=== PATIENT | female | born 1950 | race Caucasian/White ===

== ENCOUNTER → 2016-11-11 | Outpatient (CLI) | payer BC ==
[~2016-11-11] MED LIST: ACET-749 PO; ASCO-63 PO; ASPI81TA28 PO; B-CO1CAP17 PO; BIOT1CAP3 PO; CALC-388 PO; CYCL0.052 OP; FERR1TAB24 PO; INSDGI SC; INSU100I2 SC; INSUINJ4 SC; ISOS30TA35 PO; LPR25 PO; LSN20 PO; METF500T5 PO; MULT-513 PO; OMEG10007 PO; PANC24002 PO; PANC6000 PO; PRT/40 PO; ROSU10TA24 PO; ROSU20TA PO; ZINC1TAB PO; ZOLE5INJ3 INJ
--- NOTE | 2016-11-12 07:37 | MAMMOGRAPHY REPORT ---
BILATERAL DIGITAL SCREENING MAMMOGRAM TOMOSYNTHESIS WITH CAD: 11/11/2016 CLINICAL HISTORY: Routine screening. TECHNIQUE: Breast tomosynthesis in addition to standard 2D mammography was performed. Current study was also evaluated with a Computer Aided Detection (CAD) system. COMPARISON: Comparison is made to exams dated: 11/06/2015 mammogram, 11/11/2014 mammogram, 10/30/2012 m ammogram, and 10/31/2013 mammogram - [facility]. BREAST COMPOSITION: The tissue of both breasts is heterogeneously dense, which may obscure small ma sses. FINDINGS: No suspicious masses, calcifications, or areas of architectural distortion are noted in e ither breast. There has been no significant interval change compared to prior exams. IMPRESSION: ACR BI-RADS CATEGORY 1: NEGATIVE There is no mammographic evidence of malignancy. A 1 year screening mammogram is recommended. The p atient will receive written notification of the results. Approximately 10% of breast cancers are not detected with mammography. A negative mammographic repor t should not delay biopsy if a clinically suggestive mass is present. Alexsandra Montero M.D. ah/:11/11/2016 15:50:51 Front Office Associate: Yanet Grimm RT(R)(M)(BD), [facility] letter sent: Normal 1/2 BI-RADS Code: ACR BI-RADS Category 1: Negative
== END | disposition home or self-care (01) ==
LOC: C.MAMM 12:52
PROVIDERS: ATTEND Obstetrics & Gynecology
DX: Z12.31 Encounter for screening mammogram for malignant neoplasm of breast (principal)

== ENCOUNTER → 2016-11-18 | Outpatient (CLI) | payer BC ==
[2016-11-18 17:54] LABS: URINE APPEARANCE TURBID (CLEAR); URINE BILIRUBIN NEG (NEG); URINE COLOR DK YELLOW; URINE EPITHELIAL CELL AUTO >30 /lpf (0-5); URINE NITRITE NEG (NEG); URINE SPECIFIC GRAVITY 1.023 (1.000-1.030); UROBILINOGEN NEG (NEG)
[2016-11-18 17:55] LABS: MANUAL MICROSCOPIC REQUIRED? NO; REVIEW REQ? NO
== END | disposition home or self-care (01) ==
LOC: C.LABBFT 14:37
PROVIDERS: ATTEND Internal Medicine
DX: R39.9 Unspecified symptoms and signs involving the genitourinary system (principal)

== ENCOUNTER → 2017-01-24 | Outpatient (CLI) | payer BC ==
[~2017-01-24] MED LIST changes: -ACET-749 PO; +PANT40TA2 PO; -PRT/40 PO
[2017-01-24 13:49] LABS: ESTIMATED AVERAGE GLUCOSE 186 mg/dl; HA1C FLAG Normal (Normal)
== END | disposition home or self-care (01) ==
LOC: C.LAB1850 11:46
PROVIDERS: ATTEND Nurse Practitioner Family
DX: E10.65 Type 1 diabetes mellitus with hyperglycemia (principal)

== ENCOUNTER → 2017-03-02 | Outpatient (CLI) | payer BC | END | disposition home or self-care (01) | LOC: C.PATHSPEC 16:47 | PROVIDERS: ATTEND Dermatology | DX: L72.11 Pilar cyst (principal) ==

== ENCOUNTER → 2017-04-25 | Outpatient (CLI) | payer BC ==
[~2017-04-25] MED LIST changes: -PANT40TA2 PO; +PRT/40 PO
[2017-04-25 12:56] LABS: ESTIMATED AVERAGE GLUCOSE 206 mg/dl; HA1C FLAG Normal (Normal)
[2017-04-25 13:41] LABS: ALT/SGPT 95 U/L (12-78); BLOOD UREA NITROGEN 24 mg/dl (7-18); BUN/CREATININE RATIO 26.5 (10-20); CALCIUM 9.4 mg/dl (8.5-10.1); CARBON DIOXIDE 29 mmol/L (21-32); CHLORIDE 101 mmol/L (98-107); CREATININE 0.92 mg/dl (0.60-1.20); GLUCOSE 132 mg/dl (70-99); POTASSIUM 4.3 mmol/L (3.5-5.1); SODIUM 136 mmol/L (136-145)
[2017-04-25 13:51] LABS: ALB/GLOB RATIO 1.2 (0.9-2); ALKALINE PHOSPHATASE 68 U/L (45-117); AST/SGOT 95 U/L (15-37); THYROID STIMULATING HORMONE 0.865 uIu/ml (0.300-4.500)
--- NOTE | 2017-05-03 06:33 | CODING QUERY MEDICAL NECESSITY ---
CQSUPPORTING DIAGNOSIS NEEDED A supporting diagnosis is required for the test/procedure performed on this patient in order for us to be reimbursed by the patient's insurance. Please provide a supporting diagnosis for the following test/procedure listed below next to the test name along with your signature. *If there is no additional diagnosis for this patient that would support the following test/procedure please document that below next to the test/procedure. Test(s)/Procedure(s) that require a supporting diagnosis: DOS 04/25/17 VITAMIN D TEST Provider Signature: Date: Thank you Prabha Anton Health Information Management Once completed, please kindly fax back to [phone] For questions please call [phone]
== END | disposition home or self-care (01) ==
LOC: C.LABBFT 11:07
PROVIDERS: ATTEND Internal Medicine
DX: E10.65 Type 1 diabetes mellitus with hyperglycemia (principal); E78.00 Pure hypercholesterolemia, unspecified; E55.9 Vitamin D deficiency, unspecified

== ENCOUNTER → 2017-04-28 | Outpatient (CLI) | payer BC ==
--- NOTE | 2017-04-28 14:07 | DIAGNOSTIC IMAGING REPORT ---
CT SCAN OF THE ABDOMEN COMBO LIVER PROTOCOL CLINICAL HISTORY: Follow-up hepatic lesions. COMPARISON STUDY: Abdominal CT scans dated 05/04/2016, 11/03/2015, and 10/29/2010. Abdominal MRI dated 04/09/2011. TECHNIQUE: Before and following the IV administration of 118 cc of Optiray 320, CT scan of the abdomen is performed from the lung bases to the pelvic inlet utilizing the liver protocol. Images are reviewed in the axial, sagittal, and coronal planes. IV contrast was administered without complication. Automated dose control exposure was utilized. CT DOSE: 771.39 mGycm FINDINGS: Lung bases: The heart is normal in size and without pericardial effusion. The lung bases are clear noting bibasilar atelectasis. Liver: The contrast-enhanced liver is normal in size, contour, and attenuation. There is unchanged appearance of scattered small hepatic hypodense lesions (at least 5). These cannot be definitely characterized but have not significantly changed as compared to recent prior studies. The largest lesions are in the left lobe seen on image #89 measuring 9 mm and in the right lobe on image #101 measuring 10 mm. Hepatic and portal pressure: Hepatic arterial anatomy is conventional. The hepatic artery arises directly from the abdominal aorta. The hepatic veins, portal veins, and superior mesenteric vein are patent. Gallbladder: Surgically absent noting clips in the gallbladder fossa. Spleen: Surgically absent. Pancreas: Surgically absent. Adrenal glands: Unremarkable. Kidneys: The contrast enhanced kidneys are normal in size and without hydronephrosis. The kidneys enhance symmetrically. Abdominal vasculature: The abdominal aorta is normal in course and caliber. 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 There is moderate to severe constipation. There are 2 bowel containing ventral hernias. No bowel obstruction is seen. The appendix is well-visualized and normal. Peritoneum: There is no intraperitoneal free air or abdominal ascites. Lymphadenopathy: None. Skeletal structures: The skeletal structures are osteopenic. There is a 10 mm densely calcified nodule within the thecal sac eccentric to the right at the level of T10. This is unchanged from previous and could represent a small meningioma or calcified disc fragment. No lytic or blastic lesions are seen. IMPRESSION: 1. There are no acute infectious or inflammatory findings in the abdomen or pelvis. 2. 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 3. There are scattered (at least 5) small low-density hepatic lesions. These are too small for definitive characterization and have not significantly changed in appearance as compared to 05/04/2016. 4. Moderate constipation. 5. There are bowel containing ventral hernias. 6. Additional findings as above. Electronically signed by: Alfonso Gill M.D. 04/28/2017 2:05 PM Dictated Date/Time: 04/28/2017 1:45 PM
== END | disposition home or self-care (01) ==
LOC: C.CTS 12:14
PROVIDERS: ATTEND Physician Assistant
DX: K76.9 Liver disease, unspecified (principal); K86.2 Cyst of pancreas; Z90.81 Acquired absence of spleen; Z98.890 Other specified postprocedural states; K59.00 Constipation, unspecified; K43.9 Ventral hernia without obstruction or gangrene

== ENCOUNTER → 2017-05-02 | Outpatient (CLI) | payer BC ==
[2017-05-02 17:58] LABS: URINE APPEARANCE CLEAR (CLEAR); URINE BILIRUBIN NEG (NEG); URINE COLOR YELLOW; URINE NITRITE NEG (NEG); URINE SPECIFIC GRAVITY 1.013 (1.000-1.030); UROBILINOGEN NEG (NEG); ZZUR CULT IF INDIC CLEAN CATCH YES
[2017-05-02 18:01] LABS: MANUAL MICROSCOPIC REQUIRED? NO; REVIEW REQ? NO
== END | disposition home or self-care (01) ==
LOC: C.LABBFT 17:49
PROVIDERS: ATTEND Internal Medicine
DX: R39.9 Unspecified symptoms and signs involving the genitourinary system (principal); R74.0 Nonspecific elevation of levels of transaminase and lactic acid dehydrogenase [LDH]

== ENCOUNTER → 2017-05-31 | Outpatient (CLI) | payer BC | END | disposition home or self-care (01) | LOC: C.LABBFT 13:35 | PROVIDERS: ATTEND Internal Medicine | DX: R74.0 Nonspecific elevation of levels of transaminase and lactic acid dehydrogenase [LDH] (principal) ==

== ENCOUNTER → 2017-06-21 | Day surgery (SDC) | payer BC ==
[2017-06-15 15:48] VITALS: Ht 157.5 cm; Wt 61.4 kg
[~2017-06-21] VITALS: Ht 157.5 cm; Wt 61.4 kg
[~2017-06-21] MED LIST changes: +LIDOCAINE HCL 2% 2 ML VIAL (20MG/ML) ONE; +PROPOFOL IV EMULSION 10 MG/ML 20 ML VIAL IV ONE; -ROSU10TA24 PO; +SODIUM CHLORIDE 0.9% 500ML 500 ML IV ONE; -ZINC1TAB PO
--- NOTE | 2017-06-21 10:37 | Endo History and Physical ---
History & Physical Date of Service: Jun 21, 2017. Chief Complaint: ESOPHAGEAL VARICES Referring Physician: DR CONLEY History of Present Illness 66 yo CF who presents for EGD secondary to esophageal varices. Past Medical History Diabetes, Osteoporosis, Pulmonary Emboli, Reflux, High Cholesterol, Hypertension , Other, [place] Past Surgical History Hx Cardiac Surgery: Yes (HEART CATH, NO STENTS) Hx Internal Defibrillator: No Hx Pacemaker: No Hx Abdominal Surgery: Yes (PARUL, SPLEENECTOMY, PARTIAL GASTRECTOMY, HYSTER, VULVULAR CYSTECTOMY) Hx of Implantable Prosthesis: No Hx Post-Op Nausea and Vomiting: No Hx Cancer Surgery: Yes (PANCREATECTOMY) Hx Thoracic Surgery: No Hx Orthopedic: Yes (LT WRIST SURGERY X2 S/P BREAK) Hx Urinary Tract Surgery: No Family History Polyp Social History Smoking Status: Never Smoker Hx Substance Use: No Hx Alcohol Use: No Allergies Coded Allergies: Oxycodone (Verified Allergy, Unknown, "BRAIN DOESN'T FUNCTION RIGHT", 06/21) Amoxicillin (Verified Adverse Reaction, Unknown, YEAST INFECTIONS, 06/21/17 ) Current Medications Reported Home Medications Medications Dose Route/Sig Max Daily Dose Days Date Category Dose Instructions Lantus (Insulin Glargine) 100 Unit/Ml Inj 9 Units SC HS 06/15/17 Reported Crestor (Rosuvastatin Calcium) 20 Mg Tab 20 Mg PO HS 06/15/17 Reported Zoledronic Acid 5 Mg/100 Ml Inj 5 Mg INJ YEARLY 06/25/16 Reported Calcium + D3 600-200 mg-Unit (Calcium Carbonate-Vitamin D) 1 Tab Tab 2 Tabs PO HS 06/25/16 Reported Biotin 5,000 Mcg Cap 5,000 Mcg PO DAILY 06/25/16 Reported Mvi With Minerals (Multivitamins/Minerals) Tab 1 Tab PO BID 06/25/16 Reported Nephrocaps (Vitamin B Complex/Vit C/Folic Acid) Cap 1 Cap PO NOON 06/25/16 Reported Restasis (Cyclosporine (Ophth)) 0.05 % Emu 1 Drop OP BID PRN 06/25/16 Reported Pantoprazole Sodium (Pantoprazole) 40 Mg Tab 40 Mg PO QAM 06/25/16 Reported Lisinopril 20 Mg Tab 20 Mg PO QAM 06/25/16 Reported Lopressor (Metoprolol Tartrate) 25 Mg Tab 0.5 Tab PO BID 06/25/16 Reported Imdur Ext Rel (Isosorbide Mononitrate) 30 Mg Tabcr 30 Mg PO LUNCH 06/25/16 Reported Humalog Kwikpen (Insulin Lispro (Human)) 100 Unit/Ml Inj 1 Dose SC TIDM 06/25/16 Reported ADMINISTER 1 UNIT FOR EVERY 5 CARBS TAKEN PLUS SLIDING SCALE Lantus Solostar Pen (Insulin Glargine) 100 Unit/ Inj 7 Units SC QAM 06/25/16 Reported Creon (Pancrelipase (Lipase-Protease-) 1 Cap Cap 2 Cap PO WITH SNACKS 08/13/15 Reported Creon (Pancrelipase (Lipase-Protease-) 1 Cap Cap 3 Cap PO WM 08/13/15 Reported Glucophage Er (Metformin HCl) 500 Mg Tab 2 Tabs PO BIDM 09/02/14 Reported Feosol (Ferrous Sulfate) 65 Mg Tab 65 Mg PO QAM 12/17/13 Reported Aspirin Ec (Aspirin) 81 Mg Tab 81 Mg PO HS 09/10/13 Reported Vitamin C (Ascorbic Acid) 500 Mg Tab 500 Mg PO DAILY 02/17/13 Reported [place]-3 (Fish Oil) 1 Ea Cap 1,000 Mg PO BID 10/29/10 Reported Vital Signs Weight (Kilograms): 61.36 Height (Feet): 5 Height (Inches): 2 Physical Exam General Appearance: WD/WN, no apparent distress Respiratory/Chest: Auscultation: breath sounds normal Cardiovascular: Heart Auscultation: RRR Abdomen: Bowel Sounds: normal Inspection & Palpation: soft, non-distended, no tenderness, guarding & rebound Assessment and Plan Assessment: 66 yo CF who presents for EGD secondary to esophageal varices. Plan: Proceed with EGD.
--- NOTE | 2017-06-21 11:29 | Discharge Instructions ---
Endoscopy Patient Instructions Date / Procedure(s) Performed Jun 21, 2017. EGD Allergy Information Coded Allergies: Oxycodone (Verified Allergy, Unknown, "BRAIN DOESN'T FUNCTION RIGHT", 06/21) Amoxicillin (Verified Adverse Reaction, Unknown, YEAST INFECTIONS, 06/21/17 ) Discharge Date / Findings Jun 21, 2017. Small Esophageal varices Medication Instructions Stopped Medication(s): 06/18/17 METFORMIN 06/20/17 ASPIRIN 81MG OK to resume all medications today as prescribed Reported Home Medications Medications Dose Route/Sig Max Daily Dose Days Date Category Dose Instructions Lantus (Insulin Glargine) 100 Unit/Ml Inj 9 Units SC HS 06/15/17 Reported Crestor (Rosuvastatin Calcium) 20 Mg Tab 20 Mg PO HS 06/15/17 Reported Zoledronic Acid 5 Mg/100 Ml Inj 5 Mg INJ YEARLY 06/25/16 Reported Calcium + D3 600-200 mg-Unit (Calcium Carbonate-Vitamin D) 1 Tab Tab 2 Tabs PO HS 06/25/16 Reported Biotin 5,000 Mcg Cap 5,000 Mcg PO DAILY 06/25/16 Reported Mvi With Minerals (Multivitamins/Minerals) Tab 1 Tab PO BID 06/25/16 Reported Nephrocaps (Vitamin B Complex/Vit C/Folic Acid) Cap 1 Cap PO NOON 06/25/16 Reported Restasis (Cyclosporine (Ophth)) 0.05 % Emu 1 Drop OP BID PRN 06/25/16 Reported Pantoprazole Sodium (Pantoprazole) 40 Mg Tab 40 Mg PO QAM 06/25/16 Reported Lisinopril 20 Mg Tab 20 Mg PO QAM 06/25/16 Reported Lopressor (Metoprolol Tartrate) 25 Mg Tab 0.5 Tab PO BID 06/25/16 Reported Imdur Ext Rel (Isosorbide Mononitrate) 30 Mg Tabcr 30 Mg PO LUNCH 06/25/16 Reported Humalog Kwikpen (Insulin Lispro (Human)) 100 Unit/Ml Inj 1 Dose SC TIDM 06/25/16 Reported ADMINISTER 1 UNIT FOR EVERY 5 CARBS TAKEN PLUS SLIDING SCALE Lantus Solostar Pen (Insulin Glargine) 100 Unit/ Inj 7 Units SC QAM 06/25/16 Reported Creon (Pancrelipase (Lipase-Protease-) 1 Cap Cap 2 Cap PO WITH SNACKS 08/13/15 Reported Creon (Pancrelipase (Lipase-Protease-) 1 Cap Cap 3 Cap PO WM 08/13/15 Reported Glucophage Er (Metformin HCl) 500 Mg Tab 2 Tabs PO BIDM 09/02/14 Reported Feosol (Ferrous Sulfate) 65 Mg Tab 65 Mg PO QAM 12/17/13 Reported Aspirin Ec (Aspirin) 81 Mg Tab 81 Mg PO HS 09/10/13 Reported Vitamin C (Ascorbic Acid) 500 Mg Tab 500 Mg PO DAILY 02/17/13 Reported [place]-3 (Fish Oil) 1 Ea Cap 1,000 Mg PO BID 10/29/10 Reported Provider Instructions Activity Restrictions - No exercising or heavy lifting for 24 hours. - Do not drink alcohol the day of the procedure. - Do not drive a car or operate machinery until the day after the procedure. - Do not make any important decisions or sign important papers in 24 hours after the procedure. Following Day: - Return to full activity which may include returning to work/school. Diet Start your diet with liquids and light foods (jello, soup, juice, toast). Then eat your usual diet if not nauseated. Treatment For Common After Affects For mild abdominal pain, bloating, or excessive gas: - Rest - Eat lightly - Lie on right side Follow-Up Information Follow-up with DR CONLEY as scheduled Anesthesia Information What You Should Know You have had a procedure that required some medicine to reduce anxiety and discomfort. This treatment is called moderate sedation. After receiving the treatment, you may be sleepy, but you will be able to breathe on your own. The effects of the treatment may last for several hours. Follow these instructions along with Activity/Diet recommendations noted above: * Do NOT do anything where dizziness or clumsiness would be dangerous. * Rest quietly at home today, then you can be up and about tomorrow. * Have a responsible person stay with you the rest of today. * You may have had an I.V. today. If so, you may take the dressing off later today. Recommendations Call your doctor if: * Trouble breathing * Continuous vomiting for more than 24 hours * Temperature above 101 degrees * Severe abdominal pain or bloating * Pain not relieved by pain medicine ordered * There is increased drainage or redness from any incision * A large amount of rectal bleeding greater than 2-3 tablespoons. (If you had a polyp/s removed or have hemorrhoids, a small amount of blood - from the rectum is to be expected.) * You have any unanswered questions or concerns. IN THE EVENT OF A SERIOUS EMERGENCY, GO TO THE NEAREST EMERGENCY ROOM Your discharge instructions were prepared by provider Joel Main. Patient Instructions Signature Page Maria Antonia Alvarado Patient (or Guardian) Signature/Date: I have read and understand the instructions given to me by my caregivers. Caregiver/RN/Doctor Signature/Date: The above-named patient and/or guardian has received patient instructions on this date. + Original Patient Signature Page (only) stays with chart. Please make copy for patient.
--- NOTE | 2017-06-21 11:36 | GI REPORT ---
Procedure Date: 06/21/2017 10:49 AM Procedure: Upper GI endoscopy Indications: Follow-up of esophageal varices Medicines: Monitored Anesthesia Care Complications: No immediate complications. Estimated Blood Loss: Estimated blood loss: none. Procedure: Pre-Anesthesia Assessment: - Prior to the procedure, a History and Physical was performed, and patient medications and allergies were reviewed. The patient's tolerance of previous anesthesia was also reviewed. The risks and benefits of the procedure and the sedation options and risks were discussed with the patient. All questions were answered, and informed consent was obtained. Prior Anticoagulants: The patient has taken aspirin, last dose was 1 day prior to procedure. ASA Grade Assessment: III - A patient with severe systemic disease. After reviewing the risks and benefits, the patient was deemed in satisfactory condition to undergo the procedure. After obtaining informed consent, the endoscope was passed under direct vision. Throughout the procedure, the patient's blood pressure, pulse, and oxygen saturations were monitored continuously. The scope was introduced through the mouth, and advanced to the second part of duodenum. The upper GI endoscopy was accomplished without difficulty. Findings: Grade I varices were found in the lower third of the esophagus. They were 3 mm in largest diameter. Evidence of an antrectomy was found in the gastric antrum. This was characterized by healthy appearing mucosa. The examined duodenum was normal. Impression: - Grade I esophageal varices. - An antrectomy was found, characterized by healthy appearing mucosa. - Normal examined duodenum. - No specimens collected. Recommendation: - Resume previous diet. - Continue present medications. - Repeat the upper endoscopy in 2 years for surveillance. - Return to primary care physician as previously scheduled. Joel Main, 06/21/2017 11:35:43 AM This report has been signed electronically. Note Initiated On: 06/21/2017 10:49 AM I attest to the content of the Intraoperative Record and orders documented therein, exceptions below
--- NOTE | 2017-06-21 11:50 | Anesthesiology Progress Note ---
Anesthesia Post Op Note Date & Time Jun 21, 2017 at 11:50 Vital Signs Pain Intensity: 0 Vital Signs Past 12 Hours Date Time Temp Pulse Resp B/P (MAP) Pulse Ox O2 Delivery O2 Flow Rate FiO2 06/21/17 11:32 36.5 68 18 140/80 (100) 96 Room Air 06/21/17 10:36 36.8 65 18 162/93 (116) 95 Room Air Notes Mental Status: alert / awake / arousable, participated in evaluation Pt Amnestic to Procedure: Yes Nausea / Vomiting: adequately controlled Pain: adequately controlled Airway Patency, RR, SpO2: stable & adequate BP & HR: stable & adequate Hydration State: stable & adequate Anesthetic Complications: no major complications apparent
[2017-06-21 12:02] VITALS: BP 153/90; PULSE 66; O2SAT 95
== END | disposition home or self-care (01) ==
LOC: C.GI 09:57
PROVIDERS: ATTEND Internal Medicine
DX: I85.00 Esophageal varices without bleeding (principal); E10.9 Type 1 diabetes mellitus without complications; M81.0 Age-related osteoporosis without current pathological fracture; Z86.711 Personal history of pulmonary embolism; K21.9 Gastro-esophageal reflux disease without esophagitis; E78.00 Pure hypercholesterolemia, unspecified; I10 Essential (primary) hypertension; I25.2 Old myocardial infarction; Z90.49 Acquired absence of other specified parts of digestive tract; Z90.81 Acquired absence of spleen; Z90.710 Acquired absence of both cervix and uterus; Z85.07 Personal history of malignant neoplasm of pancreas; Z79.84 Long term (current) use of oral hypoglycemic drugs; Z79.82 Long term (current) use of aspirin

== ENCOUNTER 2017-10-17 19:50 | Inpatient (IN) | payer BC, OTHER ==
[~2017-10-17] VITALS: Ht 157.5 cm; Wt 65.2 kg
[~2017-10-17 19:50] MED LIST changes: -B-CO1CAP17 PO; +B-COCAP2 PO; -LIDOCAINE HCL 2% 2 ML VIAL (20MG/ML) ONE; +LISI-726 PO; -LSN20 PO; +PANT40TA2 PO; -PROPOFOL IV EMULSION 10 MG/ML 20 ML VIAL IV ONE; -PRT/40 PO; -SODIUM CHLORIDE 0.9% 500ML 500 ML IV ONE
[2017-10-17] MEDS ORDERED: ONDANSETRON INJ 2 MG/ML 2 ML VIAL IV STA (19:59)
[2017-10-17] MEDS ORDERED: SODIUM CHLORIDE 0.9% 1000ML 1,000 ML IV STA (19:59)
[2017-10-17] MEDS ORDERED: SODIUM CHLORIDE 0.9% 1000ML 500 ML IV STA (19:59)
[2017-10-17] MEDS ORDERED: FENTANYL CITRATE INJ 50 MCG/1 ML 2 ML VIAL IV PRN (20:00)
[2017-10-17 20:12] LABS: BASO % 0.3 %; BASO ABS # 0.03 K/uL (0-0.2); EOS ABS # 0.12 K/uL (0-0.5); HEMATOCRIT 42.8 % (37-47); IG# 0.05 K/uL (0.00-0.02); LYMPH % 20.6 %; LYMPH ABS # 2.41 K/uL (1.2-3.4); MEAN CELL VOLUME 97.1 fL (80-100); MEAN CORPUSCULAR HEMOGLOBIN 31.7 pg (25-34); MEAN CORPUSCULAR HGB CONC 32.7 g/dl (32-36); MEAN PLATELET VOLUME 11.8 fL (7.4-10.4); MONO % 6.8 %; NEUT % 70.9 %; PLATELET COUNT 298 K/uL (130-400); RED CELL DISTRIBUTION WIDTH CV 12.9 % (11.5-14.5); RED CELL DISTRIBUTION WIDTH SD 45.5 fL (36.4-46.3); WHITE BLOOD COUNT 11.71 K/uL (4.8-10.8)
[2017-10-17 20:35] LABS: ALBUMIN 3.6 gm/dl (3.4-5.0); ALKALINE PHOSPHATASE 78 U/L (45-117); ALT/SGPT 51 U/L (12-78); AST/SGOT 44 U/L (15-37); BLOOD UREA NITROGEN 22 mg/dl (7-18); CALCIUM 9.4 mg/dl (8.5-10.1); CARBON DIOXIDE 28 mmol/L (21-32); GLUCOSE 541 mg/dl (70-99); LIPASE 30 U/L (73-393); POTASSIUM 5.4 mmol/L (3.5-5.1); SODIUM 134 mmol/L (136-145); TOTAL PROTEIN 7.3 gm/dl (6.4-8.2)
[2017-10-17] MEDS ORDERED: NovoLIN-R INSULIN PER UNIT CHARGE IV STA (20:55)
[2017-10-17] MEDS ORDERED: SODIUM CHLORIDE 0.9% 500ML 500 ML IV STA (20:55)
--- NOTE | 2017-10-17 20:57 | DIAGNOSTIC IMAGING REPORT ---
ABD/PELVIS NO IV OR ORAL CONT CLINICAL HISTORY: 66 years-old Female presenting with acute abdominal pain. TECHNIQUE: Multidetector CT of the abdomen and pelvis was performed without the use of intravenous contrast. IV contrast: None. A dose lowering technique was used consistent with the principles of ALARA (as low as reasonably achievable). COMPARISON: 04/28/2017. CT DOSE (mGy.cm): The estimated cumulative dose is 303.91 mGy.cm. FINDINGS: Upkeep Worker topogram: Massive gaseous distention of the stomach. Lung bases: Extensive basilar opacities, likely atelectasis. Solid 8 mm nodule in the right middle lobe (series 3 image 4). Normal heart size. Mild coronary artery calcification. No pericardial or pleural effusion. Liver: Normal morphology. Normal density. Biliary: Expected pneumobilia with a hepaticojejunostomy.. Gallbladder surgically absent. Pancreas: Severe parenchymal atrophy versus postsurgical changes of pancreatectomy. Spleen: Surgically absent. Adrenal glands: Normal. Kidneys and ureters: Left perinephric fat stranding, nonspecific. No hydronephrosis. No nephrolithiasis. Normal proximal ureters. Distal ureters poorly assessed. Bladder: Normal. Pelvic organs: Normal noncontrast appearance. Bowel: Diverticulosis of the sigmoid colon. Small bowel diffusely contains feces. There is significantly dilated small bowel, measuring over 4 cm in diameter. The blind-ending hepatobiliary limb is dilated. Dilated small bowel to the the level of the right lower quadrant at an anastomotic site or suture line, where there is a focal transition point (series 3 image 334). A gastrojejunostomy is noted. Massive dilation of the stomach. Postsurgical changes of distal gastrectomy. Peritoneal cavity: Trace free fluid in the pelvis. Lymph nodes: Suggestion of numerous small retroperitoneal lymph nodes resulting in a diffusely infiltrated appearance of the perivascular region. Vasculature: Atherosclerosis of the normal caliber abdominal aorta. Abdominal wall: Small amount of ascites in a ventral hernia. Additional ventral hernia contains dilated loop of small bowel. Musculoskeletal: Normal. IMPRESSION: 1. Findings consistent with complete small bowel obstruction in the right lower quadrant at the level of anastomosis or suture line. Resulting massive distention of the Jon limb as well as the hepatobiliary limb. 2. Postsurgical changes suggestive of Whipple procedure. 3. Suggestion of numerous small retroperitoneal lymph nodes, which raises concern for malignancy although these may be reactive. 4. Solid 8 mm nodule in the right middle lobe. This was not present on prior CT chest from 2011 and not included within the [id number] on prior abdominal pelvic CT. The report will be called/faxed according to standard departmental protocol. Electronically signed by: Boris Yousif M.D. 10/17/2017 8:56 PM Dictated Date/Time: 10/17/2017 8:42 PM
[2017-10-17] MEDS ORDERED: FERR27TA5 PO (22:07)
[2017-10-17] MEDS ORDERED: INSDGIPEN SC ×2 (22:07)
[2017-10-17] MEDS ORDERED: FERR83TA2 PO (22:09)
--- NOTE | 2017-10-17 22:12 | Medical Consult ---
Consultation Date of Consultation: Oct 17, 2017. Attending Physician: Reason for Consultation: Small bowel obstruction History of Present Illness Patient presented to the ED due to generalized abdominal pain which she states started earlier today while she was eating a large family meal for bernardo. States her pain was about a 5/10 upon presenting to the ED. She reports nausea and dry heaves but is not able to actually vomit anything up due to a surgical history of Magan fundoplication. PSHx also significant for whipple which was performed along with her magan at [facility] in 2010, cholecystectomy, and a prior PSBO. States she did have a bowel movement earlier today. She also reports pushing out a very small amount of stool during her current hospital visit. She does note a small amount of blood but believes this is due to her hemorrhoids. She last ate this afternoon. Upon entering the room, an NG tube was already placed and she does report almost complete remission of her pain and nausea since. Reports that she does have a history of a couple heart attacks in the past and follows with a boat carpenter once a year. She currently takes ASA 81mg PO QD. Denies use of any other blood thinning or anticoagulant medications. Family History No pertinent family history Social History Smoking Status: Never Smoker Drug Use: none Marital Status: Occupation Status: retired Allergies Coded Allergies: Oxycodone (Verified Allergy, Unknown, "BRAIN DOESN'T FUNCTION RIGHT", ) Amoxicillin (Verified Adverse Reaction, Unknown, YEAST INFECTIONS, ) Current Inpatient Medications Current Inpatient Medications Medications (Trade) Dose Ordered Sig/Tacos Route Start Time Stop Time Status Last Admin Dose Admin Sodium Chloride 1,000 ml @ 125 mls/hr Q8H STAT IV 10/17/17 19:59 10/18/17 03:58 Fentanyl Citrate (Fentanyl Inj) 50 mcg Q20M PRN IV 10/17/17 20:00 10/31/17 19:59 10/17/17 20:16 50 MCG Review of Systems Constitutional: No fever, No chills, No sweats, No weight loss Respiratory: No shortness of breath Cardiovascular: No chest pain Abdomen: + pain (Moderate prior to NG, mild now.), + nausea (prior to NG), + vomiting (dry heaves), No diarrhea, No constipation Genitourinary - Female: No dysuria Integumentary: No rash, No color change Physical Exam Date Time Temp Pulse Resp B/P (MAP) Pulse Ox O2 Delivery O2 Flow Rate FiO2 10/17/17 21:33 91 135/91 90 Room Air 10/17/17 20:48 43 10/17/17 20:43 88 10/17/17 20:22 85 22 139/84 93 Nasal Cannula 2.0 10/17/17 20:04 93 Nasal Cannula 2.0 10/17/17 20:04 93 Nasal Cannula 2.0 10/17/17 19:50 90 22 150/102 86 Room Air Patient resting in bed. very relieved since NG tube placement. General Appearance: WD/WN, no apparent distress Head: normocephalic, atraumatic Eyes: normal inspection ENT: hearing grossly normal Neck: trachea midline Respiratory/Chest: no respiratory distress, no accessory muscle use Abdomen/GI: non tender, soft, no organomegaly, no pulsatile mass, + abnormal bowel sounds (mildly hyperactive) Neurologic/Psych: alert, oriented x 3 Skin: normal color, warm/dry, no rash Laboratory Results Last 24 Hours Test 10/17/17 19:30 10/17/17 20:56 White Blood Count 11.71 K/uL Red Blood Count 4.41 M/uL Hemoglobin 14.0 g/dL Hematocrit 42.8 % Mean Corpuscular Volume 97.1 fL Mean Corpuscular Hemoglobin 31.7 pg Mean Corpuscular Hemoglobin Concent 32.7 g/dl Platelet Count 298 K/uL Mean Platelet Volume 11.8 fL Neutrophils (%) (Auto) 70.9 % Lymphocytes (%) (Auto) 20.6 % Monocytes (%) (Auto) 6.8 % Eosinophils (%) (Auto) 1.0 % Basophils (%) (Auto) 0.3 % Neutrophils # (Auto) 8.30 K/uL Lymphocytes # (Auto) 2.41 K/uL Monocytes # (Auto) 0.80 K/uL Eosinophils # (Auto) 0.12 K/uL Basophils # (Auto) 0.03 K/uL RDW Standard Deviation 45.5 fL RDW Coefficient of Variation 12.9 % Immature Granulocyte % (Auto) 0.4 % Immature Granulocyte # (Auto) 0.05 K/uL Sodium Level 134 mmol/L Potassium Level 5.4 mmol/L Chloride Level 98 mmol/L Carbon Dioxide Level 28 mmol/L Anion Gap 8.0 mmol/L Blood Urea Nitrogen 22 mg/dl Creatinine 1.20 mg/dl Est Creatinine Clear Calc Drug Dose 40.3 ml/min Estimated GFR () 54.2 Estimated GFR (Non- 46.7 BUN/Creatinine Ratio 18.7 Random Glucose 541 mg/dl Calcium Level 9.4 mg/dl Total Bilirubin 0.6 mg/dl Direct Bilirubin 0.2 mg/dl Aspartate Amino Transf (AST/SGOT) 44 U/L Alanine Aminotransferase (ALT/SGPT) 51 U/L Alkaline Phosphatase 78 U/L Troponin I < 0.015 ng/ml Total Protein 7.3 gm/dl Albumin 3.6 gm/dl Lipase 30 U/L Beta-Hydroxybutyric Acid 2.64 mg/dL Assessment & Plan Complete small bowel obstruction per CT abd/pelvis in ED Findings discussed with Dr. Joseph Due to her extensive surgical history and significant improvement with NG tube placement we will opt for conservative management at this time. If symptoms persist or worsen we may consider surgical management at that time - No surgical intervention necessary at this time. NPO, IV Fluids, bowel rest. NG tube in place, pain controlled without any pain medication - recommend IV dilaudid PRN for pain if necessary Admission per hospitalist service. Findings and plan discussed with patient and her family - all questions were answered. Surgery will continue to follow during her hospital stay. Please contact with any questions or concerns. Patient seen and examined, labs and imaging reviewed, agree with above. 66-year- old female with history of Whipple procedure and Alissa fundoplication as well as hysterectomy, now with small bowel obstruction. She had a previous episode a few years ago that resolved with non operative management. She had an NG-tube placed in the ER, and her symptoms significantly improved. This morning she states that she has passed a small amount of gas and is feeling much better. Abdomen soft, mildly distended, positive bowel sounds. Continue with non operative management, continue NG tube. If patient would require surgery, based on her complex surgical history she may be better served at a tertiary center. Nathalia Joseph, DO
--- NOTE | 2017-10-17 22:41 | History and Physical ---
History & Physical Date & Time of Service: Oct 17, 2017 at 22:35 Chief Complaint: Ab Pain Primary Care Physician: Collin Yee M.D. History of Present Illness Source: patient, family This is a 66 y/o F who presents with abdominal pain, nausea that started 4 hours ago. She reports that this started shortly after dinner. She has a history of bowel obstruction that resolved on its own without surgery but took about 7 days. She felt that this was similar. The patient has been in significant pain. Her pain was a 10/10 and is currently 5/10. Her last bowel movement was earlier today but it was a small one. She reports a tiny amount of blood that she thinks is from her hemorrhoids. Denies dark stools. She does report being able to pass gas today. The patient has a history of Whipple's procedure for pancreatic cancer. Has diabetes as a result. She denies diarrhea Denies chest pain, shortness of breath She also has an esophageal wrap which prevents her from vomiting, So she mostly dry heaves. Past Medical/Surgical History Medical Problems: (1) DIAB EVA WO COMPL, TYPE II OR UNSPEC TYPE, NOT UNCNTRLD Status: Chronic (2) HYPERTENSION NOS Status: Chronic (3) IRON DEFIC ANEMIA NOS Status: Chronic (4) MALIG JENNIFER PANCREAS NOS Status: Chronic (5) OSTEOPOROSIS NOS Status: Chronic Family History No pertinent family history Social History Smoking Status: Never Smoker Smokeless Tobacco Use: No Alcohol Use: none Drug Use: none Marital Status: Housing status: lives with family Occupational Status: retired Immunizations History of Influenza Vaccine: N/A History of Tetanus Vaccine?: YES - UNKNOWN DATE History of Pneumococcal: Yes History of Hepatitis B Vaccine: YES - UNKNOWN DATE Multi-Drug Resistant Organisms History of MDRO: No Allergies Coded Allergies: Oxycodone (Verified Allergy, Unknown, "BRAIN DOESN'T FUNCTION RIGHT", ) Amoxicillin (Verified Adverse Reaction, Unknown, YEAST INFECTIONS, ) Home Medications Scheduled Ascorbic Acid (Vitamin C), 500 MG PO DAILY Aspirin (Aspirin Ec), 81 MG PO HS Biotin (Biotin), 5,000 MCG PO DAILY Calcium Carbonate-Vitamin D (Calcium + D3 600-200 mg-Unit), 2 TABS PO HS Ferrous Sulfate (Ferrous Sulfate), 65 MG PO DAILY Fish Oil ([place]-3), 1,000 MG PO BID Insulin Glargine (Lantus Solostar), 11 UNITS SC QAM Insulin Glargine (Lantus Solostar), 12 UNITS SC HS Insulin Lispro (Human) (Humalog Kwikpen), 1 DOSE SC TIDM Isosorbide Mononitrate Ext Rel (Imdur Ext Rel), 30 MG PO LUNCH Lisinopril (Lisinopril), 20 MG PO QAM Metformin Hcl Er (Glucophage Er), 1,000 MG PO BIDM Metoprolol Tartrate (Lopressor), 12.5 MG PO BID Multivitamins/Minerals (Mvi With Minerals), 1 TAB PO BID Pancrelipase (Lipase-Protease- (Creon), 3 CAP PO WM Pancrelipase (Lipase-Protease- (Creon), 2 CAP PO WITH SNACKS Pantoprazole (Pantoprazole Sodium), 40 MG PO QAM Rosuvastatin Calcium (Crestor), 20 MG PO HS Vitamin B Cmplx/Vitc/Folic Ac (Nephrocaps), 1 CAP PO NOON Zoledronic Acid (Zoledronic Acid), 5 MG INJ YEARLY Scheduled PRN Cyclosporine (Ophth) (Restasis), 1 DROP OP BID PRN for DRY EYES Review of Systems Constitutional: No fever, No chills Respiratory: No cough, No sputum, No shortness of breath, No dyspnea on exertion, No dyspnea at rest Cardiovascular: No chest pain Abdomen: + pain, + nausea, No vomiting Genitourinary - Female: No dysuria, No urinary frequency, No urinary urgency Physical Exam Vital Signs Date Time Temp Pulse Resp B/P (MAP) Pulse Ox O2 Delivery O2 Flow Rate FiO2 10/17/17 21:33 91 135/91 90 Room Air 10/17/17 20:48 43 10/17/17 20:43 88 10/17/17 20:22 85 22 139/84 93 Nasal Cannula 2.0 10/17/17 20:04 93 Nasal Cannula 2.0 10/17/17 20:04 93 Nasal Cannula 2.0 10/17/17 19:50 90 22 150/102 86 Room Air General Appearance: no apparent distress Eyes: PERRL, EOMI Neck: supple Respiratory/Chest: lungs clear, normal breath sounds, no respiratory distress, no accessory muscle use Cardiovascular: regular rate, rhythm, no murmur Abdomen/GI: non tender, soft, + abnormal bowel sounds (hypoactive) Extremities/Musculoskelatal: no calf tenderness, no pedal edema Neurologic/Psych: no motor/sensory deficits, alert, oriented x 3 Diagnostics Laboratory Results Results Past 24 Hours Test 10/17/17 19:30 10/17/17 20:56 Range/Units White Blood Count 11.71 4.8-10.8 K/uL Red Blood Count 4.41 4.2-5.4 M/uL Hemoglobin 14.0 12.0-16.0 g/dL Hematocrit 42.8 37-47 % Mean Corpuscular Volume 97.1 80-100 fL Mean Corpuscular Hemoglobin 31.7 25-34 pg Mean Corpuscular Hemoglobin Concent 32.7 32-36 g/dl Platelet Count 298 130-400 K/uL Mean Platelet Volume 11.8 7.4-10.4 fL Neutrophils (%) (Auto) 70.9 % Lymphocytes (%) (Auto) 20.6 % Monocytes (%) (Auto) 6.8 % Eosinophils (%) (Auto) 1.0 % Basophils (%) (Auto) 0.3 % Neutrophils # (Auto) 8.30 1.4-6.5 K/uL Lymphocytes # (Auto) 2.41 1.2-3.4 K/uL Monocytes # (Auto) 0.80 0.11-0.59 K/uL Eosinophils # (Auto) 0.12 0-0.5 K/uL Basophils # (Auto) 0.03 0-0.2 K/uL RDW Standard Deviation 45.5 36.4-46.3 fL RDW Coefficient of Variation 12.9 11.5-14.5 % Immature Granulocyte % (Auto) 0.4 % Immature Granulocyte # (Auto) 0.05 0.00-0.02 K/uL Sodium Level 134 136-145 mmol/L Potassium Level 5.4 3.5-5.1 mmol/L Chloride Level 98 98-107 mmol/L Carbon Dioxide Level 28 21-32 mmol/L Anion Gap 8.0 3-11 mmol/L Blood Urea Nitrogen 22 7-18 mg/dl Creatinine 1.20 0.60-1.20 mg/dl Est Creatinine Clear Calc Drug Dose 40.3 ml/min Estimated GFR () 54.2 Estimated GFR (Non- 46.7 BUN/Creatinine Ratio 18.7 10-20 Random Glucose 541 70-99 mg/dl Calcium Level 9.4 8.5-10.1 mg/dl Total Bilirubin 0.6 0.2-1 mg/dl Direct Bilirubin 0.2 0-0.2 mg/dl Aspartate Amino Transf (AST/SGOT) 44 15-37 U/L Alanine Aminotransferase (ALT/SGPT) 51 12-78 U/L Alkaline Phosphatase 78 45-117 U/L Troponin I < 0.015 0-0.045 ng/ml Total Protein 7.3 6.4-8.2 gm/dl Albumin 3.6 3.4-5.0 gm/dl Lipase 30 73-393 U/L Beta-Hydroxybutyric Acid 2.64 0.2-2.81 mg/dL Urine Color YELLOW Urine Appearance CLEAR CLEAR Urine pH 5.0 4.5-7.5 Urine Specific [place] 1.027 1.000-1.030 Urine Protein NEG NEG Urine Glucose (UA) 3+ NEG Urine Ketones NEG NEG Urine Occult Blood NEG NEG Urine Nitrite POS NEG Urine Bilirubin NEG NEG Urine Urobilinogen NEG NEG Urine Leukocyte Esterase NEG NEG Urine WBC (Auto) 1-5 0-5 /hpf Urine RBC (Auto) 0-4 0-4 /hpf Urine Hyaline Casts (Auto) 0 0-5 /lpf Urine Epithelial Cells (Auto) 10-20 0-5 /lpf Urine Bacteria (Auto) 4+ NEG Microbiology Results 10/17/17 Urine Culture, Received Pending Impression Assessment and Plan 66 y/o F presenting with abdominal pain 2/2 SBO small bowel obstruction, complete Evidenced on Abdominal CT NPO, Bowel rest IVF NG decompression Cipro, Flagyl- allergy to Amox Surgery has evaluated the patient and recommends conservative management given extensive history Hyperglycemia, IDDM Given 6 units of regular insulin in the ED for Bsg of 540 Home dose of Lantus given Additional dose of regular insulin 6 units ISS Accu-checks IVFs recheck BMP am Hold metformin CAD / HTN Hold Aspirin, Crestor, Imdur, Lisinopril DVT proph: Lovenox Code: FUll Attending addendum: I have physically seen this patient, have supervised the medical residents activities, and agree with the H&P unless as otherwise noted. Assessment and Plan: Complete small bowel obstruction-- Admitted to the medical surgical floor Nothing by mouth status-hold all oral medications IV fluids NG tube to low intermittent suction Cipro IV/Flagyl IV Seen by surgery in the ED, recommending conservative treatment, we'll consult surgery Hyperglycemia/diabetes mellitus insulin requiring-- Patient took him a lot of extra sugar because she thought her symptoms might be related to low blood sugar, which resulted in high blood sugar. Given 6 units of regular insulin IV in the ED, and another 6 now for blood sugar 540 Continue Lantus home insulin dose Accu-Cheks before meals and at bedtime with NovoLog coverage per scale IV fluids as above Hold metformin BMP and magnesium in the a.m. CAD/hypertension - Hold outpatient dosing of aspirin, Crestor, and lisinopril We will place on Nitropaste to replace IMDUR. Level of Care Med/Surg Advanced Directives Existing Advance Directive: No Existing Living Will: No Existing Power of Parts Sales Manager: No Resuscitation Status FULL RESUSCITATION VTE Prophylaxis VTE Risk Assessment Done? Y/N: Yes Risk Level: Moderate Given or contraindicated: SCD's Social Service Consult None Apply
[2017-10-17] MEDS ORDERED: ONDANSETRON INJ 2 MG/ML 2 ML VIAL IV PRN (22:45)
[2017-10-17] MEDS ORDERED: ENOXAPARIN 40 MG/0.4 ML SYR SQ SCH (22:45)
[2017-10-17] MEDS ORDERED: ALUMINUM/MAGNESIUM/SIMETH (MAALOX MAX) 30 ML UDC PO PRN (22:45)
[2017-10-17] MEDS ORDERED: MAGNESIUM HYDROXIDE SUSP 30 ML UDC PO PRN (22:45)
[2017-10-17] MEDS ORDERED: ACETAMINOPHEN 325 MG TAB PO PRN (22:45)
[2017-10-17] MEDS ORDERED: POLYETHYLENE (MIRALAX) 17 GM PACK PO PRN (22:45)
[2017-10-17 23:57] VITALS: BP 151/76; PULSE 91; TEMP 36.5; O2SAT 91; BMI 26.3
[2017-10-18] VITALS (7 sets, daily range): BP systolic 129–161; BP diastolic 71–97; PULSE 71–96; TEMP 36.5–37.3; O2SAT 91–94
--- NOTE | 2017-10-18 | NUR ---
ID/A: Pt. arrived in room #377-2 at about 0000. Alert and oriented x 4. VSS. Made aware that pt. will be NPO except chips and sips. NSS infusing at 125 ml/hr to left AC vein. Denies pain at this time. NGT to left nare, will be hooked to low intermittent wall suction as ordered. Positive placement on auscultation. Repositions self in bed. Ambulates in room with 1 person assist. Encouraged to ring for assistance, call grier within reach.
[2017-10-18] MEDS ORDERED: DEXTROSE 50% 50 ML SYR IV PRN (00:15)
[2017-10-18] MEDS ORDERED: GLUCOSE 10 TABS/TUBE PO PRN (00:15)
[2017-10-18] MEDS ORDERED: GLUCOSE 40% GEL 15 GM TUBE PO PRN (00:15)
[2017-10-18] MEDS ORDERED: GLUCAGON FOR INJ 1 MG VIAL SQ PRN (00:15)
[2017-10-18] MEDS: INSULIN GLARGINE SOLOSTAR 100 UNITS/ML 3 ML PEN SC SCH ×3 (01:10→21:23)
--- NOTE | 2017-10-18 01:25 | EMERGENCY ROOM VISIT NOTE ---
History Report prepared by Amanda: Dee Dee Olsen Under the Supervision of: Dr. Emery Soto M.D. First contact with patient: 19:56 Chief Complaint: ABDOMINAL PAIN Stated Complaint: AB PAIN History of Present Illness The patient is a 66 year old female who presents to the Emergency Room with complaints of worsening abdominal pain starting four hours ago. The patient states that she had a bowel obstruction 4 years ago. She reports that it feels similar to her previous bowel obstruction and she feels bloated. She reports it started shortly after eating [place] dinner. She notes that she has only ever had one bowel obstruction and it did not require surgery because it passed in seven days. Her daughter states that the patient was pale and writhing in pain before the ambulance gave her medication. She rated her pain as a 10/10 in severity at its worst, but currently rates it as a 1/10 in severity. The patient states that what they gave her worked well. The patient complains of feeling like she needs to vomit, but can't because of her esophageal issues. She states that she has been dry heaving. The patient complains of being fatigued, back pain, and nausea. She notes that she has had two small bowel movements today that were loose and abnormal for her, but denies it being diarrhea. The patient reports that she is in remission from her pancreatic cancer because they removed her pancreas. The patient also notes that her bulge in her abdomen has been there since her main surgery, but usually isn't as hard and noticeable as it is today. Pt denies LOC, headache, fevers, chills, diaphoresis, visual changes, neck pain , chest pain, breathing difficulties, melena, hematochezia, urinary symptoms, numbness, weakness, lymphadenopathy, rash, or other complaints. Source of History: patient Onset: four hours ago Position: abdomen Symptom Intensity: 1/10 Quality: other (bloating, similar to previous bowel obstruction) Timing: worsening Associated Symptoms: + nausea, + back pain, + fatigue Review of Systems See HPI for pertinent positives and negatives. A total of ten systems were reviewed and were otherwise negative. Past Medical & Surgical Medical Problems: (1) DIAB EVA WO COMPL, TYPE II OR UNSPEC TYPE, NOT UNCNTRLD (2) HYPERTENSION NOS (3) IRON DEFIC ANEMIA NOS (4) MALIG JENNIFER PANCREAS NOS (5) OSTEOPOROSIS NOS (6) Small bowel obstruction Family History No pertinent family history Social History Smoking Status: Never Smoker Alcohol Use: none Drug Use: none Marital Status: Housing Status: lives with family Occupation Status: retired Current/Historical Medications Scheduled Ascorbic Acid (Vitamin C), 500 MG PO DAILY Aspirin (Aspirin Ec), 81 MG PO HS Biotin (Biotin), 5,000 MCG PO DAILY Calcium Carbonate-Vitamin D (Calcium + D3 600-200 mg-Unit), 2 TABS PO HS Ferrous Sulfate (Ferrous Sulfate), 65 MG PO DAILY Fish Oil ([place]-3), 1,000 MG PO BID Insulin Glargine (Lantus Solostar), 11 UNITS SC QAM Insulin Glargine (Lantus Solostar), 12 UNITS SC HS Insulin Lispro (Human) (Humalog Kwikpen), 1 DOSE SC TIDM Isosorbide Mononitrate Ext Rel (Imdur Ext Rel), 30 MG PO LUNCH Lisinopril (Lisinopril), 20 MG PO QAM Metformin Hcl Er (Glucophage Er), 1,000 MG PO BIDM Metoprolol Tartrate (Lopressor), 12.5 MG PO BID Multivitamins/Minerals (Mvi With Minerals), 1 TAB PO BID Pancrelipase (Lipase-Protease- (Creon), 3 CAP PO WM Pancrelipase (Lipase-Protease- (Creon), 2 CAP PO WITH SNACKS Pantoprazole (Pantoprazole Sodium), 40 MG PO QAM Rosuvastatin Calcium (Crestor), 20 MG PO HS Vitamin B Cmplx/Vitc/Folic Ac (Nephrocaps), 1 CAP PO NOON Zoledronic Acid (Zoledronic Acid), 5 MG INJ YEARLY Scheduled PRN Cyclosporine (Ophth) (Restasis), 1 DROP OP BID PRN for DRY EYES Allergies Coded Allergies: Oxycodone (Verified Allergy, Unknown, "BRAIN DOESN'T FUNCTION RIGHT", ) Amoxicillin (Verified Adverse Reaction, Unknown, YEAST INFECTIONS, ) Physical Exam Vital Signs Date Time Temp Pulse Resp B/P (MAP) Pulse Ox O2 Delivery O2 Flow Rate FiO2 10/17/17 23:08 95 16 120/86 91 Room Air 10/17/17 21:33 91 135/91 90 Room Air 10/17/17 20:48 43 10/17/17 20:43 88 10/17/17 20:22 85 22 139/84 93 Nasal Cannula 2.0 10/17/17 20:04 93 Nasal Cannula 2.0 10/17/17 20:04 93 Nasal Cannula 2.0 10/17/17 19:50 90 22 150/102 86 Room Air Physical Exam GENERAL: Awake, alert, well-appearing, in no distress HENT: Normocephalic, atraumatic. Oropharynx unremarkable. EYES: Normal conjunctiva. Sclera non-icteric. NECK: Supple. No nuchal rigidity. FROM. No JVD. RESPIRATORY: Clear to auscultation. CARDIAC: Regular rate, normal rhythm. Extremities warm and well perfused. Pulses equal. ABDOMEN: Soft, moderately distended. Diffusely tenderness to palpation. No rebound or guarding. No masses. Midline incisional hernia present. RECTAL: Deferred. MUSCULOSKELETAL: Chest examination reveals no tenderness. The back is symmetrical on inspection without obvious abnormality. There is left CVA tenderness to palpation. No joint edema. LOWER EXTREMITIES: Calves are equal size bilaterally and non-tender. No edema. No discoloration. NEURO: Normal sensorium. No sensory or motor deficits noted. SKIN: No rash or jaundice noted. Medical Decision & Procedures ER Provider Diagnostic Interpretation: Radiology results as stated below per my review and radiologist interpretation: ABD/PELVIS NO IV OR ORAL CONT CLINICAL HISTORY: 66 years-old Female presenting with acute abdominal pain. TECHNIQUE: Multidetector CT of the abdomen and pelvis was performed without the use of intravenous contrast. IV contrast: None. A dose lowering technique was used consistent with the principles of ALARA (as low as reasonably achievable). COMPARISON: 04/28/2017. CT DOSE (mGy.cm): The estimated cumulative dose is 303.91 mGy.cm. FINDINGS: Shoes Hand Sewer topogram: Massive gaseous distention of the stomach. Lung bases: Extensive basilar opacities, likely atelectasis. Solid 8 mm nodule in the right middle lobe (series 3 image 4). Normal heart size. Mild coronary artery calcification. No pericardial or pleural effusion. Liver: Normal morphology. Normal density. Biliary: Expected pneumobilia with a hepaticojejunostomy.. Gallbladder surgically absent. Pancreas: Severe parenchymal atrophy versus postsurgical changes of pancreatectomy. Spleen: Surgically absent. Adrenal glands: Normal. Kidneys and ureters: Left perinephric fat stranding, nonspecific. No hydronephrosis. No nephrolithiasis. Normal proximal ureters. Distal ureters poorly assessed. Bladder: Normal. Pelvic organs: Normal noncontrast appearance. Bowel: Diverticulosis of the sigmoid colon. Small bowel diffusely contains feces. There is significantly dilated small bowel, measuring over 4 cm in diameter. The blind-ending hepatobiliary limb is dilated. Dilated small bowel to the the level of the right lower quadrant at an anastomotic site or suture line, where there is a focal transition point (series 3 image 334). A gastrojejunostomy is noted. Massive dilation of the stomach. Postsurgical changes of distal gastrectomy. Peritoneal cavity: Trace free fluid in the pelvis. Lymph nodes: Suggestion of numerous small retroperitoneal lymph nodes resulting in a diffusely infiltrated appearance of the perivascular region. Vasculature: Atherosclerosis of the normal caliber abdominal aorta. Abdominal wall: Small amount of ascites in a ventral hernia. Additional ventral hernia contains dilated loop of small bowel. Musculoskeletal: Normal. IMPRESSION: 1. Findings consistent with complete small bowel obstruction in the right lower quadrant at the level of anastomosis or suture line. Resulting massive distention of the Jon limb as well as the hepatobiliary limb. 2. Postsurgical changes suggestive of Whipple procedure. 3. Suggestion of numerous small retroperitoneal lymph nodes, which raises concern for malignancy although these may be reactive. 4. Solid 8 mm nodule in the right middle lobe. This was not present on prior CT chest from 2011 and not included within the [id number] on prior abdominal pelvic CT. The report will be called/faxed according to standard departmental protocol. Electronically signed by: Boris Yousif M.D. 10/17/2017 8:56 PM Dictated Date/Time: 10/17/2017 8:42 PM Laboratory Results 10/17/17 19:30 Red Blood Count 4.41, Mean Corpuscular Volume 97.1, Mean Corpuscular Hemoglobin 31.7, Mean Corpuscular Hemoglobin Concent 32.7, Mean Platelet Volume 11.8, Neutrophils (%) (Auto) 70.9, Lymphocytes (%) (Auto) 20.6, Monocytes (%) (Auto) 6.8, Eosinophils (%) (Auto) 1.0, Basophils (%) (Auto) 0.3, Neutrophils # (Auto) 8.30, Lymphocytes # (Auto) 2.41, Monocytes # (Auto) 0.80, Eosinophils # (Auto) 0.12, Basophils # (Auto) 0.03 10/17/17 19:30 Test 10/17/17 19:30 10/17/17 20:56 White Blood Count 11.71 K/uL (4.8-10.8) Red Blood Count 4.41 M/uL (4.2-5.4) Hemoglobin 14.0 g/dL (12.0-16.0) Hematocrit 42.8 % (37-47) Mean Corpuscular Volume 97.1 fL (80-100) Mean Corpuscular Hemoglobin 31.7 pg (25-34) Mean Corpuscular Hemoglobin Concent 32.7 g/dl (32-36) Platelet Count 298 K/uL (130-400) Mean Platelet Volume 11.8 fL (7.4-10.4) Neutrophils (%) (Auto) 70.9 % Lymphocytes (%) (Auto) 20.6 % Monocytes (%) (Auto) 6.8 % Eosinophils (%) (Auto) 1.0 % Basophils (%) (Auto) 0.3 % Neutrophils # (Auto) 8.30 K/uL (1.4-6.5) Lymphocytes # (Auto) 2.41 K/uL (1.2-3.4) Monocytes # (Auto) 0.80 K/uL (0.11-0.59) Eosinophils # (Auto) 0.12 K/uL (0-0.5) Basophils # (Auto) 0.03 K/uL (0-0.2) RDW Standard Deviation 45.5 fL (36.4-46.3) RDW Coefficient of Variation 12.9 % (11.5-14.5) Immature Granulocyte % (Auto) 0.4 % Immature Granulocyte # (Auto) 0.05 K/uL (0.00-0.02) Anion Gap 8.0 mmol/L (3-11) Est Creatinine Clear Calc Drug Dose 40.3 ml/min Estimated GFR () 54.2 Estimated GFR (Non- 46.7 BUN/Creatinine Ratio 18.7 (10-20) Calcium Level 9.4 mg/dl (8.5-10.1) Total Bilirubin 0.6 mg/dl (0.2-1) Direct Bilirubin 0.2 mg/dl (0-0.2) Aspartate Amino Transf (AST/SGOT) 44 U/L (15-37) Alanine Aminotransferase (ALT/SGPT) 51 U/L (12-78) Alkaline Phosphatase 78 U/L (45-117) Troponin I < 0.015 ng/ml (0-0.045) Total Protein 7.3 gm/dl (6.4-8.2) Albumin 3.6 gm/dl (3.4-5.0) Lipase 30 U/L (73-393) Beta-Hydroxybutyric Acid 2.64 mg/dL (0.2-2.81) Urine Color YELLOW Urine Appearance CLEAR (CLEAR) Urine pH 5.0 (4.5-7.5) Urine Specific [place] 1.027 (1.000-1.030) Urine Protein NEG (NEG) Urine Glucose (UA) 3+ (NEG) Urine Ketones NEG (NEG) Urine Occult Blood NEG (NEG) Urine Nitrite POS (NEG) Urine Bilirubin NEG (NEG) Urine Urobilinogen NEG (NEG) Urine Leukocyte Esterase NEG (NEG) Urine WBC (Auto) 1-5 /hpf (0-5) Urine RBC (Auto) 0-4 /hpf (0-4) Urine Hyaline Casts (Auto) 0 /lpf (0-5) Urine Epithelial Cells (Auto) 10-20 /lpf (0-5) Urine Bacteria (Auto) 4+ (NEG) Laboratory results reviewed by me Medications Administered Medications (Trade) Dose Ordered Sig/Tacos Route Start Time Stop Time Status Last Admin Dose Admin Sodium Chloride 1,000 ml @ 125 mls/hr Q8H STAT IV 10/17/17 19:59 10/18/17 00:04 DC 10/17/17 19:59 125 MLS/HR Sodium Chloride 500 ml @ 999 mls/hr Q31M STAT IV 10/17/17 19:59 10/17/17 20:29 DC 10/17/17 19:59 999 MLS/HR Fentanyl Citrate (Fentanyl Inj) 50 mcg Q20M PRN IV 10/17/17 20:00 10/18/17 00:04 DC 10/17/17 20:16 50 MCG Insulin Human Regular (novoLIN-R U-100 PER UNIT) 6 units NOW STAT IV 10/17/17 20:55 10/17/17 20:57 DC 10/17/17 21:45 6 UNITS Sodium Chloride 500 ml @ 999 mls/hr Q31M STAT IV 10/17/17 20:55 10/17/17 21:25 DC 10/17/17 21:39 999 MLS/HR Procedure NG tube placement: The patient had a nasogastric tube placed by me in the left naris. This was confirmed by auscultation. Significant stomach contents and air aspirated. Patient felt significantly better afterwards. No, medications. ECG Indication: abdominal pain Rate (beats per minute): 86 Rhythm: normal sinus Findings: T-wave inversion (Inferior), no ectopy Comparison ECG Date: June 29, 2016 Change: Inferior T-wave inversions have replaced the nonspecific-ST abnormality. ED Course 1956: The patient was evaluated in room C4. A complete history and physical exam was performed. 1958: Ordered Zofran Inj 4 mg IV, NSS 500 ml @ 999 mls/hr IV, NSS 1000 ml @ 125 mls/hr IV. 1999: Ordered Fentanyl Inj 50 mcg PRN IV Pain. 2010: I reevaluated the patient and she is doing okay. 2031: I reevaluated the patient and she is doing well. 2054: Ordered NSS 500 ml @ 999 mls/hr IV, Insulin Human Regular 6 units IV. 2110: Discussed the patient's case with Dr. Joseph- Dominique. They will come see the patient and asked for internal medicine to admit. 2209: Discussed the patient's case with Dr. Hinkle. The patient will be evaluated for further treatment and disposition. Medical Decision Triage Nursing notes reviewed. The patient's presentation and history were concerning for abdominal pain and prior bowel obstruction. Etiologies such as obstruction, appendicitis, diverticulitis, inflammatory bowel disease, renal colic, PUD, biliary pathology, pancreatitis, mesenteric ischemia, aortic pathology, infections, genitourinary, UTI, perforated viscus, as well as others were entertained. The patient was evaluated. She was doing somewhat better from the medication received prehospital. Her abdomen is very distended. This is concerning for obstruction. The patient blood work obtained. She was given IV hydration. She received IV Zofran. She was sent to CT imaging. She has had significant distention of her stomach and bowel consistent with small bowel obstruction. I did place an NG tube and this relieved a significant amount of discomfort for the patient. Consultation was made with general surgery as well as internal medicine. The patient was also given a dose of IV insulin for hyperglycemia. Patient and family were informed of the issues. The patient was evaluated in the Emergency Room for further management. Medication Reconcilliation Current Medication List: was personally reviewed by me Blood Pressure Screening Patient's blood pressure: Normal blood pressure Will be further monitored by hospitalist. Consults Time Called: 2105 Consulting Physician: Dr. Joseph- Dominique Returned Call: 2110 Discussed the patient's case with Dr. Joseph- Dominique. They will come see the patient and asked for internal medicine to admit. Additional Consults: Time Called: 2204 Consulted Physician: Dr. Hinkle- Hospitalist Returned Call: 2209 Additional Comments: Discussed the patient's case with Dr. Hinkle. The patient will be evaluated for further treatment and disposition. Impression Primary Impression: Small bowel obstruction Scribe Attestation The scribe's documentation has been prepared under my direction and personally reviewed by me in its entirety. I confirm that the note above accurately reflects all work, treatment, procedures, and medical decision making performed by me. Departure Information Dispostion Being Evaluated By Hospitalist Referrals Collin Yee M.D. (PCP) Patient Instructions [facility]
[2017-10-18] MEDS ORDERED: NURSING VERBAL MED ORDER ONE ×3 (03:45→21:00)
[2017-10-18] MEDS: METRONIDAZOLE / NSS 500 MG in PREMIXED NSS 100 ML IV SCH ×3 (03:47→19:47)
[2017-10-18] MEDS ORDERED: INSULIN HUMAN REGULAR PER UNIT 6 UNITS in SYRINGE 5.94 ML IV SCH (04:00)
[2017-10-18] MEDS ORDERED: INSULIN ASPART 100 UNITS/ML 3 ML PEN SC SCH ×2 (04:00→08:00)
[2017-10-18] MEDS: SODIUM CHLORIDE 0.9% 1000ML 1,000 ML IV SCH ×3 (04:07→19:47)
[2017-10-18] MEDS ORDERED: FAMOTIDINE IV INJ 20 MG in DEXTROSE 5% 100ML 100 ML IV SCH (06:00)
[2017-10-18] MEDS ORDERED: NITROGLYCERIN OINT 2% 1GM PACKET EXT SCH (06:00)
[2017-10-18] MEDS: INSULIN ASPART 100 UNITS/ML 3 ML PEN SC SCH ×4 (06:00→21:22)
[2017-10-18 06:20] LABS: CALCIUM 8.6 mg/dl (8.5-10.1); CREATININE 0.95 mg/dl (0.60-1.20); POTASSIUM 3.7 mmol/L (3.5-5.1)
[2017-10-18] MEDS: FAMOTIDINE IV INJ 20 MG in SYRINGE 3 ML IV SCH ×2 (06:34→18:16)
[2017-10-18] MEDS ORDERED: INSULIN ASPART 100 UNITS/ML 3 ML PEN SC STA (07:03)
--- NOTE | 2017-10-18 07:42 | Surgery Progress Note ---
Surgery Progress Note Date of Service Oct 18, 2017. Subjective + feeling well, + flatus, + pain controlled, No complaints, No nausea, No vomiting Objective Vital Signs: Date Time Temp Pulse Resp B/P (MAP) Pulse Ox O2 Delivery O2 Flow Rate FiO2 10/18/17 07:02 37.3 96 16 143/77 (99) 92 Room Air 10/18/17 06:41 95 138/71 (93) 10/18/17 00:00 36.5 92 18 151/76 (101) 91 Room Air 10/18/17 00:00 93 Nasal Cannula 2.0 10/17/17 23:57 36.5 91 16 151/76 91 Room Air 10/17/17 23:08 95 16 120/86 91 Room Air 10/17/17 21:33 91 135/91 90 Room Air 10/17/17 20:48 43 10/17/17 20:43 88 10/17/17 20:22 85 22 139/84 93 Nasal Cannula 2.0 10/17/17 20:04 93 Nasal Cannula 2.0 10/17/17 20:04 93 Nasal Cannula 2.0 10/17/17 19:50 90 22 150/102 86 Room Air Physical Exam: nasogastric drainage (40 mL) General Appearance: WD/WN, no apparent distress Head: normocephalic, atraumatic Abdomen: non tender, + distended, + pertinent finding Laboratory Results: Results Past 24 Hours Test 10/17/17 19:30 10/17/17 20:56 10/18/17 00:33 10/18/17 03:11 Range/Units White Blood Count 11.71 4.8-10.8 K/uL Red Blood Count 4.41 4.2-5.4 M/uL Hemoglobin 14.0 12.0-16.0 g/dL Hematocrit 42.8 37-47 % Mean Corpuscular Volume 97.1 80-100 fL Mean Corpuscular Hemoglobin 31.7 25-34 pg Mean Corpuscular Hemoglobin Concent 32.7 32-36 g/dl Platelet Count 298 130-400 K/uL Mean Platelet Volume 11.8 7.4-10.4 fL Neutrophils (%) (Auto) 70.9 % Lymphocytes (%) (Auto) 20.6 % Monocytes (%) (Auto) 6.8 % Eosinophils (%) (Auto) 1.0 % Basophils (%) (Auto) 0.3 % Neutrophils # (Auto) 8.30 1.4-6.5 K/uL Lymphocytes # (Auto) 2.41 1.2-3.4 K/uL Monocytes # (Auto) 0.80 0.11-0.59 K/uL Eosinophils # (Auto) 0.12 0-0.5 K/uL Basophils # (Auto) 0.03 0-0.2 K/uL RDW Standard Deviation 45.5 36.4-46.3 fL RDW Coefficient of Variation 12.9 11.5-14.5 % Immature Granulocyte % (Auto) 0.4 % Immature Granulocyte # (Auto) 0.05 0.00-0.02 K/uL Sodium Level 134 136-145 mmol/L Potassium Level 5.4 3.5-5.1 mmol/L Chloride Level 98 98-107 mmol/L Carbon Dioxide Level 28 21-32 mmol/L Anion Gap 8.0 3-11 mmol/L Blood Urea Nitrogen 22 7-18 mg/dl Creatinine 1.20 0.60-1.20 mg/dl Est Creatinine Clear Calc Drug Dose 40.3 ml/min Estimated GFR () 54.2 Estimated GFR (Non- 46.7 BUN/Creatinine Ratio 18.7 10-20 Random Glucose 541 70-99 mg/dl Calcium Level 9.4 8.5-10.1 mg/dl Total Bilirubin 0.6 0.2-1 mg/dl Direct Bilirubin 0.2 0-0.2 mg/dl Aspartate Amino Transf (AST/SGOT) 44 15-37 U/L Alanine Aminotransferase (ALT/SGPT) 51 12-78 U/L Alkaline Phosphatase 78 45-117 U/L Troponin I < 0.015 0-0.045 ng/ml Total Protein 7.3 6.4-8.2 gm/dl Albumin 3.6 3.4-5.0 gm/dl Lipase 30 73-393 U/L Beta-Hydroxybutyric Acid 2.64 0.2-2.81 mg/dL Urine Color YELLOW Urine Appearance CLEAR CLEAR Urine pH 5.0 4.5-7.5 Urine Specific [place] 1.027 1.000-1.030 Urine Protein NEG NEG Urine Glucose (UA) 3+ NEG Urine Ketones NEG NEG Urine Occult Blood NEG NEG Urine Nitrite POS NEG Urine Bilirubin NEG NEG Urine Urobilinogen NEG NEG Urine Leukocyte Esterase NEG NEG Urine WBC (Auto) 1-5 0-5 /hpf Urine RBC (Auto) 0-4 0-4 /hpf Urine Hyaline Casts (Auto) 0 0-5 /lpf Urine Epithelial Cells (Auto) 10-20 0-5 /lpf Urine Bacteria (Auto) 4+ NEG Bedside Glucose 399 399 70-90 mg/dl Test 10/18/17 05:08 10/18/17 05:10 10/18/17 06:37 10/18/17 07:04 Range/Units Bedside Glucose 315 246 70-90 mg/dl Prothrombin Time 10.7 9.0-12.0 SECONDS Prothromb Time International Ratio 1.0 0.9-1.1 Sodium Level 137 136-145 mmol/L Potassium Level 3.7 3.5-5.1 mmol/L Chloride Level 104 98-107 mmol/L Carbon Dioxide Level 23 21-32 mmol/L Anion Gap 10.0 3-11 mmol/L Blood Urea Nitrogen 25 7-18 mg/dl Creatinine 0.95 0.60-1.20 mg/dl Est Creatinine Clear Calc Drug Dose 50.9 ml/min Estimated GFR () 71.8 Estimated GFR (Non- 62.0 BUN/Creatinine Ratio 26.2 10-20 Random Glucose 311 70-99 mg/dl Calcium Level 8.6 8.5-10.1 mg/dl Beta-Hydroxybutyric Acid 2.28 0.2-2.81 mg/dL Lactic Acid Level 3.0 0.4-2.0 mmol/L Microbiology Results 10/17/17 Urine Culture, Received Pending Assessment & Plan 10/18/2017- Complete Small Bowel Obstruction Patient resting comfortably in bed- no new concerns or complaints overnight. NG tube to remain in place for now. Reports abdominal pain is nearly gone. +Flatus Will continue sips and chips until NG tube is removed. 10/17/2017-Complete small bowel obstruction per CT abd/pelvis in ED Findings discussed with Dr. Joseph Due to her extensive surgical history and significant improvement with NG tube placement we will opt for conservative management at this time. If symptoms persist or worsen we may consider surgical management at that time - No surgical intervention necessary at this time. NPO, IV Fluids, bowel rest. NG tube in place, pain controlled without any pain medication - recommend IV dilaudid PRN for pain if necessary Admission per hospitalist service. Findings and plan discussed with patient and her family - all questions were answered. Surgery will continue to follow during her hospital stay. Please contact with any questions or concerns.
[2017-10-18] MEDS ORDERED: INSULIN HUMAN REGULAR SC SCH (08:00)
[2017-10-18] MEDS ORDERED: OMEGA-3 (PURIFIED FISH OIL) 1 GM CAP PO SCH (09:00)
[2017-10-18] MEDS ORDERED: PANTOprazole SOD 40 MG TAB PO SCH (09:00)
[2017-10-18] MEDS ORDERED: NEPHROCAPS PO SCH (09:00)
[2017-10-18] MEDS ORDERED: LISINOPRIL 20 MG TAB PO SCH (09:00)
[2017-10-18] MEDS ORDERED: CEROVITE ADV FORMULA TAB PO SCH (09:00)
[2017-10-18] MEDS ORDERED: ISOSORBIDE MONONITRATE 30 MG TABCR PO SCH (09:00)
[2017-10-18] MEDS: CIPROFLOXACIN / D5W 400 MG in PREMIXED IN D5W 200 ML IV SCH ×2 (09:16→21:12)
[2017-10-18] MEDS: METOPROLOL TARTRATE 25 MG TAB PO SCH ×2 (09:17→21:27)
[2017-10-18 10:05] LABS: HEMOGLOBIN A1C 8.5 % (4.5-5.6)
[2017-10-18] MEDS: NITROGLYCERIN 2% OINTMENT 30GM TUBE EXT SCH ×2 (11:53→18:15)
[2017-10-18] MEDS ORDERED: KETOROLAC TROMETHAMINE 30 MG/ML VIAL IV STA (17:05)
--- NOTE | 2017-10-18 18:33 | Family Medicine Progress Note ---
Progress Note Date of Service Oct 18, 2017. Subjective Pt evaluation today including: conversation w/ patient, physical exam, chart review, lab review, review of studies Pain: patient reports no abdominal pain PO Intake: NPO, NGT in situ Voiding: no voiding problems Patient reports she is feeling drastically better since last night. She states she has no abdominal pain, has started to pass flatus, and had only minimal "gagging" nausea which she believes is related to the NGT and not her illness. Constitutional: No fever, No chills, No sweats, No weight loss, No weakness , No fatigue, No problem reported Respiratory: No cough, No sputum, No wheezing, No shortness of breath Cardiovascular: No chest pain, No orthopnea, No PND, No edema, No claudication, No palpitations, No problem reported Abdomen: + nausea (related to NGT), No see HPI, No pain, No vomiting, No diarrhea, No constipation, No GI bleeding Female : No see HPI, No dysuria, No urinary frequency, No hematuria Neurologic: No memory loss, No paralysis, No weakness, No numbness/tingling , No vertigo, No balance problems, No problem reported All Other Systems: Reviewed and Negative Medications Current Inpatient Medications Medications (Trade) Dose Ordered Sig/Tacos Route Start Time Stop Time Status Last Admin Dose Admin Ondansetron HCl (Zofran Inj) 4 mg Q6H PRN IV 10/17/17 22:45 11/16/17 22:44 Insulin Glargine (Lantus Solostar Pen) 11 units QAM SC 10/18/17 09:00 11/17/17 08:59 10/18/17 09:20 11 UNITS Insulin Glargine (Lantus Solostar Pen) 12 units HS SC 10/18/17 21:00 11/17/17 20:59 10/18/17 01:10 12 UNITS Metoprolol Tartrate (Lopressor Tab) 12.5 mg BID PO 10/18/17 09:00 11/17/17 08:59 10/18/17 09:17 12.5 MG Glucose (Glucose 40% Gel) 15-30 GRAMS 15 GRAMS... UD PRN PO 10/18/17 00:15 11/17/17 00:14 Glucose (Glucose Chew Tab) 4-8 Tablets 4 Tabl... UD PRN PO 10/18/17 00:15 11/17/17 00:14 Dextrose (Dextrose 50% 50ML Syringe) 25-50ML OF 50% DW IV FOR... UD PRN IV 10/18/17 00:15 11/17/17 00:14 Glucagon (Glucagon Inj) 1 mg UD PRN SQ 10/18/17 00:15 11/17/17 00:14 Ciprofloxacin/ Dextrose 400 mg/ Prmx 200 ml @ 100 mls/hr Q12 IV 10/18/17 09:00 10/28/17 08:59 10/18/17 09:16 100 MLS/HR Metronidazole 500 mg/Prmx 100 ml @ 100 mls/hr Q8H IV 10/18/17 04:00 10/28/17 03:59 10/18/17 11:54 100 MLS/HR Insulin Aspart (novoLOG ASPART) SLIDING SCALE G... Q6 SC 10/18/17 06:00 11/17/17 05:59 10/18/17 06:00 2 UNITS Sodium Chloride 1,000 ml @ 125 mls/hr Q8H IV 10/18/17 04:00 11/17/17 03:59 10/18/17 16:57 125 MLS/HR Famotidine 20 mg/ Syringe 5 ml @ 2.5 mls/min Q12H IV 10/18/17 06:00 11/17/17 05:59 10/18/17 06:34 2.5 MLS/MIN Nitroglycerin (Nitroglycerin 2% Oint) 1 inch Q6H EXT 10/18/17 12:00 11/17/17 05:59 10/18/17 11:53 1 INCH Objective Vital Signs Date Time Temp Pulse Resp B/P (MAP) Pulse Ox O2 Delivery O2 Flow Rate FiO2 10/18/17 15:49 Room Air 10/18/17 15:00 36.6 80 20 149/97 (114) 94 Room Air 10/18/17 11:39 74 16 161/87 (111) 94 Room Air 10/18/17 07:35 Room Air 10/18/17 07:02 37.3 96 16 143/77 (99) 92 Room Air 10/18/17 06:41 95 138/71 (93) 10/18/17 00:00 36.5 92 18 151/76 (101) 91 Room Air 10/18/17 00:00 93 Nasal Cannula 2.0 10/17/17 23:57 36.5 91 16 151/76 91 Room Air 10/17/17 23:08 95 16 120/86 91 Room Air 10/17/17 21:33 91 135/91 90 Room Air 10/17/17 20:48 43 10/17/17 20:43 88 10/17/17 20:22 85 22 139/84 93 Nasal Cannula 2.0 10/17/17 20:04 93 Nasal Cannula 2.0 10/17/17 20:04 93 Nasal Cannula 2.0 10/17/17 19:50 90 22 150/102 86 Room Air Physical Exam General Appearance: WD/WN, no apparent distress Eyes: normal inspection, PERRL, EOMI, sclerae normal ENT: normal ENT inspection, hearing grossly normal, TMs normal, pharynx normal Neck: supple, no adenopathy, no JVD, trachea midline Respiratory/Chest: chest non-tender, lungs clear, normal breath sounds, no respiratory distress, no accessory muscle use Cardiovascular: regular rate, rhythm, no edema, no gallop, no JVD, no murmur Abdomen: normal bowel sounds, non tender, soft Extremities: normal range of motion, non-tender, normal inspection, no pedal edema Neurologic/Psychiatric: 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-XII nml as tested, no motor/sensory deficits, alert, normal mood/affect, oriented x 3 Skin: normal color, warm/dry, no rash Laboratory Results 10/17/17 19:30 Red Blood Count 4.41, Mean Corpuscular Volume 97.1, Mean Corpuscular Hemoglobin 31.7, Mean Corpuscular Hemoglobin Concent 32.7, Mean Platelet Volume 11.8, Neutrophils (%) (Auto) 70.9, Lymphocytes (%) (Auto) 20.6, Monocytes (%) (Auto) 6.8, Eosinophils (%) (Auto) 1.0, Basophils (%) (Auto) 0.3, Neutrophils # (Auto) 8.30, Lymphocytes # (Auto) 2.41, Monocytes # (Auto) 0.80, Eosinophils # (Auto) 0.12, Basophils # (Auto) 0.03 10/18/17 05:10 Test 10/17/17 19:30 10/17/17 20:56 10/18/17 05:10 10/18/17 08:30 White Blood Count 11.71 K/uL (4.8-10.8) Red Blood Count 4.41 M/uL (4.2-5.4) Hemoglobin 14.0 g/dL (12.0-16.0) Hematocrit 42.8 % (37-47) Mean Corpuscular Volume 97.1 fL (80-100) Mean Corpuscular Hemoglobin 31.7 pg (25-34) Mean Corpuscular Hemoglobin Concent 32.7 g/dl (32-36) Platelet Count 298 K/uL (130-400) Mean Platelet Volume 11.8 fL (7.4-10.4) Neutrophils (%) (Auto) 70.9 % Lymphocytes (%) (Auto) 20.6 % Monocytes (%) (Auto) 6.8 % Eosinophils (%) (Auto) 1.0 % Basophils (%) (Auto) 0.3 % Neutrophils # (Auto) 8.30 K/uL (1.4-6.5) Lymphocytes # (Auto) 2.41 K/uL (1.2-3.4) Monocytes # (Auto) 0.80 K/uL (0.11-0.59) Eosinophils # (Auto) 0.12 K/uL (0-0.5) Basophils # (Auto) 0.03 K/uL (0-0.2) RDW Standard Deviation 45.5 fL (36.4-46.3) RDW Coefficient of Variation 12.9 % (11.5-14.5) Immature Granulocyte % (Auto) 0.4 % Immature Granulocyte # (Auto) 0.05 K/uL (0.00-0.02) Total Bilirubin 0.6 mg/dl (0.2-1) Direct Bilirubin 0.2 mg/dl (0-0.2) Aspartate Amino Transf (AST/SGOT) 44 U/L (15-37) Alanine Aminotransferase (ALT/SGPT) 51 U/L (12-78) Alkaline Phosphatase 78 U/L (45-117) Troponin I < 0.015 ng/ml (0-0.045) Total Protein 7.3 gm/dl (6.4-8.2) Albumin 3.6 gm/dl (3.4-5.0) Lipase 30 U/L (73-393) Urine Color YELLOW Urine Appearance CLEAR (CLEAR) Urine pH 5.0 (4.5-7.5) Urine Specific [place] 1.027 (1.000-1.030) Urine Protein NEG (NEG) Urine Glucose (UA) 3+ (NEG) Urine Ketones NEG (NEG) Urine Occult Blood NEG (NEG) Urine Nitrite POS (NEG) Urine Bilirubin NEG (NEG) Urine Urobilinogen NEG (NEG) Urine Leukocyte Esterase NEG (NEG) Urine WBC (Auto) 1-5 /hpf (0-5) Urine RBC (Auto) 0-4 /hpf (0-4) Urine Hyaline Casts (Auto) 0 /lpf (0-5) Urine Epithelial Cells (Auto) 10-20 /lpf (0-5) Urine Bacteria (Auto) 4+ (NEG) Prothrombin Time 10.7 SECONDS (9.0-12.0) Prothromb Time International Ratio 1.0 (0.9-1.1) Anion Gap 10.0 mmol/L (3-11) Est Creatinine Clear Calc Drug Dose 50.9 ml/min Estimated GFR () 71.8 Estimated GFR (Non- 62.0 BUN/Creatinine Ratio 26.2 (10-20) Calcium Level 8.6 mg/dl (8.5-10.1) Beta-Hydroxybutyric Acid 2.28 mg/dL (0.2-2.81) Hepatitis C Antibody Screen NEG (NEG) Estimated Average Glucose 197 mg/dl Hemoglobin A1c 8.5 % (4.5-5.6) Lactic Acid Level 2.0 mmol/L (0.4-2.0) Test 10/18/17 11:57 Bedside Glucose 144 mg/dl (70-90) Assessment and Plan 66 y/o F presenting with abdominal pain 2/2 complete SBO. PMH significant for Pancreatic cancer s/p whipple/natan fundoplication with resultant IDDM. Small bowel obstruction, complete Evidenced on Abdominal CT Surgery has evaluated the patient and recommends conservative management given extensive history; appreciate recommendations NPO, Bowel rest, IVF, Cipro, Flagyl NG decompression started: Patient tolerating well and is passing flatus without pain or significant nausea. Will stop NG suction overnight with possible NGT removal tomorrow AM Advance diet as tolerated starting with clear liquids 6 hours after closing NG suction Will reassess tomorrow AM, or if symptoms return overnight will restart suction Maintain sips and chips until diet advanced or if patient regresses Lactic acid originally 3.0; repeat of 2.0 today CBC and BMP grossly normal, repeat tomorrow AM Hyperglycemia, IDDM ISS in place along with home med dosages: glucose levels have responded well Accu-checks recheck BMP am Hold metformin while inpatient HbA1c of 8.5--will discuss outpatient diabetes management with patient tomorrow AM Incidental finding of pulmonary nodule on CT abdo/pelvis 8mm pulmonary nodule seen on CTAP, new since last chest CT of 2011 Also noted retroperitoneal lymphadenopathy, which could be malignant or reactive Discussed with Dr. Yousif, radiology. In light of her PMH of pancreatic Ca and no scan since 2011, as well as LAD, this should be monitored more closely than standard incidental pulm nodule Will discuss with patient tomorrow AM. She may choose to have Chest CT while in hospital. Otherwise repeat scan as outpatient in next 2-4 weeks. Headache Given 30 mg IV toradol CAD / HTN Hold Aspirin, Crestor, Imdur, Lisinopril while NPO DVT proph: Lovenox Code: Full Dispo: Med/surg, NGT hopefully out tomorrow Resident Physician Supervision Note: I interviewed and examined the patient. Discussed with Dr. Long and agree with findings and plan as documented in the note. Any exceptions or clarifications are listed here: None Documented By: Marty Brooks feeling much better already, had some flatus this AM vitals noted nad breathing unlabored NGT wtihout [place], abd soft nd nt no masses SBO - almost certainly adhesional - improving. as above abdominal adenopathy/other findings on CT - GI f/u as outpt as long as she shows ongoign improvement Resident Tracking Resident Involvement: Resident Care Provided Care Provided: Adult Hospital Medicine
--- NOTE | 2017-10-18 20:20 | NUR ---
A: Pt is tolerating clear liquids and off NG wall suction. Denies nausea or any symptoms.
[2017-10-18] MEDS ORDERED: ASPIRIN 81 MG ECTAB PO SCH (21:00)
[2017-10-18] MEDS ORDERED: ROSUVASTATIN CALCIUM 20 MG TAB PO SCH (21:00)
[2017-10-19] VITALS (10 sets, daily range): BP systolic 114–169; BP diastolic 53–90; PULSE 53–79; TEMP 36.6–37; O2SAT 91–97; Ht 157.5 cm; Wt 65.2 kg
--- NOTE | 2017-10-19 | NUR ---
ID: Pt. alert and oriented x 4. VSS. Tolerating clear liquid diet. NSS infusing at 125 ml/hr to left AC vein. Denies pain at this time. NGT to left nare, clamped as ordered. Positive placement on auscultation. Denies nausea or vomiting. Repositions in bed and ambulates to the bathroom independently. Discharge plan to home when stable.
--- NOTE | 2017-10-19 | NUR ---
ID/A: Pt. arrived in room #377-2 at about 0000. Alert and oriented x 4. VSS. Made aware that pt. will be NPO except chips and sips. NSS infusing at 125 ml/hr to left AC vein. Denies pain at this time. NGT to left nare, will be hooked to low intermittent wall suction as ordered. Positive placement on auscultation. Repositions self in bed. Ambulates in room with 1 person assist. Encouraged to ring for assistance, call grier within reach. Addendum: 10/19/17 at 0147 by Keturah Banegas RN error with date
[2017-10-19] MEDS: NITROGLYCERIN 2% OINTMENT 30GM TUBE EXT SCH ×2 (00:28→06:12)
[2017-10-19] MEDS: SODIUM CHLORIDE 0.9% 1000ML 1,000 ML IV SCH ×3 (03:14→20:54)
[2017-10-19] MEDS: METRONIDAZOLE / NSS 500 MG in PREMIXED NSS 100 ML IV SCH (04:45)
[2017-10-19] MEDS: FAMOTIDINE IV INJ 20 MG in SYRINGE 3 ML IV SCH ×2 (06:12→18:53)
[2017-10-19 06:45] LABS: HEMATOCRIT 37.4 % (37-47); HEMOGLOBIN 12.6 g/dL (12.0-16.0); MEAN CELL VOLUME 93.5 fL (80-100); MEAN CORPUSCULAR HEMOGLOBIN 31.5 pg (25-34); MEAN CORPUSCULAR HGB CONC 33.7 g/dl (32-36); PLATELET COUNT 282 K/uL (130-400); RED CELL DISTRIBUTION WIDTH CV 12.8 % (11.5-14.5); RED CELL DISTRIBUTION WIDTH SD 43.8 fL (36.4-46.3); WHITE BLOOD COUNT 9.14 K/uL (4.8-10.8)
[2017-10-19 07:15] LABS: CREATININE 0.55 mg/dl (0.60-1.20); POTASSIUM 2.9 mmol/L (3.5-5.1)
--- NOTE | 2017-10-19 07:30 | NUR ---
A note: Pt. BSG on the lab draw was 58. Checked with floor BSG machine and she is 57. Pt. verbalizes she felt like she was a little low, but not having severe symptoms. Apple juice given and will recheck BSG per protocol. Call grier within reach.
--- NOTE | 2017-10-19 08:26 | NUR ---
CALLED DIAB EDUCATOR, LINDA CONDE FOR CONSULT.
[2017-10-19] MEDS: INSULIN ASPART 100 UNITS/ML 3 ML PEN SC SCH ×4 (08:53→20:53)
[2017-10-19] MEDS: METOPROLOL TARTRATE 25 MG TAB PO SCH ×2 (08:54→22:20)
[2017-10-19] MEDS: CIPROFLOXACIN / D5W 400 MG in PREMIXED IN D5W 200 ML IV SCH ×2 (08:54→20:54)
[2017-10-19] MEDS: INSULIN GLARGINE SOLOSTAR 100 UNITS/ML 3 ML PEN SC SCH (08:55)
--- NOTE | 2017-10-19 09:41 | Surgery Progress Note ---
Surgery Progress Note Date of Service Oct 19, 2017. Subjective 66-year-old female with history of open Alissa fundoplication, Whipple procedure , and hysterectomy, admitted with small bowel obstruction. NG tube was clamped yesterday, she is still feeling well with no nausea. She did pass some gas yesterday, but has not passed gas or had a bowel movement over the past 12 hours. The pain and bloating that was present upon arrival is much improved. Objective Vital Signs: Date Time Temp Pulse Resp B/P (MAP) Pulse Ox O2 Delivery O2 Flow Rate FiO2 10/19/17 07:20 Room Air 10/19/17 06:50 36.6 71 16 140/86 (104) 94 Room Air 10/19/17 06:11 66 139/82 (101) 93 Room Air 10/19/17 00:12 60 139/83 (101) 94 Room Air 10/19/17 00:00 Room Air 10/18/17 22:43 37.1 71 16 142/83 (102) 92 Room Air 10/18/17 21:20 71 129/83 (98) 10/18/17 15:49 Room Air 10/18/17 15:00 36.6 80 20 149/97 (114) 94 Room Air 10/18/17 11:39 74 16 161/87 (111) 94 Room Air General Appearance: no apparent distress Abdomen: non tender, soft, + distended (mild distention, improved from yesterday), + hernia (reducible incisional hernia, not the source of her obstruction) Laboratory Results: Results Past 24 Hours Test 10/18/17 11:57 10/18/17 17:59 10/18/17 20:40 10/19/17 06:22 Range/Units Bedside Glucose 144 89 248 70-90 mg/dl White Blood Count 9.14 4.8-10.8 K/uL Red Blood Count 4.00 4.2-5.4 M/uL Hemoglobin 12.6 12.0-16.0 g/dL Hematocrit 37.4 37-47 % Mean Corpuscular Volume 93.5 80-100 fL Mean Corpuscular Hemoglobin 31.5 25-34 pg Mean Corpuscular Hemoglobin Concent 33.7 32-36 g/dl RDW Standard Deviation 43.8 36.4-46.3 fL RDW Coefficient of Variation 12.8 11.5-14.5 % Platelet Count 282 130-400 K/uL Mean Platelet Volume 11.0 7.4-10.4 fL Sodium Level 140 136-145 mmol/L Potassium Level 2.9 3.5-5.1 mmol/L Chloride Level 106 98-107 mmol/L Carbon Dioxide Level 28 21-32 mmol/L Anion Gap 6.0 3-11 mmol/L Blood Urea Nitrogen 13 7-18 mg/dl Creatinine 0.55 0.60-1.20 mg/dl Est Creatinine Clear Calc Drug Dose 88.0 ml/min Estimated GFR () 112.5 Estimated GFR (Non- 97.1 BUN/Creatinine Ratio 24.5 10-20 Random Glucose 58 70-99 mg/dl Calcium Level 8.0 8.5-10.1 mg/dl Test 10/19/17 07:24 10/19/17 07:48 Range/Units Bedside Glucose 57 75 70-90 mg/dl Assessment & Plan 66-year-old female with complicated surgical history admitted with small bowel obstruction, currently undergoing nonoperative management. She has passed minimal flatus over the past 24 hours, but is tolerated clamping of her NG tube. Continue nonoperative management I recommend that she keep the NG tube in at this time but leave it clamped, as it was very difficult to place in the emergency department Surgery will follow, call with questions or concerns Plan of care as discussed the patient, she expressed understanding and agreed with the plan of care as stated
--- NOTE | 2017-10-19 14:31 | NUR ---
DIABETES: Pt seen on consult for DM education- no comments noted. See DM network & DM teaching interventions. Addendum: 10/19/17 at 1432 by Yanet Arrington RN Amended: Links added.
--- NOTE | 2017-10-19 16:09 | Family Medicine Progress Note ---
Progress Note Date of Service Oct 19, 2017. Subjective Pt evaluation today including: conversation w/ patient, physical exam, chart review, lab review, review of inpatient medication list Pain: patient reporting pain along lower anterior margin of ribcage PO Intake: clear liquids Voiding: no voiding problems Patient reports no abdominal pain but pain along lower anterior margin of ribcage. She passed flatus last evening but has not since then. She states she will consume at mealtimes but is not overtly hungry. She is concerned about having NG tube pulled. She has been tolerating liquid diets and reports no nausea. Constitutional: No fever, No chills, No sweats, No weight loss, No weakness , No fatigue, No problem reported Respiratory: No cough, No sputum, No wheezing, No shortness of breath, No dyspnea on exertion, No dyspnea at rest, No hemoptysis, No problem reported Cardiovascular: No chest pain, No orthopnea, No PND, No edema, No claudication, No palpitations, No problem reported Abdomen: No pain, No nausea, No vomiting, No diarrhea, No constipation, No GI bleeding Musculoskeletal: + problem reported (pain on anterior margin of lower ribcage) All Other Systems: Reviewed and Negative Medications Current Inpatient Medications Medications (Trade) Dose Ordered Sig/Tacos Route Start Time Stop Time Status Last Admin Dose Admin Ondansetron HCl (Zofran Inj) 4 mg Q6H PRN IV 10/17/17 22:45 11/16/17 22:44 Insulin Glargine (Lantus Solostar Pen) 11 units QAM SC 10/18/17 09:00 11/17/17 08:59 10/18/17 09:20 11 UNITS Insulin Glargine (Lantus Solostar Pen) 12 units HS SC 10/18/17 21:00 11/17/17 20:59 10/18/17 21:23 12 UNITS Metoprolol Tartrate (Lopressor Tab) 12.5 mg BID PO 10/18/17 09:00 11/17/17 08:59 10/19/17 08:54 12.5 MG Glucose (Glucose 40% Gel) 15-30 GRAMS 15 GRAMS... UD PRN PO 10/18/17 00:15 11/17/17 00:14 Glucose (Glucose Chew Tab) 4-8 Tablets 4 Tabl... UD PRN PO 10/18/17 00:15 11/17/17 00:14 Dextrose (Dextrose 50% 50ML Syringe) 25-50ML OF 50% DW IV FOR... UD PRN IV 10/18/17 00:15 11/17/17 00:14 Glucagon (Glucagon Inj) 1 mg UD PRN SQ 10/18/17 00:15 11/17/17 00:14 Ciprofloxacin/ Dextrose 400 mg/ Prmx 200 ml @ 100 mls/hr Q12 IV 10/18/17 09:00 10/28/17 08:59 10/19/17 08:54 100 MLS/HR Sodium Chloride 1,000 ml @ 125 mls/hr Q8H IV 10/18/17 04:00 11/17/17 03:59 10/19/17 14:57 125 MLS/HR Famotidine 20 mg/ Syringe 5 ml @ 2.5 mls/min Q12H IV 10/18/17 06:00 11/17/17 05:59 10/19/17 06:12 2.5 MLS/MIN Insulin Aspart (novoLOG ASPART) SLIDING SCALE G... ACHS SC 10/18/17 21:09 11/17/17 21:08 10/19/17 12:31 1 UNITS Aspirin (Ecotrin Tab) 81 mg QAM PO 10/20/17 09:00 11/19/17 08:59 Rosuvastatin Calcium (Crestor Tab) 20 mg QAM PO 10/20/17 09:00 11/19/17 08:59 Isosorbide Mononitrate (Imdur Ext Rel Tab) 30 mg QAM PO 10/20/17 09:00 11/19/17 08:59 Objective Vital Signs Date Time Temp Pulse Resp B/P (MAP) Pulse Ox O2 Delivery O2 Flow Rate FiO2 10/19/17 13:46 79 16 125/69 (87) 93 Room Air 10/19/17 13:46 79 16 118/53 (74) 94 Room Air 10/19/17 13:45 79 16 114/66 (82) 91 Room Air 10/19/17 07:20 Room Air 10/19/17 06:50 36.6 71 16 140/86 (104) 94 Room Air 10/19/17 06:11 66 139/82 (101) 93 Room Air 10/19/17 00:12 60 139/83 (101) 94 Room Air 10/19/17 00:00 Room Air 10/18/17 22:43 37.1 71 16 142/83 (102) 92 Room Air 10/18/17 21:20 71 129/83 (98) Physical Exam General Appearance: WD/WN, no apparent distress, + pertinent finding (NGT in situ) Eyes: normal inspection, PERRL, EOMI, sclerae normal ENT: hearing grossly normal, pharynx normal Neck: supple, no adenopathy Respiratory/Chest: chest non-tender, lungs clear, normal breath sounds, no respiratory distress, no accessory muscle use Cardiovascular: regular rate, rhythm, no edema, no gallop, no JVD, no murmur Abdomen: normal bowel sounds (hypoactive bowel sounds, not high-pitched; all 4 quadrants), non tender, soft, no organomegaly Extremities: normal range of motion, non-tender, normal inspection, no pedal edema, no calf tenderness Neurologic/Psychiatric: 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, no motor/sensory deficits, alert, normal mood/affect, oriented x 3 Skin: normal color, warm/dry, no rash Laboratory Results 10/19/17 06:22 10/19/17 06:22 Test 10/19/17 06:22 10/19/17 12:03 Red Blood Count 4.00 M/uL (4.2-5.4) Mean Corpuscular Volume 93.5 fL (80-100) Mean Corpuscular Hemoglobin 31.5 pg (25-34) Mean Corpuscular Hemoglobin Concent 33.7 g/dl (32-36) RDW Standard Deviation 43.8 fL (36.4-46.3) RDW Coefficient of Variation 12.8 % (11.5-14.5) Mean Platelet Volume 11.0 fL (7.4-10.4) Anion Gap 6.0 mmol/L (3-11) Est Creatinine Clear Calc Drug Dose 88.0 ml/min Estimated GFR () 112.5 Estimated GFR (Non- 97.1 BUN/Creatinine Ratio 24.5 (10-20) Calcium Level 8.0 mg/dl (8.5-10.1) Bedside Glucose 172 mg/dl (70-90) Assessment and Plan 66 y/o F presenting with abdominal pain 2/2 complete SBO. PMH significant for Pancreatic cancer s/p whipple/natan fundoplication with resultant IDDM. Patient responded well with bowel rest, IVF, NGT; lactic acid has returned to normal Small bowel obstruction, complete, evidenced on Abdo CT Surgery has evaluated the patient and recommends conservative management given extensive history; appreciate recommendations Flagyl DCd today NG decompression: Patient tolerated well and is passing flatus without pain or nausea. 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 Evening lantus decreased to 7 units from 12 units, due to hypoglycemia this AM Hypokalemia 2.9 today, supplemented with 40 K+ PO; recheck tomorrow Incidental finding of pulmonary nodule on CT abdo/pelvis 8mm pulmonary nodule seen on CTAP, new since last chest CT of 2011 Also noted retroperitoneal lymphadenopathy, which could be malignant or reactive Discussed with Dr. Yousif, radiology. In light of her PMH of pancreatic Ca and no scan since 2011, as well as LAD, this should be monitored more closely than standard incidental pulm nodule Patient opts and is amenable to have Chest CT as outpatient in next 2-4 weeks. UTI, growth of klebsiella On cipro 400 BID day 2 CAD / HTN Aspirin 81, Crestor 20, Imdur 30, Lisinopril 20, lopressor 12.5 restarted with oral intake DVT proph: Lovenox Code: Full Dispo: Med/surg Resident Physician Supervision Note: I interviewed and examined the patient. Discussed with Dr. Long and agree with findings and plan as documented in the note. Any exceptions or clarifications are listed here: None Documented By: Marty Brooks feeling better pain improved no nausea, NGT clamped since last night abd soft nd nt no guarding no rebound. hypoactive bowel sounds SBO - improvign. ongoing supportive care. outpt workup in regards to lung nodule, adenopathy, distention beyond SBO, etc. she is aware and comfortable w outpt eval for this. Resident Tracking Resident Involvement: Resident Care Provided Care Provided: [facility] Medicine
[2017-10-19] MEDS ORDERED: POTASSIUM CHLORIDE 10 MEQ TABCR PO ONE (17:15)
[2017-10-19] MEDS ORDERED: NURSING VERBAL MED ORDER SCH (17:15)
[2017-10-19] MEDS ORDERED: INSULIN GLARGINE SOLOSTAR 100 UNITS/ML 3 ML PEN SC SCH (21:00)
--- NOTE | 2017-10-20 00:06 | NUR ---
ID: A&Ox4. VSS. Denies pain at this time. IVF infusing per MD order. Ambulates independently to BR with 1 assist. Hypoactive bowel sounds and occ flatus. Plan home when stable. Will continue to monitor.
[2017-10-20] MEDS: SODIUM CHLORIDE 0.9% 1000ML 1,000 ML IV SCH ×2 (03:41→12:53)
[2017-10-20] MEDS: FAMOTIDINE IV INJ 20 MG in SYRINGE 3 ML IV SCH (05:35)
[2017-10-20 06:19] LABS: BASO % 0.5 %; BASO ABS # 0.04 K/uL (0-0.2); EOS % 1.9 %; EOS ABS # 0.16 K/uL (0-0.5); HEMOGLOBIN 13.4 g/dL (12.0-16.0); IG# 0.02 K/uL (0.00-0.02); LYMPH % 28.4 %; LYMPH ABS # 2.35 K/uL (1.2-3.4); MEAN CELL VOLUME 93.2 fL (80-100); MEAN CORPUSCULAR HEMOGLOBIN 31.2 pg (25-34); MEAN CORPUSCULAR HGB CONC 33.5 g/dl (32-36); MEAN PLATELET VOLUME 11.4 fL (7.4-10.4); MONO % 15.3 %; MONO ABS # 1.27 K/uL (0.11-0.59); NEUT % 53.7 %; NEUT ABS # 4.44 K/uL (1.4-6.5); PLATELET COUNT 289 K/uL (130-400); RED CELL DISTRIBUTION WIDTH SD 43.7 fL (36.4-46.3); WHITE BLOOD COUNT 8.28 K/uL (4.8-10.8)
[2017-10-20 06:53] LABS: CALCIUM 8.3 mg/dl (8.5-10.1); CREATININE 0.49 mg/dl (0.60-1.20); POTASSIUM 3.4 mmol/L (3.5-5.1)
[2017-10-20 07:40] VITALS: BP 146/72; PULSE 62; TEMP 37.1; O2SAT 95
[2017-10-20] MEDS ORDERED: PANCREAZE (LIPASE 16,800U) CAP PO PRN (07:45)
[2017-10-20] MEDS ORDERED: POTASSIUM CHLORIDE 20 MEQ TABCR PO STA (07:48)
[2017-10-20] MEDS: INSULIN ASPART 100 UNITS/ML 3 ML PEN SC SCH ×2 (08:00→12:50)
[2017-10-20] MEDS: INSULIN GLARGINE SOLOSTAR 100 UNITS/ML 3 ML PEN SC SCH (08:37)
[2017-10-20] MEDS: METOPROLOL TARTRATE 25 MG TAB PO SCH (08:40)
[2017-10-20] MEDS: CIPROFLOXACIN / D5W 400 MG in PREMIXED IN D5W 200 ML IV SCH (08:44)
[2017-10-20] MEDS: PANCREAZE (LIPASE 16,800U) CAP PO SCH ×2 (08:54→12:46)
[2017-10-20] MEDS ORDERED: ROSUVASTATIN CALCIUM 5 MG TAB PO SCH (09:00)
[2017-10-20] MEDS ORDERED: PANTOprazole SOD 40 MG TAB PO SCH (09:00)
[2017-10-20] MEDS ORDERED: ASPIRIN 81 MG ECTAB PO SCH (09:00)
[2017-10-20] MEDS ORDERED: ISOSORBIDE MONONITRATE 30 MG TABCR PO SCH (09:00)
[2017-10-20] MEDS ORDERED: LISINOPRIL 20 MG TAB PO SCH (09:00)
--- NOTE | 2017-10-20 10:55 | Surgery Progress Note ---
Surgery Progress Note Date of Service Oct 20, 2017. Subjective 66-year-old female with history of Alissa fundoplication, Whipple procedure, and hysterectomy, admitted with partial small bowel obstruction. NG tube was removed yesterday and she tolerated clear liquids. She had a bowel movement overnight. Her distention and abdominal pain is gone. She would like to try regular diet and hopefully go home today or tomorrow. Objective Vital Signs: Date Time Temp Pulse Resp B/P (MAP) Pulse Ox O2 Delivery O2 Flow Rate FiO2 10/20/17 07:40 37.1 62 16 146/72 (96) 95 Room Air 10/20/17 07:15 Room Air 10/19/17 23:20 36.9 62 14 153/89 (110) 97 Room Air 10/19/17 23:15 Room Air 10/19/17 22:17 64 169/90 (116) 10/19/17 20:52 56 10/19/17 20:49 56 161/83 (109) 10/19/17 16:00 Room Air 10/19/17 15:00 37.0 53 18 158/84 (108) 94 Room Air 10/19/17 13:46 79 16 125/69 (87) 93 Room Air 10/19/17 13:46 79 16 118/53 (74) 94 Room Air 10/19/17 13:45 79 16 114/66 (82) 91 Room Air General Appearance: WD/WN, no apparent distress Abdomen: normal bowel sounds, non tender, non distended, soft, + hernia ( reducible incisional hernia) Laboratory Results: Results Past 24 Hours Test 10/19/17 12:03 10/19/17 17:15 10/19/17 20:47 10/20/17 05:58 Range/Units Bedside Glucose 172 131 142 70-90 mg/dl White Blood Count 8.28 4.8-10.8 K/uL Red Blood Count 4.29 4.2-5.4 M/uL Hemoglobin 13.4 12.0-16.0 g/dL Hematocrit 40.0 37-47 % Mean Corpuscular Volume 93.2 80-100 fL Mean Corpuscular Hemoglobin 31.2 25-34 pg Mean Corpuscular Hemoglobin Concent 33.5 32-36 g/dl Platelet Count 289 130-400 K/uL Mean Platelet Volume 11.4 7.4-10.4 fL Neutrophils (%) (Auto) 53.7 % Lymphocytes (%) (Auto) 28.4 % Monocytes (%) (Auto) 15.3 % Eosinophils (%) (Auto) 1.9 % Basophils (%) (Auto) 0.5 % Neutrophils # (Auto) 4.44 1.4-6.5 K/uL Lymphocytes # (Auto) 2.35 1.2-3.4 K/uL Monocytes # (Auto) 1.27 0.11-0.59 K/uL Eosinophils # (Auto) 0.16 0-0.5 K/uL Basophils # (Auto) 0.04 0-0.2 K/uL RDW Standard Deviation 43.7 36.4-46.3 fL RDW Coefficient of Variation 13.0 11.5-14.5 % Immature Granulocyte % (Auto) 0.2 % Immature Granulocyte # (Auto) 0.02 0.00-0.02 K/uL Sodium Level 141 136-145 mmol/L Potassium Level 3.4 3.5-5.1 mmol/L Chloride Level 108 98-107 mmol/L Carbon Dioxide Level 27 21-32 mmol/L Anion Gap 6.0 3-11 mmol/L Blood Urea Nitrogen 7 7-18 mg/dl Creatinine 0.49 0.60-1.20 mg/dl Est Creatinine Clear Calc Drug Dose 98.8 ml/min Estimated GFR () 116.8 Estimated GFR (Non- 100.8 BUN/Creatinine Ratio 15.2 10-20 Random Glucose 64 70-99 mg/dl Calcium Level 8.3 8.5-10.1 mg/dl Test 10/20/17 08:00 Range/Units Bedside Glucose 134 70-90 mg/dl Assessment & Plan 66-year-old female with complicated surgical history admitted with small bowel obstruction, which appears to have resolved. Advance diet as tolerated Discharge today or tomorrow if tolerating a regular diet Return precautions given Surgery will follow, call with questions or concerns Plan of care as discussed the patient, she expressed understanding and agreed with the plan of care as stated
[2017-10-20 11:45] VITALS: BP 177/86; PULSE 60; O2SAT 94
--- NOTE | 2017-10-20 14:59 | NUR ---
chrome [facility]: I arrange a follow up appt w/ Dr. Yee on October 27 at 1:50 pm. I added this info to the DC instructions.
[2017-10-20] MEDS ORDERED: CIPROFLOXACIN 500 MG TAB PO STA (15:30)
--- NOTE | 2017-10-20 15:59 | Discharge Instructions ---
Discharge Instructions Date of Service Oct 20, 2017. Admission Reason for Admission: Small Bowel Obstruction Discharge Discharge Diagnosis / Problem: Small Bowel Obstruction Discharge Goals Goal(s): Decrease discomfort, Improve function, Improve disease control, Improve nutritional status Activity Recommendations Activity Limitations: per Instructions/Follow-up section . Instructions / Follow-Up Instructions / Follow-Up During this admission you were treated for an obstruction of your small bowel. Continue to increase your diet with solid foods as you are able. Small meals throughout the day would be better than a few large meals. As you are aware, this condition may return at any time. If you begin to feel symptoms similar to those prior to admission, please return to the ED. During your stay you were found to have a low potassium level. This is likely related to your lack of diet during the first few days. We supplemented you with potassium tablets during your stay. You will be given a hand-written prescription to have a repeat blood check of this level in one week. Your primary care doctor will monitor this and supplement as needed. Your primary care doctor will be made aware of the incidental finding of the pulmonary nodule seen on your CT scan. As discussed, we recommend a repeat chest CT in about 1 month after you leave. Your PCP will be able to set this up for you. Also, your hemoglobin A1c was found to be 8.5%. As discussed, this indicates poor control and is likely related to the stress you've been experiencing in the last few months. Please follow up with your primary care doctor to ensure that your diabetes control improves in the next 3 months. You were also treated for a urinary tract infection during this visit, and we completed the full course of antibiotics while you were in the hospital. If you remain symptomatic, please discuss with your PCP at your follow up visit. Resume and continue all of your home medications as before. Follow up with your PCP within the next 1 week to discuss this visit. Current Hospital Diet Patient's current hospital diet: Diabetes Type 2 Diet Discharge Diet Recommended Diet: Diabetes Type 2 Diet Pending Studies Studies pending at discharge: no Laboratory Results Hemoglobin A1c Test 10/18/17 08:30 Range/Units Estimated Average Glucose 197 mg/dl Hemoglobin A1c 8.5 H 4.5-5.6 % Medical Emergencies . Who to Call and When: Medical Emergencies: If at any time you feel your situation is an emergency, please call 911 immediately. . Non-Emergent Contact Non-Emergency issues call your: Primary Care Provider . . "Provider Documentation" section prepared by Rosa Long. . VTE Core Measure Inpt VTE Proph given/why not?: SCD's
[2017-10-20 16:10] VITALS: BP 124/71; PULSE 56; TEMP 36.8; O2SAT 96
[2017-10-20 16:16] VITALS: BP 146/72; PULSE 62; TEMP 37.1; O2SAT 95
[2017-10-20] MEDS ORDERED: CIPROFLOXACIN 500 MG TAB PO SCH (21:00)
--- NOTE | 2017-10-20 23:07 | Discharge Summary ---
Discharge Summary Date of Service Oct 20, 2017. Discharge Summary Admission Date: Oct 17, 2017 at 23:16 Discharge Date: Oct 20, 2017 Discharge Disposition: Home Principal Diagnosis: Complete small bowel obstruction Problems/Secondary Diagnoses: hypokalemia, IDDM, klebsiella UTI Immunizations: Have You Had Influenza Vaccine: N/A History of Tetanus Vaccine?: YES - UNKNOWN DATE History of Pneumococcal: Yes History of Hepatitis B Vaccine: YES - UNKNOWN DATE Medication Reconciliation Continued Medications: Ascorbic Acid (Vitamin C) 500 Mg Tab 500 MG PO DAILY Aspirin (Aspirin Ec) 81 Mg Tab 81 MG PO HS Biotin (Biotin) 5,000 Mcg Cap 5000 MCG PO DAILY Calcium Carbonate-Vitamin D (Calcium + D3 600-200 mg-Unit) 1 Tab Tab 2 TABS PO HS Cyclosporine (Ophth) (Restasis) 0.05 % Emu 1 DROP OP BID PRN for DRY EYES Ferrous Sulfate (Ferrous Sulfate) 27 Mg Tab 65 MG PO DAILY Fish Oil (Colo-3) 1 Ea Cap 1000 MG PO BID Insulin Glargine (Lantus Solostar) 100 Unit/Ml Inj 11 UNITS SC QAM Insulin Glargine (Lantus Solostar) 100 Unit/Ml Inj 12 UNITS SC HS Insulin Lispro (Human) (Humalog Kwikpen) 100 Unit/Ml Inj 1 DOSE SC TIDM ADMINISTER 1 UNIT FOR EVERY 5 CARBS TAKEN PLUS SLIDING SCALE Isosorbide Mononitrate Ext Rel (Imdur Ext Rel) 30 Mg Tabcr 30 MG PO LUNCH Lisinopril (Lisinopril) 20 Mg Tab 20 MG PO QAM Metformin Hcl Er (Glucophage Er) 500 Mg Tab 1000 MG PO BIDM Metoprolol Tartrate (Lopressor) 25 Mg Tab 12.5 MG PO BID Multivitamins/Minerals (Mvi With Minerals) Tab 1 TAB PO BID Pancrelipase (Lipase-Protease- (Creon) 1 Cap Cap 3 CAP PO WM Pancrelipase (Lipase-Protease- (Creon) 1 Cap Cap 2 CAP PO WITH SNACKS Pantoprazole (Pantoprazole Sodium) 40 Mg Tab 40 MG PO QAM Rosuvastatin Calcium (Crestor) 20 Mg Tab 20 MG PO HS Vitamin B Cmplx/Vitc/Folic Ac (Nephrocaps) Cap 1 CAP PO NOON Zoledronic Acid (Zoledronic Acid) 5 Mg/100 Ml Inj 5 MG INJ YEARLY Discharge Exam ROS Constitutional: No fever, No chills, No sweats, No weight loss, No weakness, No fatigue, No problem reported Respiratory: No cough, No sputum, No wheezing, No shortness of breath, No dyspnea on exertion, No dyspnea at rest, No hemoptysis, No problem reported Cardiovascular: No chest pain, No orthopnea, No PND, No edema, No claudication, No palpitations, No problem reported Abdomen: No pain, No nausea, No vomiting, No diarrhea, No constipation, No GI bleeding Musculoskeletal: + problem reported (pain on anterior margin of lower ribcage) All Other Systems: Reviewed and Negative PE General Appearance: WD/WN, no apparent distress Eyes: normal inspection, PERRL, EOMI, sclerae normal ENT: hearing grossly normal, pharynx normal Neck: supple, no adenopathy Respiratory/Chest: chest non-tender, lungs clear, normal breath sounds, no respiratory distress, no accessory muscle use Cardiovascular: regular rate, rhythm, no edema, no gallop, no JVD, no murmur Abdomen: normal bowel sounds (hypoactive bowel sounds, not high-pitched; all 4 quadrants), non tender, soft, no organomegaly Extremities: normal range of motion, non-tender, normal inspection, no pedal edema, no calf tenderness Neurologic/Psychiatric: 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 PMH significant for Pancreatic cancer s/p whipple/natan fundoplication with resultant IDDM. Patient responded well with bowel rest, IVF, NGT. Patient slowly restarted solid foods and had bowel motion within 2 days. Incidental finding of pulmonary nodule found on CT. Diabetes management was discussed and should be monitored as outpatient. Small bowel obstruction, complete, evidenced on Abdo CT Surgery evaluated the patient and recommended conservative management given extensive abdominal surgical history NG decompression: Patient tolerated well and is passing flatus without pain or nausea. NGT removed and diet was advanced. Hyperglycemia, IDDM ISS in place along with home med dosages while in house Held metformin while inpatient HbA1c of 8.5--will need outpatient diabetes management art educator consulted. Hypokalemia K+=2.9 supplemented with 40 K+ PO Should be rechecked as outpatient in one week; patient given handwritten script for this. Incidental finding of pulmonary nodule on CT abdo/pelvis 8mm pulmonary nodule seen on CTAP, new since last chest CT of 2011 Also noted retroperitoneal lymphadenopathy, which could be malignant or reactive Discussed with Dr. Yousif, radiology. In light of her PMH of pancreatic Ca and no scan since 2011, as well as LAD, this should be monitored more closely than standard incidental pulm nodule Patient opts and is amenable to having Chest CT as outpatient in next 2-4 weeks. UTI, growth of klebsiella Treated with Cipro as inpatient, course completed in house CAD / HTN Aspirin 81, Crestor 20, Imdur 30, Lisinopril 20, lopressor 12.5 restarted with oral intake Resident Physician Supervision Note: I interviewed and examined the patient. Discussed with Dr. Long and agree with findings and plan as documented in the note. Any exceptions or clarifications are listed here: None Documented By: Marty Brooks feeling better eating well had a BM vitals noted nad breathing unlabored no pallor or icterus SBO - adhesional - resolved lung nodule and abdominal adenopathy as well as GI distention that appears not directly related to SBO - she is comfortable w outpt f/u for this via PCP. anticipate clinical f/u and repeat CT chest/abdomen/pelvis in ~4wks as next steps stable for home Total Time Spent: Less than 30 minutes This includes examination of the patient, discharge planning, medication reconciliation, and communication with other providers. Discharge Instructions Please refer to the electronic Patient Visit Report (Discharge Instructions) for additional information. Additional Copies To Collin Yee M.D. Resident Tracking Resident Involvement: Resident Care Provided Care Provided: Adult [facility]
== END 2017-10-20 16:48 | disposition home or self-care (01) | DRG 389 ==
LOC: EDBD 19:50 → C.EDC 19:51 → C.MSN 23:16 → EDBEDREQ 23:19 → ENRESERV 23:24
PROVIDERS: ADMIT Hospitalist; ATTEND Family Medicine
DX: K56.601 Complete intestinal obstruction, unspecified as to cause (principal); N39.0 Urinary tract infection, site not specified; E11.65 Type 2 diabetes mellitus with hyperglycemia; I10 Essential (primary) hypertension; B96.1 Klebsiella pneumoniae [K. pneumoniae] as the cause of diseases classified elsewhere; E87.6 Hypokalemia; I25.10 Atherosclerotic heart disease of native coronary artery without angina pectoris; Z79.4 Long term (current) use of insulin; Z79.82 Long term (current) use of aspirin; Z79.84 Long term (current) use of oral hypoglycemic drugs; Z79.899 Other long term (current) drug therapy

== ENCOUNTER → 2017-10-25 | Outpatient (CLI) | payer BC, OTHER ==
[~2017-10-25] MED LIST changes: -FERR1TAB24 PO; +FERR83TA2 PO; -INSDGI SC; +INSDGIPEN SC; -INSUINJ4 SC
[2017-10-25 17:19] LABS: BASO % 0.2 %; BASO ABS # 0.02 K/uL (0-0.2); EOS % 1.8 %; EOS ABS # 0.16 K/uL (0-0.5); HEMATOCRIT 40.9 % (37-47); HEMOGLOBIN 13.3 g/dL (12.0-16.0); IG# 0.02 K/uL (0.00-0.02); LYMPH ABS # 2.62 K/uL (1.2-3.4); MEAN CELL VOLUME 97.6 fL (80-100); MEAN CORPUSCULAR HEMOGLOBIN 31.7 pg (25-34); MEAN CORPUSCULAR HGB CONC 32.5 g/dl (32-36); MONO % 9.5 %; MONO ABS # 0.83 K/uL (0.11-0.59); NEUT % 58.3 %; NEUT ABS # 5.09 K/uL (1.4-6.5); PLATELET COUNT 349 K/uL (130-400); RED CELL DISTRIBUTION WIDTH CV 13.4 % (11.5-14.5); RED CELL DISTRIBUTION WIDTH SD 47.5 fL (36.4-46.3); WHITE BLOOD COUNT 8.74 K/uL (4.8-10.8)
[2017-10-25 18:08] LABS: ALBUMIN 3.6 gm/dl (3.4-5.0); ALKALINE PHOSPHATASE 105 U/L (45-117); ALT/SGPT 96 U/L (12-78); AST/SGOT 40 U/L (15-37); BLOOD UREA NITROGEN 20 mg/dl (7-18); CALCIUM 8.7 mg/dl (8.5-10.1); CARBON DIOXIDE 30 mmol/L (21-32); CREATININE 0.78 mg/dl (0.60-1.20); GLUCOSE 159 mg/dl (70-99); POTASSIUM 4.2 mmol/L (3.5-5.1); SODIUM 135 mmol/L (136-145); TOTAL PROTEIN 7.2 gm/dl (6.4-8.2)
[2017-10-25 19:34] LABS: CREATININE RANDOM URINE 53.6 mg/dl
[2017-10-26 06:01] LABS: HEMOGLOBIN A1C 8.5 % (4.5-5.6)
== END | disposition home or self-care (01) ==
LOC: C.LABBFT 11:29
PROVIDERS: ATTEND Student in an Organized Health Care Education/Training Program
DX: E87.6 Hypokalemia (principal); E78.00 Pure hypercholesterolemia, unspecified; E10.65 Type 1 diabetes mellitus with hyperglycemia; E55.9 Vitamin D deficiency, unspecified

== ENCOUNTER → 2017-11-14 | Outpatient (CLI) | payer BC ==
[~2017-11-14] MED LIST changes: +B-CO1CAP17 PO; -B-COCAP2 PO; -LISI-726 PO; +LSN20 PO
--- NOTE | 2017-11-15 14:39 | MAMMOGRAPHY REPORT ---
BILATERAL DIGITAL SCREENING MAMMOGRAM TOMOSYNTHESIS WITH CAD: 11/14/2017 CLINICAL HISTORY: Routine screening. Patient has no complaints. TECHNIQUE: Breast tomosynthesis in addition to standard 2D mammography was performed. Current study was also evaluated with a Computer Aided Detection (CAD) system. COMPARISON: Comparison is made to exams dated: 11/11/2016 mammogram, 11/04/2014 mammogram, 10/31/2013 ma mmogram, 10/30/2012 mammogram, 09/28/2010 mammogram, and 09/22/2009 mammogram - [facility]ter. BREAST COMPOSITION: The tissue of both breasts is heterogeneously dense, which may obscure small mas ses. FINDINGS: No suspicious mass, architectural distortion or cluster of microcalcifications is seen. IMPRESSION: ACR BI-RADS CATEGORY 1: NEGATIVE There is no mammographic evidence of malignancy. A 1 year screening mammogram is recommended. The pa tient will receive written notification of the results. Approximately 10% of breast cancers are not detected with mammography. A negative mammographic report should not delay biopsy if a clinically suggestive mass is present. Robyn sterling/jarrod:11/14/2017 17:28:19 Grape Pruner: Dione RAPHAEL(Mindy)(Patricia), [facility] letter sent: Normal 1/2 BI-RADS Code: ACR BI-RADS Category 1: Negative
== END | disposition home or self-care (01) ==
LOC: C.MAMM 13:15
PROVIDERS: ATTEND Internal Medicine
DX: Z12.31 Encounter for screening mammogram for malignant neoplasm of breast (principal)

== ENCOUNTER → 2017-12-13 | Outpatient (CLI) | payer BC ==
[2017-12-13 17:43] LABS: ALBUMIN 3.8 gm/dl (3.4-5.0); ALT/SGPT 56 U/L (12-78); BLOOD UREA NITROGEN 18 mg/dl (7-18); CALCIUM 9.5 mg/dl (8.5-10.1); CARBON DIOXIDE 31 mmol/L (21-32); CREATININE 0.87 mg/dl (0.60-1.20); GLUCOSE 217 mg/dl (70-99); POTASSIUM 4.3 mmol/L (3.5-5.1); SODIUM 137 mmol/L (136-145)
[2017-12-13 17:46] LABS: ALKALINE PHOSPHATASE 63 U/L (45-117); AST/SGOT 43 U/L (15-37); TOTAL PROTEIN 6.9 gm/dl (6.4-8.2)
== END | disposition home or self-care (01) ==
LOC: C.LABBFT 11:44
PROVIDERS: ATTEND Internal Medicine
DX: R74.0 Nonspecific elevation of levels of transaminase and lactic acid dehydrogenase [LDH] (principal)

== ENCOUNTER → 2017-12-21 | Outpatient (CLI) | payer BC ==
--- NOTE | 2017-12-21 10:21 | DIAGNOSTIC IMAGING REPORT ---
GI W/AIR SMALL BOWEL ROUTINE CLINICAL HISTORY: R10.9 Abdominal pain of multiple [id number] pain COMPARISON STUDY: None FLUOROSCOPY TIME: 4.7 minutes. FINDINGS: Patient initiated the swallowing function well. The esophagus is normal in course and caliber. There are operative changes involving the stomach and duodenal sweep consistent with a prior Whipple procedure. There is good contrast flow to the small bowel. No evidence for obstruction or extravasation The small bowel is normal in course and caliber. Mucosal pattern is unremarkable. Spot films of the terminal ileum are within normal limits. IMPRESSION: Normal study post Whipple procedure. The above report was generated using voice recognition software. It may contain grammatical, syntax or spelling errors. Electronically signed by: Bennie Waldrop M.D. 12/21/2017 10:20 AM Dictated Date/Time: 12/21/2017 10:19 AM
== END | disposition home or self-care (01) ==
LOC: C.RAD 07:59
PROVIDERS: ATTEND Internal Medicine
DX: R10.9 Unspecified abdominal pain (principal)

== ENCOUNTER → 2018-02-10 | Outpatient (CLI) | payer BC | END | disposition home or self-care (01) | LOC: C.LABSPEC 16:02 | PROVIDERS: ATTEND Obstetrics & Gynecology | DX: N89.8 Other specified noninflammatory disorders of vagina (principal) ==

== ENCOUNTER → 2018-02-10 | Outpatient (CLI) | payer BC | END | disposition home or self-care (01) | LOC: C.PAPS 16:57 | PROVIDERS: ATTEND Obstetrics & Gynecology | DX: Z01.419 Encounter for gynecological examination (general) (routine) without abnormal findings (principal); Z11.51 Encounter for screening for human papillomavirus (HPV) ==

== ENCOUNTER → 2018-05-17 | Outpatient (CLI) | payer BC ==
[~2018-05-17] MED LIST changes: +LISI-726 PO; -LSN20 PO
[2018-05-17 18:27] LABS: ALBUMIN 3.5 gm/dl (3.4-5.0)
== END | disposition home or self-care (01) ==
LOC: C.LAB1850 16:10
PROVIDERS: ATTEND Internal Medicine
DX: M81.0 Age-related osteoporosis without current pathological fracture (principal)

== ENCOUNTER → 2018-05-22 | Day surgery (SDC) | payer BC ==
[~2018-05-22] VITALS: Ht 157.5 cm; Wt 61.0 kg
[~2018-05-22] MED LIST changes: +ZOLEDRONIC ACID INJ 5 MG in EMPTY BAG 0 ML IV SCH
[2018-05-22 10:32] VITALS: BP 127/78; PULSE 59; TEMP 36.6; O2SAT 92; Ht 157.5 cm; Wt 61.0 kg
== END | disposition home or self-care (01) ==
LOC: C.MTU 10:21
PROVIDERS: ATTEND Internal Medicine
DX: M81.0 Age-related osteoporosis without current pathological fracture (principal); Z88.1 Allergy status to other antibiotic agents; Z88.5 Allergy status to narcotic agent

== ENCOUNTER 2019-07-13 20:19 | Observation (INO) ==
[2019-07-13] MEDS ORDERED: ACETAMINOPHEN 1,000 MG/100 ML VIAL IV STA (21:11)
[2019-07-13] MEDS ORDERED: KETOROLAC TROMETHAMINE 15 MG/ML VIAL IV STA (21:11)
[2019-07-13 21:14] LABS: Basophils # (auto) 0.02 K/uL (0-0.2); Basophils % (auto) 0.2 %; Eosinophils # (auto) 0.06 K/uL (0-0.5); Eosinophils % (auto) 0.6 %; Hematocrit (blood only) 36.7 % (37-47); Hemoglobin 12.1 g/dL (12.0-16.0); Immature Granulocytes # (auto) 0.05 K/uL (0.00-0.02); Immature Granulocytes % (auto) 0.5 %; Lymphocytes # (auto) 2.11 K/uL (1.2-3.4); Lymphocytes % (auto) 20.9 %; Mean Corpuscular Hemoglobin 31.4 pg (25-34); Mean Corpuscular Volume 95.3 fL (80-100); Mean Platelet Volume 11.2 fL (7.4-10.4); Monocytes # (auto) 0.82 K/uL (0.11-0.59); Monocytes % (auto) 8.1 %; Neutrophils # (auto) 7.05 K/uL (1.4-6.5); Neutrophils % (auto) 69.7 %; Platelet Count 316 K/uL (130-400); RDW Standard Deviation 44.7 fL (36.4-46.3); Red Blood Count 3.85 M/uL (4.2-5.4); White Blood Count 10.11 K/uL (4.8-10.8)
[2019-07-13 21:26] LABS: Partial Thromboplastin Ratio 0.8; Partial Thromboplastin Time 22.2 Seconds (21.0-31.0); Prothrombin Time 10.5 Seconds (9.0-12.0)
[2019-07-13 21:29] LABS: BUN Creatinine Ratio 29.9 (10-20); Calcium 9.1 mg/dl (8.5-10.1); Creatinine Clr Calc Pharmacy 48.3 ml/min; Est GFR (African American) 78.8; Potassium 4.8 mmol/L (3.5-5.1)
--- NOTE | 2019-07-13 21:40 | XRay Report ---
XR hip LT 2V w pelvis CLINICAL HISTORY: 68 years-old Female presenting with left hip pain. TECHNIQUE: Single frontal view of the pelvis and frontal and frog-leg lateral views of the left hip w ere obtained. COMPARISON: Comparison made to CT of the abdomen and pelvis from 10/17/2017. FINDINGS: Sacroiliac joints, pubic symphysis, and hip joints congruent. Arcuate lines of the sacrum intact. The left superior and inferior pubic rami are slightly asymmetric to the right. It is difficult to exclu de nondisplaced fractures. No degenerative change. The left hip specifically demonstrates preservatio n of joint space and no demonstrable degenerative change. Left femoral neck intact. Moderate stool bu rden. IMPRESSION: 1. Difficult to exclude nondisplaced fractures of the left superior and inferior pubic rami. Otherwi se no acute osseous injury of the pelvis or left hip. 2. Constipation suggested. Electronically signed by: Boris Yousif M.D. 07/13/2019 9:39 PM
--- NOTE | 2019-07-13 22:24 | CT Scan Report ---
CT hip LT wo con CLINICAL HISTORY: 68 years-old Female presenting with poss fx, please include pubic rami. TECHNIQUE: Multidetector CT of the left hip was performed without the use of intravenous contrast. IV contrast: None. One or more dose lowering techniques were used consistent with the principles of ALA RA (as low as reasonably achievable), including automatic exposure control, mA or kV adjustment to in dividual patient size, and/or use of iterative reconstruction. COMPARISON: Plain radiographs performed earlier today. CT DOSE (mGy.cm): The estimated cumulative dose is 175.10 mGy.cm. FINDINGS: [employer] Professor topogram: Unremarkable. Spiral nondisplaced fracture of the left superior pubic ramus, which extends into the parasymphyseal region though not definitively intra-articular. Nondisplaced obliquely oriented fracture of the left inferior pubic ramus. Left femoral neck intact. No significant degenerative changes of the left hip. The acetabulum is inta ct. Pubic symphysis intact. Limited evaluation of the pelvis demonstrates a distended urinary bladder . No evidence of an extrapelvic hematoma. IMPRESSION: 1. Nondisplaced fractures of the left superior and inferior pubic rami. 2. No evidence of a hematoma. 3. Distended urinary bladder. Decompression recommended. Electronically signed by: Boris Yousif M.D. 07/13/2019 10:23 PM
[2019-07-13 22:29] LABS: Appearance Urine Clear (Clear); Bilirubin Urine Negative (Negative); Blood Urine Negative (Negative); Color Urine Yellow; Glucose Urine UA Negative (Negative); Ketones Urine Negative (Negative); Leukocyte Esterase Urine Negative (Negative); Nitrite Urine Negative (Negative); Protein Urine Negative (Negative); Specific Gravity Urine 1.016 (1.000-1.030); Urobilinogen Urine Negative (Negative); pH Urine 5.5 (4.5-7.5)
--- NOTE | 2019-07-13 23:07 | Emergency Department Note ---
Entered by Ifeoma Buchanan acting as a scribe for Alfonso Cedeño MD History of Present Illness General Chief complaint: Hip Pain Stated complaint: FALL, POSSIBLY BROKEN HIP Time Seen by Provider: 07/13/19 21:06 Source: patient History of Present Illness Onset (ago): hour(s) 4 (4.5) Location: hip (pain of left hip after fall) Pain Consistency: + other (episode) Maximum Pain Intensity: 2 Exacerbated By: + movement Associated symptoms: + denies other symptoms (back pain) The patient is a 68 year old F who presents to the Emergency Room with complaints of an episode of a fall that occurred 4.5 hours ago. The patient states that she was walking outside with her grandson, who was on his bicycle. She notes that she was walking on the sidewalk when she misstepped and lost her balance. She adds that she fell down and fell onto her left hip. She notes that she started to experience hip pain after her fall. She states that she could not get up by herself. She adds that her brought a car and her neighbors helped her up into the car. She states that movement worsens her pain. She denies hitting her had or a loss of consciousness. She also denies experiencing any back pain. She states that she has a history of wrist fractures. She adds that her tetanus is up to date. She notes that she is currently on aspirin but denies being on any other blood thinners. Home Medications Home Medications Medication Instructions Recorded Confirmed Type ascorbic acid (vitamin C) 500 mg PO DAILY #0 02/17/13 07/13/19 History aspirin 81 mg PO DAILY #0 09/10/13 07/13/19 History metformin [Glucophage XR] 1,000 mg PO PM #0 09/02/14 07/13/19 History qpmggn-ilxlduhc-ejzarvr [Creon] 2 cap PO DIRECTED #0 08/13/15 07/13/19 History emzivh-bixckgcs-jffckdk [Creon] 3 cap PO TID #0 08/13/15 07/13/19 History calcium carbonate-vitamin D3 2 tab PO DAILY #0 06/25/16 07/13/19 History insulin lispro protamin-lispro 1 sliding scale dose SUBCUT UD #0 06/25/16 07/13/19 History [Humalog Mix 75-25(U-100)Insuln] lisinopril 20 mg PO DAILY #0 06/25/16 07/13/19 History multivitamin with minerals 1 tab PO BID #0 06/25/16 07/13/19 History rosuvastatin [Crestor] 20 mg PO HS #0 06/15/17 07/13/19 History ferrous sulfate 65 mg PO DAILY #0 10/17/17 07/13/19 History insulin glargine (U-100) 100 8 units SUBCUT HS #0 ml 05/15/19 07/13/19 History unit/mL (3 mL) subcutaneous pen insulin glargine (U-100) 100 10 units SC QAM #0 ml 05/15/19 07/13/19 History unit/mL (3 mL) subcutaneous pen pantoprazole 40 mg tablet,delayed 40 mg PO DAILY #30 tab 05/21/19 07/13/19 Rx release cyanocobalamin (vit B-12) 1,000 1,000 mcg PO DAILY tab 06/18/19 07/13/19 History mcg tablet zinc gluconate 50 mg tablet 50 mg PO DAILY tab 06/18/19 07/13/19 History nitrofurantoin 100 mg PO BID #14 cap 07/10/19 07/13/19 Rx monohydrate/macrocrystals 100 mg capsule isosorbide mononitrate 30 mg PO QDL 07/13/19 07/13/19 History metoprolol tartrate 12.5 mg PO BID 07/13/19 07/13/19 History Allergies Allergy/AdvReac Type Severity Reaction Status Date / Time oxycodone AdvReac Intermediate "BRAIN Verified 07/13/19 22:54 DOESN'T FUNCTION RIGHT" amoxicillin AdvReac Mild YEAST Verified 07/13/19 22:54 INFECTIONS Past Med/Surg History Medical History Vitamin D deficiency (Acute) Seborrheic keratosis (Acute) Renal insufficiency (Acute) Rectal discharge (Acute) Pulmonary nodule (Acute) Pilomatrixoma (Acute) Pilar cyst (Acute) Pancreatic insufficiency (Acute) Pancreatic cyst (Acute) Osteoporosis (Acute) Multiple thyroid nodules (Acute) Mass of anus (Acute) Low sodium levels (Acute) Iron deficiency anemia (Acute) Internal hemorrhoids (Acute) Hypoglycemia due to type 1 diabetes mellitus (Acute) Hypercholesterolemia (Acute) Hepatic lesion (Acute) Gastroparesis (Acute) Gastrointestinal bleeding (Acute) Fecal urgency (Acute) Esophageal varices (Acute) Elevated transaminase level (Acute) Dyslipidemia (Acute) Diverticulosis of colon (Acute) Diabetes mellitus type 1, uncontrolled, without complications (Acute) Coronary arteriosclerosis (Acute) Cataracts, bilateral (Acute) Carotid artery stenosis (Acute) BMI 25.0-25.9,adult (Acute) Allergic rhinitis (Acute) Acid reflux Hx of acid reflux prior to removal of pancreas Arm fracture, left Pt reports fx x 3. Repaired with pins x1, repaired with screws/plate x1. Esophageal and gastric varicose veins HTN (hypertension) HTN (hypertension) History of pancreatic cancer IDDM (insulin dependent diabetes mellitus) IDDM (insulin dependent diabetes mellitus) Lesion of skin of scalp Removal benign scalp lesions x 12 different episodes Surgical History History of History of bilateral oophorectomy History of colonoscopy History of hysterectomy, supracervical History of surgery on wrist Hx of BSO (bilateral salpingo-oophorectomy) S/P RAMONA-BSO S/P RAMONA-BSO Family History Father Hyperlipidemia Essential hypertension Hypertension Other specified hearing loss, unspecified ear Mother Hypertension Cardiac disorder Sister Hyperlipidemia Essential hypertension Esophageal reflux Brother Translocation Down syndrome Hypertension Social History Preferred Language: Upper Sorbian Communication Ability: Effective Hearing Ability: Normal 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 and A total of 10 systems reviewed and were otherwise negative Physical Exam Vital Signs Vital Signs - 24 hr 07/13/19 20:34 07/13/19 22:23 07/14/19 00:00 Temperature 36.8 C Temperature Source Oral Sepsis Recent Fever Within 48 Hours No Sepsis New/Unexplained Change in Mental Status No Sepsis Action Taken by Nursing No Action Required Pulse Rate 82 Pulse Rate [Right] 77 74 Pulse Rhythm [Right] Regular Regular Pulse Strength [Right] Normal Normal Respiratory Rate 18 18 18 Respiratory Effort / Characteristics Non-Labored Spontaneous Non-Labored Spontaneous Respiratory Depth Normal Normal Respiratory Pattern Regular Blood Pressure 128/76 Blood Pressure [Right Arm] 130/82 128/86 Blood Pressure Mean 93 Blood Pressure Mean [Right Arm] 98 100 Blood Pressure Position [Right Arm] Lying Lying Pulse Oximetry 93 92 97 Oxygen Delivery Method Room Air Room Air Room Air 07/14/19 00:29 Temperature Temperature Source Sepsis Recent Fever Within 48 Hours Sepsis New/Unexplained Change in Mental Status Sepsis Action Taken by Nursing Pulse Rate 70 Pulse Rate [Right] Pulse Rhythm [Right] Pulse Strength [Right] Respiratory Rate 17 Respiratory Effort / Characteristics Respiratory Depth Respiratory Pattern Blood Pressure 124/78 Blood Pressure [Right Arm] Blood Pressure Mean Blood Pressure Mean [Right Arm] Blood Pressure Position [Right Arm] Pulse Oximetry 98 Oxygen Delivery Method Room Air GENERAL: Patient is in no acute distress. HEENT: No acute trauma, normocephalic atraumatic, mucous membranes moist, no nasal congestion, no scleral icterus. NECK: No stridor, no adenopathy, no meningismus, trachea is midline. LUNGS: Clear to auscultation bilaterally, no wheeze, no rhonchi, breath sounds equal. HEART: Without murmurs gallops or rubs, regular rate and rhythm. ABDOMEN: Soft, nontender, bowel sounds positive, no hernias, no peritonitis. EXTREMITIES: Abrasion to left palm and left posterior elbow. No pain to move the joints of left upper extremity, no LUE long bone discomfort to palpation. Tenderness over lateral left hip, with any left hip movement she has pain, no gross deformity to left lower extremity. NEUROLOGIC: Oriented x 3, no acute motor or sensory deficits, no focal weakness. SKIN: No rash, no jaundice, no diaphoresis. Course 2107: The patient was evaluated in room A9B. A complete history and physical exam was performed. 2146: I updated the patient on her XR results. I let the patient know that she will need a CT of her pelvis. 2258: I reviewed the patient's case with Dr. Medardo Hinkle, [facility] Hos pitalist. He will evaluate the patient for further management. Consultations Consultation #1: I reviewed the patient's case with Dr. Medardo Hinkle, [facility] Hospitalist. He will evaluate the patient for further management. Time: 22:59 Administered Medications Discontinued Medications Acetaminophen (Ofirmev) 1,000 mg in 100 mls @ 400 mls/hr IV NOW STA Stop: 07/13/19 21:25 Last Infusion: 07/13/19 21:48 Dose: 0 mls/hr Documented by: [id number] Admin: 07/13/19 21:28 Dose: 400 mls/hr Documented by: [id number] Ketorolac Tromethamine (Toradol) 15 mg IV NOW STA Stop: 07/13/19 21:12 Last Admin: 07/13/19 21:28 Dose: 15 mg Documented by: [id number] Medical Decision Making Differential Diagnosis Differential diagnosis includes: left hip fracture, pelvis fracture, left hip contusion, left hip dislocation, hip strain, hematoma Medical Records Attestation: I reviewed the patient's medical records. Home Medications Current Medication List: was personally reviewed by me Laboratory Data Attestation: I reviewed the patient's lab results. Result diagrams: 07/13/19 20:52 07/13/19 20:52 Lab Results 07/13/19 07/13/19 07/13/19 Range/Units 20:52 20:52 20:52 WBC 10.11 (4.8-10.8) K/uL RBC 3.85 L (4.2-5.4) M/uL Hgb 12.1 (12.0-16.0) g/dL Hct 36.7 L (37-47) % MCV 95.3 (80-100) fL MCH 31.4 (25-34) pg MCHC 33.0 (32-36) g/dL RDW Std Deviation 44.7 (36.4-46.3) fL RDW Coeff of Luz [place] 13.0 (11.5-14.5) % Plt Count 316 (130-400) K/uL MPV 11.2 H (7.4-10.4) fL Immature Gran % (Auto) 0.5 % Neut % (Auto) 69.7 % Lymph % (Auto) 20.9 % [place] % (Auto) 8.1 % Eos % (Auto) 0.6 % Baso % (Auto) 0.2 % Immature Gran # (Auto) 0.05 H (0.00-0.02) K/uL Neut # (Auto) 7.05 H (1.4-6.5) K/uL Lymph # (Auto) 2.11 (1.2-3.4) K/uL [place] # (Auto) 0.82 H (0.11-0.59) K/uL Eos # (Auto) 0.06 (0-0.5) K/uL Baso # (Auto) 0.02 (0-0.2) K/uL PT 10.5 (9.0-12.0) Seconds INR 1.0 (0.9-1.1) APTT 22.2 (21.0-31.0) Seconds PTT Ratio 0.8 Sodium 139 (136-145) mmol/L Potassium 4.8 (3.5-5.1) mmol/L Chloride 103 (98-107) mmol/L Carbon Dioxide 29 (21-32) mmol/L Anion Gap 6.0 (3-11) BUN 26 H (7-18) mg/dl Creatinine 0.87 (0.6-1.2) mg/dl Est Cr Clr Drug Dosing 48.3 ml/min Est GFR ( Amer) 78.8 Est GFR (Non-Af Amer) 68.0 BUN/Creatinine Ratio 29.9 H (10-20) Glucose 227 H (70-99) mg/dl Calcium 9.1 (8.5-10.1) mg/dl Urine Color Urine Appearance (Clear) Urine pH (4.5-7.5) Ur Specific [place] (1.000-1.030) Urine Protein (Negative) Urine Glucose (UA) (Negative) Urine Ketones (Negative) Urine Blood (Negative) Urine Nitrite (Negative) Urine Bilirubin (Negative) Urine Urobilinogen (Negative) Ur Leukocyte Esterase (Negative) 07/13/19 Range/Units 22:20 WBC (4.8-10.8) K/uL RBC (4.2-5.4) M/uL Hgb (12.0-16.0) g/dL Hct (37-47) % MCV (80-100) fL MCH (25-34) pg MCHC (32-36) g/dL RDW Std Deviation (36.4-46.3) fL RDW Coeff of Luz Marina (11.5-14.5) % Plt Count (130-400) K/uL MPV (7.4-10.4) fL Immature Gran % (Auto) % Neut % (Auto) % Lymph % (Auto) % [place] % (Auto) % Eos % (Auto) % Baso % (Auto) % Immature Gran # (Auto) (0.00-0.02) K/uL Neut # (Auto) (1.4-6.5) K/uL Lymph # (Auto) (1.2-3.4) K/uL [place] # (Auto) (0.11-0.59) K/uL Eos # (Auto) (0-0.5) K/uL Baso # (Auto) (0-0.2) K/uL PT (9.0-12.0) Seconds INR (0.9-1.1) APTT (21.0-31.0) Seconds PTT Ratio Sodium (136-145) mmol/L Potassium (3.5-5.1) mmol/L Chloride (98-107) mmol/L Carbon Dioxide (21-32) mmol/L Anion Gap (3-11) BUN (7-18) mg/dl Creatinine (0.6-1.2) mg/dl Est Cr Clr Drug Dosing ml/min Est GFR ( Amer) Est GFR (Non-Af Amer) BUN/Creatinine Ratio (10-20) Glucose (70-99) mg/dl Calcium (8.5-10.1) mg/dl Urine Color Yellow Urine Appearance Clear (Clear) Urine pH 5.5 (4.5-7.5) Ur Specific [place] 1.016 (1.000-1.030) Urine Protein Negative (Negative) Urine Glucose (UA) Negative (Negative) Urine Ketones Negative (Negative) Urine Blood Negative (Negative) Urine Nitrite Negative (Negative) Urine Bilirubin Negative (Negative) Urine Urobilinogen Negative (Negative) Ur Leukocyte Esterase Negative (Negative) Imaging Data Radiologist's Impression: Radiology results as stated below per my review and the radiologist's interpretation: XR hip LT 2V w pelvis CLINICAL HISTORY: 68 years-old Female presenting with left hip pain. TECHNIQUE: Single frontal view of the pelvis and frontal and frog-leg lateral views of the left hip were obtained. COMPARISON: Comparison made to CT of the abdomen and pelvis from 10/17/2017. FINDINGS: Sacroiliac joints, pubic symphysis, and hip joints congruent. Arcuate lines of the sacrum intact. The left superior and inferior pubic rami are slightly asymmetric to the right. It is difficult to exclude nondisplaced fractures. No degenerative change. The left hip specifically demonstrates preservation of joint space and no demonstrable degenerative change. Left femoral neck intact. Moderate stool burden. IMPRESSION: 1. Difficult to exclude nondisplaced fractures of the left superior and inferior pubic rami. Otherwise no acute osseous injury of the pelvis or left hip. 2. Constipation suggested. Electronically signed by: Boris Yousif M.D. 07/13/2019 9:[address] hip LT wo con CLINICAL HISTORY: 68 years-old Female presenting with poss fx, please include pubic rami. TECHNIQUE: Multidetector CT of the left hip was performed without the use of intravenous contrast. IV contrast: None. One or more dose lowering techniques were used consistent with the principles of ALARA (as low as reasonably achievable), including automatic exposure control, mA or kV adjustment to individual patient size, and/or use of iterative reconstruction. COMPARISON: Plain radiographs performed earlier today. CT DOSE (mGy.cm): The estimated cumulative dose is 175.10 mGy.cm. FINDINGS: Parachute Cushion Installer topogram: Unremarkable. Spiral nondisplaced fracture of the left superior pubic ramus, which extends into the parasymphyseal region though not definitively intra-articular. Nondisplaced obliquely oriented fracture of the left inferior pubic ramus. Left femoral neck intact. No significant degenerative changes of the left hip. The acetabulum is intact. Pubic symphysis intact. Limited evaluation of the pelvis demonstrates a distended urinary bladder. No evidence of an extrapelvic hematoma. IMPRESSION: 1. Nondisplaced fractures of the left superior and inferior pubic rami. 2. No evidence of a hematoma. 3. Distended urinary bladder. Decompression recommended. Electronically signed by: Boris Yousif M.D. 07/13/2019 10:23 PM Blood Pressure Blood Pressure Findings: Elevated blood pressure Blood Pressure Disposition: further management by hospitalist RAGHAV Randolph There is no leukocytosis or concerning anemia. No coagulopathy. No significant electrolyte abnormality or kidney failure. Urinalysis does not show infection or any evidence for hematuria. Left hip and pelvis film shows a possible fracture to the inferior and superior pubic ramus. No hip fracture. CT of the pelvis and left hip shows evidence for a superior and inferior left pubic ramus fracture, no hip fracture. The patient received IV Tylenol, IV Toradol, she is resting comfortably at present. The patient cannot walk, she cannot move without severe pain. Even coughing causes terrible pain. I do not think she is stable for discharge. She will require strengthening, physical therapy, possibly inpatient rehab. I did speak to the patient and case management. The on-call hospitalist was consulted. Impression & Plan Pelvic fracture, Fall, Hip pain, left Discharge Plan Visit Data Chief Complaint: Hip Pain Stated Complaint: FALL, POSSIBLY BROKEN HIP ED Provider: Alfonso Cedeño Discharge Problem: Pelvic fracture, Fall, Hip pain, left Patient Disposition: Admitted As Inpatient Discharge Instructions Interventions: ED Discharge Assessment Last Done: 07/14/19 00:29 Forms Stand Alone Forms: My [facility] [place] Prescriptions Prescriptions: No Action ascorbic acid (vitamin C) 500 mg Tablet 500 mg PO DAILY Qty: 0 RF: 0 aspirin 81 mg Tablet,Delayed Release (Dr/Ec) 81 mg PO DAILY Qty: 0 RF: 0 metformin [Glucophage XR] 500 mg Tablet Extended Release 24 Hr 1,000 mg PO PM Qty: 0 RF: 0 Creon 3,000-9,500- 15,000 unit Capsule,Delayed Release(Dr/Ec) 2 cap PO DIRECTED Qty: 0 RF: 0 Creon 3,000-9,500- 15,000 unit Capsule,Delayed Release(Dr/Ec) 3 cap PO TID Qty: 0 RF: 0 lisinopril 20 mg Tablet 20 mg PO DAILY Qty: 0 RF: 0 Humalog Mix 75-25(U-100)Insuln 100 unit/mL (75-25) Suspension 1 sliding scale dose SUBCUT UD Qty: 0 RF: 0 multivitamin with minerals Tablet 1 tab PO BID Qty: 0 RF: 0 calcium carbonate-vitamin D3 600 mg (1,500 mg)-2,500 unit Capsule 2 tab PO DAILY Qty: 0 RF: 0 rosuvastatin [Crestor] 20 mg Tablet 20 mg PO HS Qty: 0 RF: 0 ferrous sulfate 27 mg iron Tablet 65 mg PO DAILY Qty: 0 RF: 0 Lantus Solostar U-100 Insulin 100 unit/mL (3 mL) insulin pen 10 units SC QAM Qty: 0 RF: 0 Lantus Solostar U-100 Insulin 100 unit/mL (3 mL) insulin pen 8 units SUBCUT HS Qty: 0 RF: 0 pantoprazole 40 mg tablet,delayed release (DR/EC) 40 mg PO DAILY Qty: 30 RF: 5 nitrofurantoin monohyd/m-cryst [Macrobid] 100 mg capsule 100 mg PO BID Qty: 14 RF: 0 cyanocobalamin (vitamin B-12) 1,000 mcg tablet 1,000 mcg PO DAILY RF: 0 zinc gluconate 50 mg tablet 50 mg PO DAILY RF: 0 isosorbide mononitrate 30 mg tablet extended release 24 hr 30 mg PO QDL RF: 0 metoprolol tartrate 25 mg tablet 12.5 mg PO BID RF: 0 Referrals Referrals: Skip Yee MD [Primary Care Provider] - Discharge Problem: Pelvic fracture Qualifiers: Encounter type: initial encounter Pelvic bone location: other part of pelvis Fall Qualifiers: Encounter type: initial encounter Qualified Code(s): W19.XXXA - Unspecified fall, initial encounter The scribe's documentation has been prepared under my direction and personally reviewed by me in its entirety. I confirm that the note above accurately reflects all work, treatment, procedures, and medical decision making performed by me.
--- NOTE | 2019-07-13 23:54 | History & Physical Report ---
Date of Service July 13, 2019 Assessment & Plan (1) Pelvic fracture: Nondisplaced fractures left superior and inferior pubic rami- Will need PT/OT assessment. Pain control. Present on Admission?: Yes (2) Fall: Mechanical fall Present on Admission?: Yes (3) Hypercholesterolemia: Continue rosuvastatin 20 mg at bedtime Present on Admission?: Yes (4) Pancreatic insufficiency: Continue Creon Present on Admission?: Yes (5) CAD (coronary artery disease), [place] coronary artery: CAD/hypertension continue aspirin, isosorbide mononitrate, metoprolol tartrate and lisinopril. Present on Admission?: Yes (6) Hypertension: See above Present on Admission?: Yes (7) Diabetes mellitus: Hold metformin. Continue Lantus insulin 10 units subcu in the a.m. and 8 units subcu at bedtime. Placed on Accu-Cheks before meals and at bedtime with NovoLog coverage per scale Present on Admission?: Yes History of Present Illness Chief Complaint: The patient presents to the emergency department with acute onset of left hip and groin pain after a fall sustained outside Primary Care Provider: Collin Yee MD The patient is a 68-year-old female who reports that she was walking with her dog, and that she was stepping down over a small step outside, her foot planted incorrectly, and that as she was going down, she went to protect her left wrist, which have been broken a number of times, and landed on her left hip and pelvis area. She sustained severe pain as soon as she tried to put her weight back on her leg. In the emergency department work-up included x-rays and CT which confirmed nondisplaced fractures in the left superior and inferior pubic rami. Allergies Allergy/AdvReac Type Severity Reaction Status Date / Time oxycodone AdvReac Intermediate "BRAIN Verified 07/13/19 22:54 DOESN'T FUNCTION RIGHT" amoxicillin AdvReac Mild YEAST Verified 07/13/19 22:54 INFECTIONS Home Medications Home Medications Medication Instructions Recorded Confirmed Type ascorbic acid (vitamin C) 500 mg PO DAILY #0 02/17/13 07/13/19 History aspirin 81 mg PO DAILY #0 09/10/13 07/13/19 History metformin [Glucophage XR] 1,000 mg PO PM #0 09/02/14 07/13/19 History ugmjxr-qvsdttqj-paoutlc [Creon] 2 cap PO DIRECTED #0 08/13/15 07/13/19 History cyoclj-sxyrxuwm-hprnvyy [Creon] 3 cap PO TID #0 08/13/15 07/13/19 History calcium carbonate-vitamin D3 2 tab PO DAILY #0 06/25/16 07/13/19 History insulin lispro protamin-lispro 1 sliding scale dose SUBCUT UD #0 06/25/16 07/13/19 History [Humalog Mix 75-25(U-100)Insuln] lisinopril 20 mg PO DAILY #0 06/25/16 07/13/19 History multivitamin with minerals 1 tab PO BID #0 06/25/16 07/13/19 History rosuvastatin [Crestor] 20 mg PO HS #0 06/15/17 07/13/19 History ferrous sulfate 65 mg PO DAILY #0 10/17/17 07/13/19 History insulin glargine (U-100) 100 8 units SUBCUT HS #0 ml 05/15/19 07/13/19 History unit/mL (3 mL) subcutaneous pen insulin glargine (U-100) 100 10 units SC QAM #0 ml 05/15/19 07/13/19 History unit/mL (3 mL) subcutaneous pen pantoprazole 40 mg tablet,delayed 40 mg PO DAILY #30 tab 05/21/19 07/13/19 Rx release cyanocobalamin (vit B-12) 1,000 1,000 mcg PO DAILY tab 06/18/19 07/13/19 History mcg tablet zinc gluconate 50 mg tablet 50 mg PO DAILY tab 06/18/19 07/13/19 History nitrofurantoin 100 mg PO BID #14 cap 07/10/19 07/13/19 Rx monohydrate/macrocrystals 100 mg capsule isosorbide mononitrate 30 mg PO QDL 07/13/19 07/13/19 History metoprolol tartrate 12.5 mg PO BID 07/13/19 07/13/19 History Past Med/Surg History Social History Preferred Language: Cuban Communication Ability: Effective Hearing Ability: Normal Simplex Operator Required: Yes Beliefs That Will Affect Care: None Current Living Situation: Spouse and Family Current Living Situation Comment: Mentally handicap sister current occupational status: retired Other Information That Helps Us Care for You: No Feels Safe at Home: Yes Smoking Status: Never smoker Hx Alcohol Use: Yes Hx Substance Use: No caffeine: No Seatbelt Use: always Review of Systems Review of Systems: The patient denies chest pain, palpitations, shortness of breath, dyspnea on exertion, cough, lower extremity swelling, sore throat, fevers, chills, sweats, weight change, fatigue, nausea, vomiting, diarrhea , constipation, abdominal pain, pelvic pain, blood in urine or stool, dysuria, urinary frequency or urgency, lightheadedness, dizziness, headache, memory loss, loss of consciousness, rash, abnormal bruising or bleeding, focal or generalized weakness, numbness or tingling in arms. generalized arthralgias or myalgias, back or neck pain, or night sweats. The review of systems is otherwise negative other than for that already noted above, and at least 10 systems have been reviewed. Physical Exam Physical Exam: The patient is awake, alert and oriented 3, well developed and well nourished, normocephalic and atraumatic, lying in bed and in no acute distress. HEENT--PERRL, EOMI, mucous membranes and oropharynx dry. Neck--supple. No JVD. No bruits. Thyroid normal, trachea midline, no ad enopathy. Heart--normal S1 and S2. No murmurs, rubs or gallops. Lungs--clear bilaterally, no respiratory distress, no accessory muscle use. Abdomen/pelvis--normal bowel sounds and soft. Nontender. Nondistended. Reproducible pain over left groin. Extremities--no cyanosis or clubbing. No edema. There are good distal pulses b/l. Dermatologic--surface abrasions noted on left forearm and elbow. Neurologic--cranial nerves II through XII grossly intact. Rheumatologic--limited exam due to pain Psychiatric--normal affect. Results & Data Vital Signs (Past 12 Hours) Vital Signs Temp Pulse Pulse Resp BP BP Pulse Ox 07/13/19 22:23 77 18 130/82 92 07/13/19 20:34 98.2 F 82 18 128/76 93 Laboratory Results Laboratory Results WBC 10.11 K/uL (4.8-10.8) 07/13/19 20:52 RBC 3.85 M/uL (4.2-5.4) L 07/13/19 20:52 Hgb 12.1 g/dL (12.0-16.0) 07/13/19 20:52 Hct 36.7 % (37-47) L 07/13/19 20:52 MCV 95.3 fL (80-100) 07/13/19 20:52 MCH 31.4 pg (25-34) 07/13/19 20:52 MCHC 33.0 g/dL (32-36) 07/13/19 20:52 RDW Std Deviation 44.7 fL (36.4-46.3) 07/13/19 20:52 RDW Coeff of [place] 13.0 % (11.5-14.5) 07/13/19:52 Plt Count 316 K/uL (130-400) 07/13/19 20:52 MPV 11.2 fL (7.4-10.4) H 07/13/19 20:52 Immature Gran % (Auto) 0.5 % 07/13/19 20:52 Neut % (Auto) 69.7 % 07/13/19 20:52 Lymph % (Auto) 20.9 % 07/13/19 20:52 [place] % (Auto) 8.1 % 07/13/19 20:52 Eos % (Auto) 0.6 % 07/13/19 20:52 Baso % (Auto) 0.2 % 07/13/19 20:52 Immature Gran # (Auto) 0.05 K/uL (0.00-0.02) H 07/13/19 20:52 Neut # (Auto) 7.05 K/uL (1.4-6.5) H 07/13/19 20:52 Lymph # (Auto) 2.11 K/uL (1.2-3.4) 07/13/19 20:52 [place] # (Auto) 0.82 K/uL (0.11-0.59) H 07/13/19 20:52 Eos # (Auto) 0.06 K/uL (0-0.5) 07/13/19 20:52 Baso # (Auto) 0.02 K/uL (0-0.2) 07/13/19 20:52 PT 10.5 Seconds (9.0-12.0) 07/13/19 20:52 INR 1.0 (0.9-1.1) 07/13/19 20:52 APTT 22.2 Seconds (21.0-31.0) 07/13/19 20:52 PTT Ratio 0.8 07/13/19 20:52 Sodium 139 mmol/L (136-145) 07/13/19 20:52 Potassium 4.8 mmol/L (3.5-5.1) 07/13/19 20:52 Chloride 103 mmol/L (98-107) 07/13/19 20:52 Carbon Dioxide 29 mmol/L (21-32) 07/13/19 20:52 Anion Gap 6.0 (3-11) 07/13/19 20:52 BUN 26 mg/dl (7-18) H 07/13/19 20:52 Creatinine 0.87 mg/dl (0.6-1.2) 07/13/19 20:52 Est Cr Clr Drug Dosing 48.3 ml/min 07/13/19 20:52 Est GFR ( Amer) 78.8 07/13/19 20:52 Est GFR (Non-Af Amer) 68.0 07/13/19 20:52 BUN/Creatinine Ratio 29.9 (10-20) H 07/13/19 20:52 Glucose 227 mg/dl (70-99) H 07/13/19 20:52 Calcium 9.1 mg/dl (8.5-10.1) 07/13/19 20:52 Urine Color Yellow 07/13/19 22:20 Urine Appearance Clear (Clear) 07/13/19 22:20 Urine pH 5.5 (4.5-7.5) 07/13/19 22:20 Ur Specific [place] 1.016 (1.000-1.030) 07/13/19 22:20 Urine Protein Negative (Negative) 07/13/19 22:20 Urine Glucose (UA) Negative (Negative) 07/13/19 22:20 Urine Ketones Negative (Negative) 07/13/19 22:20 Urine Blood Negative (Negative) 07/13/19 22:20 Urine Nitrite Negative (Negative) 07/13/19 22:20 Urine Bilirubin Negative (Negative) 07/13/19 22:20 Urine Urobilinogen Negative (Negative) 07/13/19 22:20 Ur Leukocyte Esterase Negative (Negative) 07/13/19 22:20 Diagnostic Findings [facility], [place] [phone] XRay Report Patient: TREVIN MARY Date: 07/13/19 MR#: [id number]: [address] Acct ID:[id number]: Date: 1950 Zip: [place] [address] Age: 68Location: ED Sex: F Room/Bed: Att Phy:Diagnosis: FALL, POSSIBLY BROKEN HIP Maddy Phy: Collin Yee, MDService Date: 07/13/19 Fam Phy:Interpreting Phy: Boris Yousif MD Admit Phy: Ordering Phy: Alfonso Cedeño M.D. cc: ~ XR hip LT 2V w pelvis CLINICAL HISTORY: 68 years-old Female presenting with left hip pain. TECHNIQUE: Single frontal view of the pelvis and frontal and frog-leg lateral views of the left hip were obtained. COMPARISON: Comparison made to CT of the abdomen and pelvis from 10/17/2017. FINDINGS: Sacroiliac joints, pubic symphysis, and hip joints congruent. Arcuate lines of the sacrum intact. The left superior and inferior pubic rami are slightly asymmetric to the right. It is difficult to exclude nondisplaced fractures. No degenerative change. The left hip specifically demonstrates preservation of joint space and no demonstrable degenerative change. Left femoral neck intact. Moderate stool burden. IMPRESSION: 1. Difficult to exclude nondisplaced fractures of the left superior and inferior pubic rami. Otherwise no acute osseous injury of the pelvis or left hip. 2. Constipation suggested. Electronically signed by: Boris Yousif M.D. 07/13/2019 9:39 PM Dictated: 07/13/192134 Transcribed: 07/13/192134 [facility], [place] [phone] CT Scan Report Patient: TREVIN MARYmit Date: 07/13/19 MR#: [id number]: [address] Acct ID:[id number]: Date: 1950[facility] Zip: [place] [address] Age: 68Location: ED Sex: F Room/Bed: Att Phy:Diagnosis: FALL, POSSIBLY BROKEN HIP Maddy Phy: YeeVaughn vegabijubrigida Arenas, MDService Date: 07/13/19 [facility] Phy:Interpreting Phy: Boris Yousif MD Admit Phy: Ordering Phy: Alfonso Cedeño M.D. cc: ~ CT hip LT wo con CLINICAL HISTORY: 68 years-old Female presenting with poss fx, please include pubic rami. TECHNIQUE: Multidetector CT of the left hip was performed without the use of intravenous contrast. IV contrast: None. One or more dose lowering techniques were used consistent with the principles of ALARA (as low as reasonably achievable), including automatic exposure control, mA or kV adjustment to individual patient size, and/or use of iterative reconstruction. COMPARISON: Plain radiographs performed earlier today. CT DOSE (mGy.cm): The estimated cumulative dose is 175.10 mGy.cm. FINDINGS: Supervisor Photoengraving topogram: Unremarkable. Spiral nondisplaced fracture of the left superior pubic ramus, which extends into the parasymphyseal region though not definitively intra-articular. Nondisplaced obliquely oriented fracture of the left inferior pubic ramus. Left femoral neck intact. No significant degenerative changes of the left hip. The acetabulum is intact. Pubic symphysis intact. Limited evaluation of the pelvis demonstrates a distended urinary bladder. No evidence of an extrapelvic hematoma. IMPRESSION: 1. Nondisplaced fractures of the left superior and inferior pubic rami. 2. No evidence of a hematoma. 3. Distended urinary bladder. Decompression recommended. Electronically signed by: Boris Yousif M.D. 07/13/2019 10:23 PM Dictated: 07/13/192219 Transcribed: 07/13/192219 Code Status & VTE Plan Code Status Full code VTE Prophylaxis Plan VTE Prophylaxis will be ordered: Yes PG Care Time/CCT Total # of Minutes Spent Total Time Spent with Patient: Total time spent is greater than 50% in coordination of care (as documented) at patient's floor/unit and/or counseling patient: (1) Pelvic fracture Encounter type: initial encounter Pelvic bone location: other part of pelvis (2) Fall Encounter type: initial encounter Qualified Code(s): W19.XXXA - Unspecified fall, initial encounter
[2019-07-14] MEDS ORDERED: CARBOHYDRATES FOR HYPOGLYCEMIA PO PRN (00:41)
[2019-07-14] MEDS ORDERED: ACETAMINOPHEN 325 MG TAB PO PRN (00:41)
[2019-07-14] MEDS ORDERED: ONDANSETRON INJ 2 MG/ML 2 ML VIAL IV PRN (00:41)
[2019-07-14] MEDS ORDERED: GLUCOSE 40% GEL 15 GM TUBE PO PRN (00:41)
[2019-07-14] MEDS ORDERED: GLUCAGON FOR INJ 1 MG VIAL SQ PRN (00:41)
[2019-07-14] MEDS ORDERED: MAGNESIUM HYDROXIDE SUSP 30 ML UDC PO PRN (00:41)
[2019-07-14] MEDS ORDERED: DEXTROSE 50% 50 ML SYRINGE IV PRN (00:41)
[2019-07-14] MEDS ORDERED: TRAMADOL HCL 50 MG TABLET PO PRN (00:41)
[2019-07-14] MEDS ORDERED: ALUMINUM/MAGNESIUM SUSP 30 ML UDC PO PRN (00:41)
[2019-07-14] MEDS ORDERED: GLUCOSE 10 TABS/TUBE PO PRN (00:41)
[2019-07-14] MEDS: METOPROLOL TARTRATE 25 MG TAB PO SCH ×3 (00:49→20:40)
[2019-07-14] MEDS ORDERED: INSULIN LISPRO 100 UNIT/ML SQ SCH (07:30)
[2019-07-14] MEDS ORDERED: INSULIN ASPART 100 UNITS/ML 3 ML PEN SC SCH (07:30)
[2019-07-14 07:39] LABS: Estimated Average Glucose 232 mg/dl; Hemoglobin A1C 9.7 % (4.5-5.6)
[2019-07-14] MEDS ORDERED: PANCREAZE (LIPASE 10,500U) CAP PO PRN (08:00)
[2019-07-14] MEDS: ASPIRIN 81 MG ECTAB PO SCH (08:01)
[2019-07-14] MEDS: CEROVITE ADV FORMULA TAB PO SCH ×2 (08:01→20:42)
[2019-07-14] MEDS: ZINC SULFATE 220 MG CAPSULE PO SCH (08:01)
[2019-07-14] MEDS: PANTOprazole 40 MG TAB PO SCH (08:01)
[2019-07-14] MEDS: CYANOCOBALAMIN 500 MCG TABLET (VITAMIN B-12) PO SCH (08:02)
[2019-07-14] MEDS: PANCREAZE (LIPASE 10,500U) CAP PO SCH ×3 (08:03→17:45)
[2019-07-14] MEDS: FERROUS SULFATE 325 MG TAB PO SCH (08:04)
[2019-07-14] MEDS: lisinopriL 20 MG TAB PO SCH (08:04)
[2019-07-14] MEDS: ASCORBIC ACID 500 MG TAB PO SCH (08:04)
[2019-07-14] MEDS: CALCIUM 600MG + VIT D 400 IU TAB PO SCH (08:05)
[2019-07-14] MEDS: INSULIN GLARGINE SOLOSTAR 100 UNITS/ML 3 ML PEN SC SCH ×2 (08:25→10:48)
[2019-07-14] MEDS: INSULIN LISPRO 100 UNIT/ML SQ SCH ×4 (09:02→21:15)
[2019-07-14] MEDS: ISOSORBIDE MONO EXTENDED REL 30 MG TABCR PO SCH (13:03)
--- NOTE | 2019-07-14 14:14 | Family Medicine Progress Note ---
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 She is admitted for observation for inability to bear weight and they nondisplaced fracture of the left superior and inferior pubic rami. Pelvic fracture 2/2 mechanical fall Mechanical fall while walking her dog No signs of syncope or presyncope that led to her fall CT and x-ray confirm fracture of superior and inferior left pubic rami. No hematoma appreciated. No surgical intervention indicated at this time. Pending PT/OT evaluation and rehab recommendations No head trauma or loss of consciousness, no altered mental status Pain control with APAP 650 mg p.o. every 4 hours as needed, tramadol 50 mg p.o. 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 twice daily Continue lisinopril 20 mg p.o. daily Coronary artery disease/hyperlipidemia with history of VA S/P PCI without stent Continue rosuvastatin 20 mg p.o. nightly Continue aspirin low-dose daily GERD prophylaxis Continue pantoprazole 40 mg p.o. daily DVT prophylaxis: SCDs, heparin 5000 units subcu every 12 hours Disposition: Pending PT/OT eval (2) CAD (coronary artery disease), [place] coronary artery: (3) Hypertension: (4) Pelvic fracture: (5) Fall: (6) Hip pain, left: (7) Vitamin D deficiency: Supervising Physician Co-Signing Physician Notes I personally examined the patient and verified all davis points of history and exam, discussed case, and agree with decision making with Dr Cooney. Feeling okay when she still. Does have a lot of pain with movement. Did surprisingly well with therapy, and actually will be able to go home. Discussed safety measures extensively. Discussed that given she is already on vitamin D and a bisphosphonate that a referral for next level osteoporosis management would be warranted Vitals noted, in general she is in no distress except for on her she moves when she briefly winces in pain. H EENT normocephalic atraumatic mucous membranes moist. Breathing unlabored no accessory muscle use good effort. No focal neuro deficits. Osteoporotic pelvic fractureimproving. Pain control. Appears to be stable for home with outpatient therapy. Will want referral to endocrine for next level osteoporosis treatment as an outpatient given that she is failing good aggressive treatment Uncontrolled diabetesoutpatient follow-up Maira Em is seen at the bedside today. She reports she feels very well "as long as I do not move ". She reports her night went well and she did not have any fevers or chills. She was up and ambulated this morning with a walker and one assist, but felt she could barely put any weight on her left hip. She has no pain at rest, but easily jumps up to an 8/10 with weight. She feels that a 5-6 out of 10 pain is tolerable to her. She has not taken any pain medications, and denies these because she worries about side effects. Discussed that narcotics can the patient is at risk for decreased breathing, discussed long-term consequences however noted that the using Tylenol first and then potentially narcotics as an adjunct with a goal of not to make her pain-free, but to allow her to control pain enough to engage in rehab and to be functional during her recovery. No questions or concerns at time of visit. Review of Systems Review of Systems: Constitutional: Denies fever, chills. Endorses some sweats overnight. Eyes: Denies double vision, vision change, eye pain ENT: Denies ear pain, sore throat, sinus pain Cardiovascular: Denies Chest pain, chest pressure, palpitations, extremity swelling Respiratory: Denies shortness of breath, cough, sputum production, difficulty breathing Gastrointestinal: Denies abdominal pain, nausea, vomiting, constipation, diarrhea Genitourinary: Dysuria, difficulty urinating. Musculoskeletal: Endorses left hip and pelvic pain worse with ambulation. Otherwise denies pain, weakness. Integumentary:Denies rash, lesions, bruising Neurological: Denies headache, numbness, tingling, focal weakness Physical Exam Physical Exam: General: A&Ox3. NAD. Cooperative. HEENT: Atraumatic, normocephalic. Pulm: CTAB A&P. -wheezes, -rales, -rhonchi. Symmetrical chest rise. No increase work of breathing. No respiratory distress. Cardiac: RRR, -mrg. Radial pulses intact and symmetrical. Abdominal: Nontender, nondistended, soft. BS present. No pelvic instability. Extremity: Right hip flexion, knee flexion/extension, ankle dorsiflexion/plantarflexion 5/5 without pain and no referred pain to the left. Left hip flexion pain limited by pain at the left hip and thigh. Left knee flexion/extension 5/5, dorsiflexion/plantar flexion 5/5. No hematoma or ecchymoses appreciated. 5/10 pain on left heel pressure/heel bump. Results & Data Vital Signs (Past 12 Hours) Vital Signs Temp Pulse Resp BP Pulse Ox 07/14/19 07:42 36.6 C 77 16 148/87 H 93 PG Care Time/CCT Total # of Minutes Spent Total Time Spent with Patient: Total time spent is greater than 50% in coordination of care (as documented) at patient's floor/unit and/or counseling patient: Resident Activity Tracking Resident Involvement: Resident Care Provided Care Provided: Adult Hospital Medicine (1) Fall Encounter type: initial encounter Qualified Code(s): W19.XXXA - Unspecified fall, initial encounter (2) Pelvic fracture Encounter type: initial encounter Pelvic bone location: other part of pelvis
[2019-07-14] MEDS ORDERED: INSULIN GLARGINE SOLOSTAR 100 UNITS/ML 3 ML PEN SQ SCH (21:00)
[2019-07-14] MEDS ORDERED: ROSUVASTATIN CALCIUM 20 MG TAB PO SCH (21:00)
[2019-07-15] MEDS: CYANOCOBALAMIN 500 MCG TABLET (VITAMIN B-12) PO SCH (08:30)
[2019-07-15] MEDS: METOPROLOL TARTRATE 25 MG TAB PO SCH (08:31)
[2019-07-15] MEDS: CEROVITE ADV FORMULA TAB PO SCH (08:32)
[2019-07-15] MEDS: PANTOprazole 40 MG TAB PO SCH (08:32)
[2019-07-15] MEDS: ASPIRIN 81 MG ECTAB PO SCH (08:35)
[2019-07-15] MEDS: lisinopriL 20 MG TAB PO SCH (08:35)
[2019-07-15] MEDS: CALCIUM 600MG + VIT D 400 IU TAB PO SCH (08:36)
[2019-07-15] MEDS: FERROUS SULFATE 325 MG TAB PO SCH (08:36)
[2019-07-15] MEDS: PANCREAZE (LIPASE 10,500U) CAP PO SCH ×2 (08:36→12:33)
[2019-07-15] MEDS: ASCORBIC ACID 500 MG TAB PO SCH (08:37)
[2019-07-15] MEDS: ZINC SULFATE 220 MG CAPSULE PO SCH (08:37)
[2019-07-15] MEDS: INSULIN GLARGINE SOLOSTAR 100 UNITS/ML 3 ML PEN SC SCH (08:55)
[2019-07-15] MEDS: INSULIN LISPRO 100 UNIT/ML SQ SCH ×2 (08:56→13:32)
[2019-07-15] MEDS: ISOSORBIDE MONO EXTENDED REL 30 MG TABCR PO SCH (12:32)
--- NOTE | 2019-07-15 12:50 | Discharge Summary ---
Date of Service July 15, 2019 Admission HPI Per Admitting Provider The patient is a 68-year-old female who reports that she was walking with her dog, and that she was stepping down over a small step outside, her foot planted incorrectly, and that as she was going down, she went to protect her left wrist, which have been broken a number of times, and landed on her left hip and pelvis area. She sustained severe pain as soon as she tried to put her weight back on her leg. In the emergency department work-up included x-rays and CT which confirmed nondisplaced fractures in the left superior and inferior pubic rami. Admission Exam Per Admitting Provider The patient is awake, alert and oriented 3, well developed and well nourished, normocephalic and atraumatic, lying in bed and in no acute distress. HEENT--PERRL, EOMI, mucous membranes and oropharynx dry. Neck--supple. No JVD. No bruits. Thyroid normal, trachea midline, no adenopathy. Heart--normal S1 and S2. No murmurs, rubs or gallops. Lungs--clear bilaterally, no respiratory distress, no accessory muscle use. Abdomen/pelvis--normal bowel sounds and soft. Nontender. Nondistended. Reproducible pain over left groin. Extremities--no cyanosis or clubbing. No edema. There are good distal pulses b/l. Dermatologic--surface abrasions noted on left forearm and elbow. Neurologic--cranial nerves II through XII grossly intact. Rheumatologic--limited exam due to pain Psychiatric--normal affect. Principal Diagnosis Pelvic Fracture Discharge Exam General: A&Ox3. NAD. Cooperative. HEENT: Atraumatic, normocephalic. Pulm: CTAB A&P. -wheezes, -rales, -rhonchi. Symmetrical chest rise. No increase work of breathing. No respiratory distress. Cardiac: RRR, -mrg. Radial pulses intact and symmetrical. Abdominal: Nontender, nondistended, soft. BS present. No pelvic instability. Extremity: Right hip flexion, knee flexion/extension, ankle dorsiflexi on/plantarflexion 5/5 without pain and no referred pain to the left. Left hip flexion slowly intact, pain limited by pain at the left hip and thigh. Left knee flexion/extension 5/5, dorsiflexion/plantar flexion 5/5. No hematoma or ecchymoses appreciated. 3/10 pain on left heel pressure/heel bump. 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 She was admitted for observation for inability to bear weight and they nondisplaced fracture of the left superior and inferior pubic rami. Pelvic fracture 2/2 mechanical fall Maria Antonia presented to the hospital following a mechanical fall while walking her dog. No signs of syncope or presyncope that led to her fall. CT and x-ray confirmed fracture of superior and inferior left pubic rami. No hematoma appreciated.No head trauma or loss of consciousness, no altered mental status was present. No surgical intervention was indicated. PT/OT eval recommend weight bearing as tolerated and discharge to home with home physical therapy. She was discharged home with pain control with APAP 650 mg p.o. every 4 hours as needed, tramadol 50 mg p.o. every 4 hours for breakthrough as needed. Osteoporosis Maria Antonia's fall, pelvic fracture, and imagine raised concern for osteoporosis. Her GRAIN PICKER bone health regimen included calcium and vitamin D supplementation with yearly bisphosphonate treatment. She was recommended to followup with her PCP for potential referral to endocrinology for further evaluation/management of osteoporosis and possible DXA scan, and improved control of her diabetes (further discussed below). Pancreatic insufficiency/DM due to pancreatectomy with A1C 9.1% Maria Antonia has a history of pancreatic insufficiency and diabetes mellitus following a pancreatectomy for cystic pancreatic masses. She was continued on her GRAIN PICKER creon, insulin glargine, and lispro during admission. SHe did not experience any gastrointestinal symptoms during admission, but did have a mildly increased serum glucose while her metformin was held which downtrended overnight. Her A1C during admission was 9.1%. While she had adequate glycemic control during admission she was discharged to resume her normal GRAIN PICKER medications with followup to her PCP for further adjustment of her antiglycemic regimen. Hypertension Maria Antonia has a history of hypertension. Her home dosing of metoprolol 12.5mg PO twice daily and lisinopril 20mg daily were continued. She had intermittent hypertensive episodes to the 140's which improved to the 120's with pain control. She was discharged home to continue her GRAIN P[employer]ER hypertensives and with pain management as above. She did not have any stroke like or cardiac symptoms during admission. Coronary artery disease/hyperlipidemia with history of IN S/P PCI without stent Maria Antonia was continued to her prior to admission rosuvastatin 20 mg p.o. nightly and aspirin low-dose daily. She did not experience any chest pain, chest pressure, lightheadedness, syncope, presyncope, vision change, or focal weakness during admission. GERD prophylaxis Pantoprazole 40 mg p.o. daily was continued during admission. DVT prophylaxis DVT prophylaxis was maintained with SCDs and heparin 5000 units subcutaneously. There was no suspicion for DVT during admission. (2) Pelvic fracture: (3) Hypertension: (4) CAD (coronary artery disease), [place] coronary artery: (5) Diabetes mellitus: (6) Vitamin D deficiency: (7) Pancreatic insufficiency: Total Time Total Time Spent Total Time Spent (In Minutes): >30 Discharge Plan Discharge Items Patient Disposition: Home - Self-Care Reason For Visit: PUBIC RAMUS FRACTURE Discharge Diagnosis: Super and inferior nondisplaced pubic ramus fracture Activity: Per Instructions section Non-emergency contact: Primary Care Provider Call non-emergency contact if: you have any medication questions, your pain is not controlled, your pain is worsening, your pain is unusual for you, your pain is concerning for you, you have a fever and your wound pain has increased Follow-up/Referrals: Skip Yee MD [Primary Care Provider] - Diet: Carb Count or DM1 Addtl Attending Provider Instructions: You were seen in the hospital for a fall and pelvic fracture. Imaging of your hip and pelvis confirmed a nondisplaced superior and inferior left sided pelvic fracture. No surgery was indicated. You were evaluated by physical therapy who recommended discharge home with home physical therapy services. You have been discharged on medications for pain. The goal of pain control is to allow you to ambulate, be functional, and participate in rehab with a tolerable level of pain; however, good pain control does not necessarily mean you will be pain free. Your pain should gradually improve as you continue to recover. For pain you may take Tylenol (Acetaminophen) 650mg every 4-6 hours as needed for pain. DO NOT take more than 3,000mg (3g) of tylenol in a 24 hour period. For pain not controlled by tylenol you may take tramadol 50mg every four hours as needed. This is a narcotic related medication. This medication may make you feel sleepy. Please do not drive or operate machinery while using this pain medication. If you develop any lightheadedness, dizziness, shortness of breath, difficulty breathing, or other symptoms please contact your primary care physician or call 911 for transport to the emergency department if you are very concerned. A followup appointment is being scheduled for you with your primary care physician, Dr. Yee. You should hear from his office regarding your appointment within the next 48 hours. If you do not hear from his office, or need to cancel/change your appointment, please call his office at . Your fracture was also concerning for osteoporosis. You have already been on bisphosphonate, vitamin D, and calcium therapy. Please discuss referral to endocrinology with Dr. Yee for intensification of your bone health regimen. If you develop any new or worsening symptoms, including fever, chills, sweats, shortness of breath, difficulty breathing, sudden weakness,vision change, chest pain, chest pressure, confusion, lightheadedness, passing out or feeling like you are going to pass out, or other symptoms concerning to you please contact your primary care physician, or call 911 for transport to the emergency department for re-evaluation if you are very concerned. Pending Studies at Discharge: No Stand-Alone Forms: My [facility], Opioid Pain Management Medications and DC Order Prescriptions: New tramadol [Ultram] 50 mg tablet 50 mg PO Q4H PRN (Reason: pain) 14 Days Qty: 28 RF: 0 Continued ascorbic acid (vitamin C) 500 mg Tablet 500 mg PO DAILY Qty: 0 RF: 0 aspirin 81 mg Tablet,Delayed Release (Dr/Ec) 81 mg PO DAILY Qty: 0 RF: 0 metformin [Glucophage XR] 500 mg Tablet Extended Release 24 Hr 1,000 mg PO PM Qty: 0 RF: 0 Creon 3,000-9,500- 15,000 unit Capsule,Delayed Release(Dr/Ec) 2 cap PO DIRECTED Qty: 0 RF: 0 Creon 3,000-9,500- 15,000 unit Capsule,Delayed Release(Dr/Ec) 3 cap PO TID Qty: 0 RF: 0 lisinopril 20 mg Tablet 20 mg PO DAILY Qty: 0 RF: 0 Humalog Mix 75-25(U-100)Insuln 100 unit/mL (75-25) Suspension 1 sliding scale dose SUBCUT UD Qty: 0 RF: 0 multivitamin with minerals Tablet 1 tab PO BID Qty: 0 RF: 0 calcium carbonate-vitamin D3 600 mg (1,500 mg)-2,500 unit Capsule 2 tab PO DAILY Qty: 0 RF: 0 rosuvastatin [Crestor] 20 mg Tablet 20 mg PO HS Qty: 0 RF: 0 ferrous sulfate 27 mg iron Tablet 65 mg PO DAILY Qty: 0 RF: 0 Lantus Solostar U-100 Insulin 100 unit/mL (3 mL) insulin pen 10 units SC QAM Qty: 0 RF: 0 Lantus Solostar U-100 Insulin 100 unit/mL (3 mL) insulin pen 8 units SUBCUT HS Qty: 0 RF: 0 pantoprazole 40 mg tablet,delayed release (DR/EC) 40 mg PO DAILY Qty: 30 RF: 5 nitrofurantoin monohyd/m-cryst [Macrobid] 100 mg capsule 100 mg PO BID Qty: 14 RF: 0 cyanocobalamin (vitamin B-12) 1,000 mcg tablet 1,000 mcg PO DAILY RF: 0 zinc gluconate 50 mg tablet 50 mg PO DAILY RF: 0 isosorbide mononitrate 30 mg tablet extended release 24 hr 30 mg PO QDL RF: 0 metoprolol tartrate 25 mg tablet 12.5 mg PO BID RF: 0 Discharge Orders: Discharge Order (Routine); Ordered 07/15/19 Ordered By: Boris Cooney Admission Data Admit Date/Time: 07/13/19 23:53 Attending Provider: Marty Brooks Admit Provider: Medardo Hinkle Primary Care Provider: Skip Yee Other Providers: Medardo Hinkle ; Boris Cooney Other Interventions: Discharge Summary Assessment (RN) Last Done: 07/15/19 13:11 DC Date/Time DO NOT enter until pt leaves facility: 07/15/19 14:03 Supervising Physician Co-Signing Physician Notes I personally examined the patient and verified all davis points of history and exam, discussed case, and agree with decision making with Dr Cooney. Walking better. Doing well with PT. Feels up to going home. Extensive discussions on sugar control, discussed checking postprandial glucoses to "grade her work" she notes she will start to work on this better. Vitals noted, in general she is in no distress and appears able to move with less pain. HEENT normocephalic atraumatic mucous membranes moist. Breathing u nlabored no accessory muscle use good effort. No focal neuro deficits. Osteoporotic pelvic fractureimproving. Stable for home, outpatient PT eval and treat. Uncontrolled diabetesoutpatient follow-up, extensive education on how to better titrate her bolus portion of her basal bolus regimen. She expressed good understanding. Resident Activity Tracking Resident Involvement: Resident Care Provided Care Provided: Adult Hospital Medicine
== END 2019-07-15 14:03 | disposition home or self-care (01) ==
LOC: 3W 20:19 → ED 20:19 → SUATTDRO 23:53 → 3W 07-14 00:29

== ENCOUNTER 2020-04-10 05:16 | Observation (INO) ==
--- NOTE | 2019-12-31 11:24 | Anesthesiology Consultation ---
Date of Service December 31, 2019 Assessment & Plan (1) Encounter for pre-operative examination: Chart Review Chart Review: Acceptable Risk for Surgery and Patient NOT seen in Pre Admission Testing Consults Requested none History Surgery Operation Date: 01/17/20 07:00 Proposed Procedures p Open Ventral Hernia Repair with Mesh - Didier Whiting, Height/Weight Height: 5 ft 2 in Weight: 60.781 kg Allergies Allergy/AdvReac Type Severity Reaction Status Date / Time oxycodone AdvReac Intermediate "BRAIN Verified 12/31/19 08:02 DOESN'T FUNCTION RIGHT" amoxicillin AdvReac Mild YEAST Verified 12/31/19 08:02 INFECTIONS Medications Home Medications Medication Instructions Recorded Confirmed Last Taken ascorbic acid (vitamin C) 500 mg PO BID #0 02/17/13 12/31/19 07/13/19 aspirin 81 mg PO PM #0 09/10/13 12/31/19 07/13/19 multivitamin with minerals 1 tab PO BID #0 06/25/16 12/31/19 07/13/19 rosuvastatin [Crestor] 20 mg PO HS #0 06/15/17 12/31/19 07/13/19 cyanocobalamin (vitamin B-12) 1,000 mcg PO 1200 tab 06/18/19 12/31/19 07/13/19 1,000 mcg tablet isosorbide mononitrate 30 mg PO 1200 07/13/19 12/31/19 07/13/19 metoprolol tartrate 12.5 mg PO BID 07/13/19 12/31/19 07/13/19 calcium carbonate-vitamin D3 600 1 tab PO BID 07/17/19 12/31/19 Unknown mg (1,500 mg)-800 unit tablet ferrous sulfate 325 mg (65 mg 325 mg PO QAM tab 07/17/19 12/31/19 Unknown iron) tablet insulin lispro 100 unit/mL 0 unit SQ AC ml 07/17/19 12/31/19 Unknown subcutaneous pen blood-glucose sensor #3 ea 10/03/19 12/31/19 Unknown blood-glucose transmitter #1 ea 10/03/19 12/31/19 Unknown pen needle, diabetic 32 gauge x #10 ea 10/03/19 12/31/19 Unknown " metformin 500 mg tablet,extended 1,000 mg PO BID #360 tab 10/08/19 12/31/19 Unknown release 24 hr blood sugar diagnostic #300 ea 11/12/19 12/31/19 Unknown [id number] 2 - 3 cap PO QID cap 12/20/19 12/31/19 Unknown 24,000-76,000-120,000 unit capsule,delayed rel BD Ultra-Fine Short Pen Needle 31 #100 ea NS 12/27/19 12/31/19 Unknown gauge x 5/16" Forteo 20 mcg/dose (600 mcg/2.4 20 mcg SQ DAILY #3 syr NS 12/27/19 12/31/19 Unknown mL) subcutaneous pen injector insulin glargine [Lantus Solostar 0 unit SC BID 12/31/19 12/31/19 Unknown U-100 Insulin] lisinopril 20 mg PO QAM 12/31/19 12/31/19 Unknown pantoprazole 40 mg PO QAM 12/31/19 12/31/19 Unknown Past Medical History Medical History Anemia CAD (coronary artery disease) FOLLOWS DR. AKERS Diabetes mellitus type 1 Diverticular disease Frequent UTI Hiatal hernia Hx SBO Hyperlipidemia Hypertension Myocardial Infarction 2013> [facility]> CATH Osteoarthritis Osteoporosis Pulmonary emboli BILAT > DUE TO LONG ABDOMINAL SURGERY > 2010 Past Family History Family History Father Hyperlipidemia Essential hypertension Hypertension Other specified hearing loss, unspecified ear Mother Hypertension Cardiac disorder Sister Hyperlipidemia Essential hypertension Esophageal reflux Brother Translocation Down syndrome Hypertension Past Surgical History Surgical History History of bilateral oophorectomy History of History of cardiac cath 2014 >[facility]> NO STENTS History of cholecystectomy History of colonoscopy History of colonoscopy History of dilatation and curettage History of esophagogastroduodenoscopy (EGD) History of hysterectomy, supracervical History of pancreatectomy History of repair of hiatal hernia History of splenectomy History of surgery on wrist LEFT History of tooth extraction Hx of BSO (bilateral salpingo-oophorectomy) Social History Smoking Status: Never smoker Do You Dip or Chew Tobacco: No Hx Alcohol Use: Yes Alcohol type: hard liquor alcohol intake frequency: holidays/special occasions only Hx Substance Use: No substance use type: does not use Testing Laboratory Results Laboratory Tests 12/27/19 12/27/19 09:23 09:23 WBC 6.12 Hgb 13.3 Hct 41.1 Plt Count 332 Sodium 137 Potassium 4.7 Chloride 104 Carbon Dioxide 27 BUN 17 Creatinine 0.82 Glucose 229 H Electrocardiogram Date: 12/20/19 Findings: + NSR @ Other Testing Per last director of physical security visit in 2019: No anginal symptoms. No stress ischemia on most recent stress test. Bilateral ICA<50% stenosis.
[~2020-04-10 05:16] MED LIST changes: -ASCO-63 PO; -ASPI81TA28 PO; -B-CO1CAP17 PO; -BIOT1CAP3 PO; -CALC-388 PO; +CLINDAMYCIN 900 MG in DEXTROSE 5% 50 ML IV SCH; -CYCL0.052 OP; -FERR83TA2 PO; -INSDGIPEN SC; -INSU100I2 SC; -ISOS30TA35 PO; -LISI-726 PO; -LPR25 PO; +LR 15ML/HR IV SCH; -METF500T5 PO; -MULT-513 PO; -OMEG10007 PO; -PANC24002 PO; -PANC6000 PO; -PANT40TA2 PO; -ROSU20TA PO; -ZOLE5INJ3 INJ; -ZOLEDRONIC ACID INJ 5 MG in EMPTY BAG 0 ML IV SCH
[2020-04-10] MEDS ORDERED: LR 15ML/HR IV SCH (06:00)
[2020-04-10] MEDS ORDERED: CLINDAMYCIN 900 MG in DEXTROSE 5% 50 ML IV SCH (06:00)
[2020-04-10] MEDS ORDERED: fentaNYL citrate 100 MCG/2 ML VIAL ONE ×2 (06:40→08:39)
[2020-04-10] MEDS ORDERED: DEXAMETHASONE SOD INJ 4 MG/ML VIAL ONE (06:40)
[2020-04-10] MEDS ORDERED: LIDOCAINE HCL 2% 2 ML VIAL/AMP(20MG/ML) INFIL ONE (06:40)
[2020-04-10] MEDS ORDERED: MIDAZOLAM HCL 1 MG/ML 2ML VIAL ONE (06:40)
[2020-04-10] MEDS ORDERED: PROPOFOL IV EMULSION 10 MG/ML 20 ML VIAL IV ONE (06:40)
[2020-04-10] MEDS ORDERED: ONDANSETRON INJ 2 MG/ML 2 ML VIAL ONE ×2 (06:40→09:52)
[2020-04-10] MEDS ORDERED: HYDROmorphone INJ 2 MG/ML SYR/VIAL IV PRN (06:44)
[2020-04-10] MEDS ORDERED: ATROPINE SULFATE 0.1 MG/ML 10ML SYR IV PRN (06:44)
[2020-04-10] MEDS ORDERED: ONDANSETRON INJ 2 MG/ML 2 ML VIAL IV PRN ×2 (06:44→10:13)
[2020-04-10] MEDS ORDERED: ePHEDrine sulfate 50 MG/ML AMP IV PRN (06:44)
[2020-04-10] MEDS ORDERED: EPINEPHrine INJ 1 MG/ML AMP ONE (06:55)
[2020-04-10] MEDS ORDERED: BUPIVACAINE 0.5 % 5 MG/1 ML MPF 30ML VIAL ONE (06:55)
--- NOTE | 2020-04-10 06:56 | History & Physical Report ---
Date of Service April 10, 2020 Assessment & Plan (1) Incisional hernia: We previously discussed and rediscussed today the options and risks which would include bleeding, infection, infection of mesh requiring explant, DVT, PE, MO, CVA, injury to another organ such as bowel etc. Following our discussion I answered all of her questions. We will proceed this a.m. with open incisional hernia repair with mesh. History of Present Illness Primary Care Provider: Collin Yee MD 69-year-old female with a known incisional hernia. As result of a large surgery done at [facility] involving a partial pancreatectomy splenectomy and cholecystectomy. She was doing a lot of coughing and feels this is the etiology of her hernia. It is slowly enlarging. Allergies Allergy/AdvReac Type Severity Reaction Status Date / Time oxycodone AdvReac Intermediate "BRAIN Verified 04/10/20 05:34 DOESN'T FUNCTION RIGHT" amoxicillin AdvReac Mild YEAST Verified 04/10/20 05:34 INFECTIONS Home Medications Home Medications Medication Instructions Recorded Confirmed Type ascorbic acid (vitamin C) 500 mg PO BID #0 02/17/13 04/10/20 History aspirin 81 mg PO PM #0 09/10/13 04/10/20 History multivitamin with minerals 1 tab PO BID #0 06/25/16 04/10/20 History cyanocobalamin (vitamin B-12) 1,000 mcg PO 1200 tab 06/18/19 04/10/20 History 1,000 mcg tablet isosorbide mononitrate 30 mg PO 1200 07/13/19 04/10/20 History metoprolol tartrate 12.5 mg PO BID 07/13/19 04/10/20 History calcium carbonate-vitamin D3 600 1 tab PO BID 07/17/19 04/10/20 History mg (1,500 mg)-800 unit tablet ferrous sulfate 325 mg (65 mg 325 mg PO QAM tab 07/17/19 04/10/20 History iron) tablet insulin lispro 100 unit/mL 0 unit SQ AC ml 07/17/19 04/10/20 History subcutaneous pen blood-glucose sensor #3 ea 10/03/19 03/13/20 History blood-glucose transmitter #1 ea 10/03/19 03/13/20 History pen needle, diabetic 32 gauge x #10 ea 10/03/19 03/13/20 History 5/32" metformin 500 mg tablet,extended 1,000 mg PO BID #360 tab 10/08/19 04/10/20 Rx release 24 hr blood sugar diagnostic #300 ea 11/12/19 03/13/20 Rx [id number] 2 - 3 cap PO QID cap 12/20/19 04/10/20 History 24,000-76,000-120,000 unit capsule,delayed rel BD Ultra-Fine Short Pen Needle 31 #100 ea NS 12/27/19 03/13/20 Rx gauge x 5/16" insulin glargine [Lantus Solostar 0 unit SC BID 12/31/19 04/10/20 History U-100 Insulin] lisinopril 20 mg PO QAM 12/31/19 04/10/20 History pantoprazole 40 mg PO QAM 12/31/19 04/10/20 History Tymlos 80 mcg SQ DAILY 90 Days #4.68 ml NS 01/08/20 04/10/20 Rx rosuvastatin 20 mg tablet 20 mg PO HS #90 tab 01/15/20 04/10/20 Rx Past Med/Surg History Medical History Anemia CAD (coronary artery disease) FOLLOWS DR. AKERS Diabetes mellitus type 1 Diverticular disease Frequent UTI Hiatal hernia Hx SBO Hyperlipidemia Hypertension Myocardial Infarction 2013> [facility]> CATH Osteoarthritis Osteoporosis Pulmonary emboli BILAT > DUE TO LONG ABDOMINAL SURGERY > 2010 Surgical History History of bilateral oophorectomy History of History of cardiac cath 2013 >[facility]> NO STENTS History of cholecystectomy History of colonoscopy History of colonoscopy History of dilatation and curettage History of esophagogastroduodenoscopy (EGD) History of hysterectomy, supracervical History of pancreatectomy History of repair of hiatal hernia History of splenectomy History of surgery on wrist LEFT History of tooth extraction Hx of BSO (bilateral salpingo-oophorectomy) Family History Father Hyperlipidemia Essential hypertension Hypertension Other specified hearing loss, unspecified ear Mother Hypertension Cardiac disorder Sister Hyperlipidemia Essential hypertension Esophageal reflux Brother Translocation Down syndrome Hypertension Social History Preferred Language: [place]i Communication Ability: Effective Hearing Ability: Normal Vault Manager Required: No Beliefs That Will Affect Care: None marital status: Current Living Situation: Spouse and Family Current Living Situation Comment: Mentally handicap sister current occupational status: retired 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 Other Information That Helps Us Care for You: No Feels Safe at Home: Yes Safety Concerns: Feels Safe At This Time Smoking Status: Never smoker Do You Dip or Chew Tobacco: No ; Second Hand Expo sure: No ; Tobacco Cessation Education Requested by Patient: No Hx Alcohol Use: Yes Alcohol type: hard liquor Alcohol Intake Frequency Comment: Very rarely Hx Substance Use: No caffeine: No Seatbelt Use: always Review of Systems All systems reviewed & are unremarkable except as noted in HPI & below Physical Exam Constitutional: WD/WN, vitals as above no acute distress and not ill appearing Eyes: PERRL, conjunctivae normal, anicteric sclerae EOM intact bilaterally ENMT: external ear and nose normal, oropharynx normal Ears: no hearing impairment Neck: trachea midline, no thyromegaly Respiratory: normal respiratory effort; no respiratory distress and does not use accessory muscles Cardiovascular: Rate/Rhythm: regular rate and regular rhythm Gastrointestinal (Abdomen): Soft. Obvious moderate sized supraumbilical incisional hernia. Reducible. Minimal tenderness. Skin: no rashes, warm and dry Psychiatric: Orientation: alert, oriented x 3 and cooperative Results & Data Vital Signs (Past 12 Hours) Vital Signs Temp Pulse Resp BP Pulse Ox 04/10/20 05:40 37.7 C H 82 18 160/98 H 94
[2020-04-10] MEDS ORDERED: GLYCOPYRROLATE 0.2 MG/ML VIAL ONE (07:29)
[2020-04-10] MEDS ORDERED: NEOSTIGMINE METHYLSULFATE 5 MG/5 ML SYR ONE (07:29)
[2020-04-10] MEDS ORDERED: ROCURONIUM BROMIDE 10 MG/ML 5 ML VIAL IV ONE (07:29)
[2020-04-10] MEDS ORDERED: ARISTA ABSORBABLE HEMOSTAT 3GM TOP ONE (08:21)
--- NOTE | 2020-04-10 08:54 | Operative Report ---
PG Post Operative Report Pre & Post Diagnosis Operation Date: 04/10/20 07:00 Pre-Op Diagnosis: Incisional hernia Post-Op Diagnosis: Incisional hernia times 3; adhesions I identified the patient and participated in the time-out.: Yes Procedure Operation Date: 04/10/20 07:00 Actual Procedures p Open Ventral Hernia Repair with Mesh(Not Applicable) times 3; enterolysis- Didier Whiting DO Surgeon Didier Whiting DO Bpm Developer steve van Estimated Blood Loss 15 Findings Consistent with Post-Op Diagnosis Specimens none Description of Procedure After informed consent was obtained the patient was taken to the operating room and placed in supine position. After successful intubation the abdomen was sterilely prepped and draped in usual fashion. I began with a supraumbilical incision over what I initially thought was a single fascial defect. We carried this down through the soft tissue using cautery. We opened the hernia sac using Metzenbaum scissors and excised it using cautery. This exposed a 4 to 5 cm hernia defect which we grasped the fascial edges using Allis clamps to skeletonize. There were 2 smalerl hernias one between the umbilicus and this hernia one between the xiphoid process and this hernia. They were relatively thin bands of fascia and so I divided the fascial bridges creating 1 larger defect. There were multiple small bowel adhesions to the undersurface of the hernia sac as well as the fascia. These were taken down using traction countertraction and Metzenbaum scissor lysis. Once we had the fascia skeletonized and several centimeters in all directions we primarily closed the fascia using #1 Ethibond in simple interrupted fashion. Once this was accomplished we thoroughly irrigated the wound. Any small bleeding points were controlled using cautery. A 20 x 20 cm of ovitex mesh was used as an onlay. It was cut to fit appropriately so that we had good overlap in all directions. This was secured using 0 Ethibond in interrupted fashion around the periphery of the mesh as well as through the central portions of the mesh. The mesh laid nice and flat and tension-free. Thorough irrigation was performed. The wound was then closed by first placing Kate powder on all raw surfaces to help prevent seroma and hematoma formation. A 7 flat ADINA drain was also placed in the subcutaneous space and brought out through a separate stab incision secured to the skin using 2-0 silk. The wound was then closed in multiple layers using 0 Vicryl for deep layers 2-0 Vicryl for mid layers and skin di for the skin. A silver dressing and abdominal binder were placed. The patient was awakened extubated and transferred recovery in stable condition. My physician department assistant was present for the entire case. He will prep the patient. Helped with retraction throughout my dissection as well as with wound closure mesh placement and dressing placement. I attest to the content of the Intraoperative Record and any orders documented therein. Any exceptions are noted below.
[2020-04-10] MEDS: fentaNYL citrate 100 MCG/2 ML VIAL IV PRN ×3 (09:13→09:25)
--- NOTE | 2020-04-10 09:39 | Anesthesiology Progress Note ---
Date of Service April 10, 2020 Anesthesia Post Procedure Vital Signs Vital Signs: Temp Pulse Pulse Resp BP BP Pulse Ox 04/10/20 09:35 37.3 C 74 18 158/80 H 95 04/10/20 09:25 74 16 163/93 H 94 04/10/20 09:15 73 14 146/78 H 95 04/10/20 09:05 72 16 151/89 H 94 04/10/20 08:55 68 12 145/79 H 97 04/10/20 08:45 37.1 C 69 12 146/83 H 96 04/10/20 05:40 37.7 C H 82 18 160/98 H 94 Pain Intensity Abdomen: Pain Intensity: 2 Transfer of Care Handoff Completed per policy Notes Mental Status: alert / awake / arousable and participated in evaluation Patient Amnestic to Procedure: Yes Nausea / Vomiting: adequately controlled Pain: adequately controlled Airway Patency, RR, SpO2: stable & adequate BP & HR: stable & adequate Hydration State: stable & adequate Anesthetic Complications: no major complications apparent and Pt Satisfied with anesthetic care
[2020-04-10] MEDS ORDERED: GLUCOSE 40% GEL 15 GM TUBE PO PRN (10:13)
[2020-04-10] MEDS ORDERED: GLUCOSE 10 TABS/TUBE PO PRN (10:13)
[2020-04-10] MEDS ORDERED: HYDROmorphone INJ 0.5 MG/0.5 ML SYR IV PRN (10:13)
[2020-04-10] MEDS ORDERED: CARBOHYDRATES FOR HYPOGLYCEMIA PO PRN (10:13)
[2020-04-10] MEDS ORDERED: GLUCAGON FOR INJ 1 MG VIAL SQ PRN (10:13)
[2020-04-10] MEDS ORDERED: ACETAMINOPHEN 325 MG TAB PO PRN (10:13)
[2020-04-10] MEDS ORDERED: DEXTROSE 50% 50 ML SYRINGE IV PRN (10:13)
[2020-04-10] MEDS ORDERED: PHARMACY GLYCEMIC MGMT CONSULT PRN (10:30)
[2020-04-10] MEDS ORDERED: HYDROmorphone INJ 1 MG/ML SYRINGE ONE (10:32)
[2020-04-10] MEDS ORDERED: INSULIN GLARGINE SOLOSTAR 100 UNITS/ML 3 ML PEN SC ONE ×2 (11:00→21:00)
--- NOTE | 2020-04-10 11:02 | Pharmacy Report ---
Glycemic Control Consultation - Date of Service April 10, 2020 - Scope Scope: Glycemic Pharmacist consulted for glycemic control and to write orders per [facility] inpatient glycemic control protocol. - Objective Weight: 64.6 kg Accuchecks BSG (last 24hrs): 04/10/20 04/10/20 05:31 08:52 POC Glucose 279 H 251 H - Recent Pertinent Medications Outpatient Anti-diabetic Regimen: * Lantus 10 units Qam, 8 units HS * Lispro utilizes CR of 5 + SSI starting for BSG >150 (she reports 2 units 150- 200, 3 units 201-250 etc) * A1c = 8.7 % 12/13 Risk Factors for Insulin Resistance: * Steroids: unclear * Recent Surgery: POD 0 * Diet: yes - Assessment & Plan Assessment & Plan: ASSESSMENT: * 69 year old now s/p hernia repair, POD 0. Pharmacy consulted for glycemic management postop. * Type 1 diabetic managed by [place] [facility] outpatient - spoke with patient to verify insulin doses at home. She had been instructed to take only half of her basal insulin this AM - will give other half now postop * BSGs elevated this morning, patient reports forgetting to take her humalog last evening and feels that is why it is elevated this AM * Plan to use similar parameters for insulin as she does at home. Patient reports in a lot of pain postop/unclear if she will eat much - may scale back slightly on Lantus at HS PLAN FOR INPATIENT GLYCEMIC CONTROL: * Basal insulin * Lantus 10 units this AM (took 5 units [employer] + 5 now) * Lantus 6-8 units HS * Bolus insulin * NovoLog per scale ACHS or Q6hrs while NPO * Goal Range: Low 110 mg/dL - High 140 mg/dL * Correction Factor: 35 mg/dL/unit * Nutritional / Prandial insulin per carb ratio of 1 unit per 8 grams CHO consumed * Please note that the plan above was derived based on current level of insulin resistance and hospital stress. These recommendations are appropriate for inpatient admission only. Plan of care upon discharge will need to be reassessed to avoid potential outpatient hypo/hyperglycemia. Thank you.
[2020-04-10] MEDS: HYDROmorphone INJ 1 MG/ML SYRINGE IV PRN ×2 (12:40→18:18)
[2020-04-10] MEDS: INSULIN ASPART 100 UNITS/ML 3 ML PEN SC SCH ×3 (12:45→21:05)
[2020-04-10] MEDS: ISOSORBIDE MONO EXTENDED REL 30 MG TABCR PO SCH (13:01)
[2020-04-10] MEDS: lisinopriL 20 MG TAB PO SCH (13:01)
[2020-04-10] MEDS: PANTOprazole 40 MG TAB PO SCH (13:01)
[2020-04-10] MEDS: METOPROLOL TARTRATE 25 MG TAB PO SCH ×2 (13:01→21:03)
[2020-04-10] MEDS: CLINDAMYCIN 600 MG in DEXTROSE 5% 50 ML IV SCH ×2 (14:35→23:11)
[2020-04-10] MEDS: SODIUM CHLORIDE 0.9% 1000ML 1,000 ML IV SCH ×3 (14:36→23:10)
[2020-04-10] MEDS: ROSUVASTATIN CALCIUM 20 MG TAB PO SCH (21:03)
[2020-04-10] MEDS: ASPIRIN 81 MG ECTAB PO SCH (21:03)
[2020-04-11] MEDS: HYDROmorphone INJ 1 MG/ML SYRINGE IV PRN ×2 (01:17→05:32)
[2020-04-11] MEDS: SODIUM CHLORIDE 0.9% 1000ML 1,000 ML IV SCH ×2 (04:21→16:36)
[2020-04-11] MEDS: CLINDAMYCIN 600 MG in DEXTROSE 5% 50 ML IV SCH (06:13)
[2020-04-11] MEDS ORDERED: OXYCODONE HCL IR 5 MG TAB (IMMEDIATE RELEASE) PO PRN (08:05)
--- NOTE | 2020-04-11 08:10 | Surgery Progress Note ---
Date of Service April 11, 2020 Assessment & Plan (1) Incisional hernia: pod 1 not ready for d/c will change acetaminophen to IV ATC will add ibuprofen 800 mg q8 hours ATC add oxycodone oral plan d/c once more comfortable. Dr. Kinney covering for weekend. Subjective pt seen. feels "awful"... pain, nausea, fatigue etc.... poor sleep since surgery. Physical Exam Physical Exam: alert. uncomfortable dressings c/d/i. ADINA small amount of pink/serous fluid. Results & Data Vital Signs (Past 12 Hours) Vital Signs Temp Pulse Resp BP BP Pulse Ox 04/11/20 07:00 37.0 C 69 20 129/78 93 04/11/20 02:44 37.3 C 75 19 123/70 94 04/10/20 23:02 37.1 C 78 16 119/65 94 PG Care Time/CCT Total # of Minutes Spent Total Time Spent with Patient: Total time spent is greater than 50% in coordination of care (as documented) at patient's floor/unit and/or counseling patient: Coding Level of Care Code None Diagnoses Incisional hernia K43.2
[2020-04-11] MEDS: METOPROLOL TARTRATE 25 MG TAB PO SCH ×2 (08:59→21:16)
[2020-04-11] MEDS: IBUPROFEN 800 MG TAB PO SCH ×2 (08:59→16:36)
[2020-04-11] MEDS ORDERED: INSULIN GLARGINE SOLOSTAR 100 UNITS/ML 3 ML PEN SC SCH ×2 (09:00→21:00)
[2020-04-11] MEDS: lisinopriL 20 MG TAB PO SCH (09:00)
[2020-04-11] MEDS: PANTOprazole 40 MG TAB PO SCH (09:00)
[2020-04-11] MEDS: INSULIN ASPART 100 UNITS/ML 3 ML PEN SC SCH ×4 (09:03→21:23)
--- NOTE | 2020-04-11 12:31 | Pharmacy Report ---
Pharmacy Glycemic Short Note 2 - Date of Service April 11, 2020 - Glycemic Short BSG Results (Last 24 hours): 04/10/20 04/10/20 04/11/20 16:25 20:44 05:49 POC Glucose 216 H 220 H 150 H 04/11/20 04/11/20 08:10 12:13 POC Glucose 197 H 201 H ASSESSMENT: * 69 year old now s/p hernia repair, POD 0. Pharmacy consulted for glycemic management postop. * Type 1 diabetic managed by [place] endocrinology outpatient - spoke with patient to verify insulin doses at home. She had been instructed to take only half of her basal insulin this AM - will give other half now postop * BSGs elevated this morning, patient reports forgetting to take her humalog last evening and feels that is why it is elevated this AM * Plan to use similar parameters for insulin as she does at home. Patient reports in a lot of pain postop/unclear if she will eat much - may scale back slightly on Lantus at HS 04/11: * Patient received 36 units of insulin yesterday, of which 18 were basal * Fasting BSG 150 mg/dL - continue same basal insulin * No change in CF/CR, however may need to tighten CR as diet advances PLAN FOR INPATIENT GLYCEMIC CONTROL: * Basal insulin * Lantus 10 units Qam * Lantus 8 units HS * Bolus insulin * NovoLog per scale ACHS or Q6hrs while NPO * Goal Range: Low 110 mg/dL - High 140 mg/dL * Correction Factor: 35 mg/dL/unit * Nutritional / Prandial insulin per carb ratio of 1 unit per 7 grams CHO consumed PLAN FOR DISCHARGE: * Patient follows [facility] endocrinology - would recommend follow up and continued care with them post discharge
[2020-04-11] MEDS: ISOSORBIDE MONO EXTENDED REL 30 MG TABCR PO SCH (12:43)
[2020-04-11] MEDS: ACETAMINOPHEN 1000 MG/100 ML IV IV SCH ×2 (13:46→21:19)
[2020-04-11] MEDS ORDERED: LIPASE/PROTEASE/AMYLASE PO PRN (19:43)
[2020-04-11] MEDS: ASPIRIN 81 MG ECTAB PO SCH (21:16)
[2020-04-11] MEDS: ROSUVASTATIN CALCIUM 20 MG TAB PO SCH (21:16)
[2020-04-12] MEDS: IBUPROFEN 800 MG TAB PO SCH ×2 (00:02→08:37)
[2020-04-12] MEDS: SODIUM CHLORIDE 0.9% 1000ML 1,000 ML IV SCH (05:01)
[2020-04-12] MEDS: ACETAMINOPHEN 1000 MG/100 ML IV IV SCH (05:50)
[2020-04-12] MEDS ORDERED: LIPASE/PROTEASE/AMYLASE PO SCH (08:00)
[2020-04-12] MEDS: lisinopriL 20 MG TAB PO SCH (08:37)
[2020-04-12] MEDS: METOPROLOL TARTRATE 25 MG TAB PO SCH (08:38)
[2020-04-12] MEDS: PANTOprazole 40 MG TAB PO SCH (08:38)
[2020-04-12] MEDS ORDERED: INSULIN GLARGINE SOLOSTAR 100 UNITS/ML 3 ML PEN SC SCH ×2 (09:00→21:00)
[2020-04-12] MEDS: INSULIN ASPART 100 UNITS/ML 3 ML PEN SC SCH (09:28)
--- NOTE | 2020-04-12 09:53 | Pharmacy Report ---
Pharmacy Glycemic Short Note 2 - Date of Service April 12, 2020 - Glycemic Short BSG Results (Last 24 hours): 04/11/20 04/11/20 04/11/20 12:13 17:06 20:32 POC Glucose 201 H 140 H 152 H 04/12/20 08:17 POC Glucose 80 ASSESSMENT: * 69 year old now s/p hernia repair, POD 0. Pharmacy consulted for glycemic management postop. * Type 1 diabetic managed by [place] endocrinology outpatient - spoke with patient to verify insulin doses at home. She had been instructed to take only half of her basal insulin this AM - will give other half now postop * BSGs elevated this morning, patient reports forgetting to take her humalog last evening and feels that is why it is elevated this AM * Plan to use similar parameters for insulin as she does at home. Patient reports in a lot of pain postop/unclear if she will eat much - may scale back slightly on Lantus at HS 04/11: * Patient received 36 units of insulin yesterday, of which 18 were basal * Fasting BSG 150 mg/dL - continue same basal insulin * No change in CF/CR, however may need to tighten CR as diet advances 04/12 * Pod # 2 s/p hernia repair. She received 29 units of insulin yesterday. * Fasting BSG trending downward (150->80 mg/dL). I will decrease basal insulin by 20% for today. * Post prandial BSGs greatly improved yesterday. Continue same Novolog parameters for now. PLAN FOR INPATIENT GLYCEMIC CONTROL: * Basal insulin * Lantus 7 units this morning * Lantus 8 units qHS * Bolus insulin * NovoLog per scale ACHS or Q6hrs while NPO * Goal Range: Low 110 mg/dL - High 140 mg/dL * Correction Factor: 35 mg/dL/unit * Nutritional / Prandial insulin per carb ratio of 1 unit per 7 grams CHO consumed PLAN FOR DISCHARGE: * Patient follows [facility] endocrinology - would recommend follow up and continued care with them post discharge
--- NOTE | 2020-04-12 10:00 | Surgery Progress Note ---
Date of Service April 12, 2020 Assessment & Plan (1) Incisional hernia: Postoperative day #2 status post repair of ventral hernia Feels very well today Tolerating diet Can be discharged to home Will discharge with drain Should call Dr. Whiting's office on Tuesday to schedule a follow-up appointment Subjective Postoperative day #2 status post repair of ventral hernia Feels "great" Dramatically better than yesterday Ambulating well Tolerating regular diet without nausea or vomiting [facility] and 10 last shift, all serosanguineous Physical Exam Gastrointestinal (Abdomen): Inspection/Auscultation: normal bowel sounds and + abdominal surgical incision (Clean, dry and intact); abdomen not distended Percussion/Palpation: + abdomen tender (Minimal incisional) and abdomen soft Results & Data Vital Signs (Past 12 Hours) Vital Signs Temp Pulse Resp BP Pulse Ox 04/12/20 06:15 36.9 C 67 19 155/82 H 90 04/11/20 23:11 36.9 C 65 20 123/70 92 Laboratory Results 04/12/20 04/11/20 04/11/20 Range/Units 08:17 20:32 17:06 POC Glucose 80 152 H 140 H (70-99) mg/dl 04/11/20 Range/Units 12:13 POC Glucose 201 H (70-99) mg/dl
--- NOTE | 2020-04-14 13:53 | Discharge Summary ---
Date of Service April 14, 2020 Admission HPI Per Admitting Provider 69-year-old female with a known incisional hernia. As result of a large surgery done at [facility] involving a partial pancreatectomy splenectomy and cholecystectomy. She was doing a lot of coughing and feels this is the etiology of her hernia. It is slowly enlarging. Principal Diagnosis Incisional hernia Discharge Exam Gastrointestinal (Abdomen) Inspection/Auscultation: + abdominal surgical incision (clean, dry, ADINA output 55 cc in 24 hours) Discharge Data Allergies Allergy/AdvReac Type Severity Reaction Status Date / Time oxycodone AdvReac Intermediate "BRAIN Verified 04/10/20 05:34 DOESN'T FUNCTION RIGHT" amoxicillin AdvReac Mild YEAST Verified 04/10/20 05:34 INFECTIONS Procedures Performed Operation Date: 04/10/20 07:00 Actual Procedures p Open Ventral Hernia Repair with Mesh(Not Applicable) - Didier Whiting DO Hospital Course (1) Incisional hernia: 69 y/o female with incisional hernia was taken to the operating room for open repair. There were three defects which were incorporated into repair with mesh. She was transferred to the surgical floor for observation. She continued to require IV analgesics on POD 1. On day two her pain was better controlled and her nausea had resolved. She was tolerating diet and was stable for discharge. Total Time Total Time Spent Total Time Spent (In Minutes): 15 Discharge Plan Discharge Items Patient Disposition: Home - Self-Care Reason For Visit: Ventral Hernia, Diabetes Discharge Diagnosis: open ventral hernia repair with mesh Activity: Per Instructions section Lifting: No more than 10 pounds Bathing Comment: may shower, no soaking in tubs Exercise/Sports: Wait until after follow-up appointment Driving/Machine Use: Resume 3 days after discharge Non-emergency contact: Surgeon Call non-emergency contact if: you have any medication questions, your symptoms worsen, your pain is not controlled, your pain is worsening, your pain is unusual for you, you have a fever, your temperature is above 101.5, your wound has increased redness, your wound has increased drainage and your wound pain has increased Follow-up/Referrals: Skip Yee MD [Primary Care Provider] - Didier Whiting DO [Surgeon] - (Please call to schedule follow up in clinic within 2 weeks) Diet: Regular Addtl Attending Provider Instructions: Pending Studies at Discharge: No Stand-Alone Forms: My [facility] [employer], Smoking Cessation Medications and DC Order Prescriptions: Continued ascorbic acid (vitamin C) 500 mg Tablet 500 mg PO BID Qty: 0 RF: 0 aspirin 81 mg Tablet,Delayed Release (Dr/Ec) 81 mg PO PM Qty: 0 RF: 0 multivitamin with minerals Tablet 1 tab PO BID Qty: 0 RF: 0 metformin [Glucophage XR] 500 mg tablet extended release 24 hr 1,000 mg PO BID Qty: 360 RF: 3 (DME) OneTouch Ultra Blue Test Strip Strip See Rx Instructions .ROUTE .MEDSUPPLY Qty: 300 RF: 3 Tymlos 80 mcg (3,120 mcg/1.56 mL) pen injector 80 mcg SQ DAILY 90 Days Qty: 4.68 RF: 3 rosuvastatin [Crestor] 20 mg tablet 20 mg PO HS Qty: 90 RF: 3 calcium carbonate-vitamin D3 600 mg(1,500mg) -800 unit tablet 1 tab PO BID RF: 0 ferrous sulfate 325 mg (65 mg iron) tablet 325 mg PO QAM RF: 0 insulin lispro [Humalog KwikPen Insulin] 100 unit/mL insulin pen 0 unit SQ AC RF: 0 (DME) Dexcom G5 Transmitter device See Rx Instructions .ROUTE .MEDSUPPLY Qty: 1 RF: 0 (DME) Dexcom G5-G4 Sensor device See Rx Instructions .ROUTE .MEDSUPPLY Qty: 3 RF: 0 (DME) pen needle, diabetic [BD Jessi 2nd Gen Pen Needle] 32 gauge x 5/32" needle See Rx Instructions .ROUTE .MEDSUPPLY Qty: 10 RF: 0 vejiyo-vprsairz-wpsffco 24,000-76,000 -120,000 unit capsule,delayed release(DR/EC) 2 - 3 cap PO QID RF: 0 cyanocobalamin (vitamin B-12) 1,000 mcg tablet 1,000 mcg PO 1200 RF: 0 (DME) pen needle, diabetic [BD Ultra-Fine Short Pen Needle] 31 gauge x 5/16" needle See Rx Instructions .ROUTE .MEDSUPPLY Qty: 100 RF: 3 isosorbide mononitrate 30 mg tablet extended release 24 hr 30 mg PO 1200 RF: 0 metoprolol tartrate 25 mg tablet 12.5 mg PO BID RF: 0 lisinopril 20 mg tablet 20 mg PO QAM RF: 0 pantoprazole 40 mg tablet,delayed release (DR/EC) 40 mg PO QAM RF: 0 Lantus Solostar U-100 Insulin 100 unit/mL (3 mL) insulin pen 0 unit SC BID RF: 0 Discharge Orders: Discharge Order (Routine); Ordered 04/12/20 Ordered By: Bennie Murillo/Other Patient Handouts: DVT Post Op Prevention Admission Data Admit Date/Time: 04/10/20 08:52 Attending Provider: Didier Whiting Admit Provider: Didier Whiting Primary Care Provider: Skip Yee Other Interventions: Discharge Summary Assessment (RN) Last Done: 04/12/20 10:59 DC Date/Time DO NOT enter until pt leaves facility: 04/12/20 11:44 Coding Level of Care Code D/C Day Management <30 mins Diagnoses Incisional hernia K43.2
== END 2020-04-12 11:44 | disposition home or self-care (01) ==
LOC: 3W 05:16 → ASU 05:16